=== PATIENT | female | born 1950 | race Caucasian/White ===

== ENCOUNTER 2018-07-08 17:57 | Emergency (ER) | payer BC, OTHER ==
--- NOTE | 2018-07-08 19:31 | EDM.PDOC ---
ED HPI GENERAL MEDICAL PROBLEM - General Chief Complaint: Eye Problems Stated Complaint: EYE BLEEDING Time Seen by Provider: 07/08/18 19:26 Source of Information: Reports: Patient History Limitations: Reports: No Limitations - History of Present Illness INITIAL COMMENTS - FREE TEXT/NARRATIVE: 68 yo female had surgery on her R eye on Thursday of this week on an eye muscle. She has had some bleeding on and off since then, but this afternoon the bleeding was heavier so she came here. She did not attempt to reach her eye doctor. She has no current pain or visual impairment. Bleeding was stopped on arrival. At one point when the bleeding was heaviest blood came out her R nostril and this worried her. She denies any injury to that eye since her surgery. 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) - Related Data Allergies Allergy/AdvReac Type Severity Reaction Status Date / Time triamcinolone [From Kenalog] Allergy Rash Verified 06/24/17 20:52 Home Meds: Home Meds Acetaminophen/Caffeine [Excedrin Tension Headache] 2 tab PO BID PRN 11/26/14 [ History] Armodafinil [Nuvigil] 125 mg PO BID 11/26/14 [History] Calcium Carbonate [Calcium] 500 mg PO DAILY 11/26/14 [History] Cyanocobalamin (Vitamin B-12) [Vitamin B-12] 1 tab PO DAILY 11/26/14 [History] Furosemide [Lasix] 20 mg PO DAILY 11/26/14 [History] Lutein/Minerals/Vit A,C & E [Ocuvite] 1 tab PO DAILY 11/26/14 [History] Sertraline [Zoloft] 50 mg PO BEDTIME 11/26/14 [History] atoMOXetine HCl [Strattera] 60 mg PO DAILY 11/26/14 [History] Past Medical History HEENT History: Reports: Impaired Vision, Sinusitis Cardiovascular History: Reports: Hypertension Other Cardiovascular History: Lymph edema Respiratory History: Reports: Sleep Apnea Other Respiratory History: Recent pneumonia @ nodules l lung 3 and 4 ml Genitourinary History: Reports: Urinary Incontinence, Other (See Below) Other Genitourinary History: occ uti 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: Reports: , Other (See Below) Other TIRE 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: Partial hysterectomy Neurological History: Reports: TIA Psychiatric History: Reports: Depression Oncologic (Cancer) History: Reports: Basal Cell Carcinoma Dermatologic History: Reports: Other (See Below) Other Dermatologic History: dry skin - Infectious Disease History Infectious Disease History: Reports: Chicken Pox, Measles, Mumps, Rubella, Shingles - Past Surgical History Cardiovascular Surgical History: Reports: Varicose GI Surgical History: Reports: Bariatric Procedure, Cholecystectomy, Hernia Repair/Other Musculoskeletal Surgical History: Reports: Knee Replacement Social & Family History - Caffeine Use Caffeine Use: Reports: Coffee, Soda ED ROS GENERAL - Review of Systems Review Of Systems: See Below Constitutional: Reports: No Symptoms HEENT: Reports: Eye Discharge (blood), Nosebleed (R nostril only, likely blood from the R eye via the nasolacrimal duct. ). Denies: Eye Pain Respiratory: Reports: No Symptoms Cardiovascular: Reports: No Symptoms Endocrine: Reports: No Symptoms GI/Abdominal: Reports: No Symptoms : Reports: No Symptoms Musculoskeletal: Reports: No Symptoms Skin: Reports: No Symptoms Neurological: Reports: No Symptoms ED EXAM GENERAL W FULL EYE - Physical Exam Exam: See Below Exam Limited By: No Limitations General Appearance: Alert, WD/WN, No Apparent Distress Eye Exam: Bilateral Eye: EOMI, Normal Inspection, PERRL, Other (no bleeding at this time) Eyelids: Right: Ecchymosis (minor bruising upper lid only) Conjunctiva & Sclera: Bilateral: Normal Appearance Cornea Exam: Bilateral: Normal Appearance Extraocular Movements: Bilateral: Intact Pupils: Normal Accommodation Pupillary Size: Bilateral: 3 mm Pupillary Reaction: Bilateral: Brisk Ears: Normal External Exam, Normal Canal, Hearing Grossly Normal Nose: Normal Inspection, Normal Mucosa, No Blood Throat/Mouth: Normal Inspection, Normal Lips, Normal Oropharynx, Normal Voice, No Airway Compromise Head: Atraumatic, Normocephalic Neck: Normal Inspection, Supple Respiratory/Chest: No Respiratory Distress, No Accessory Muscle Use Cardiovascular: Regular Rate, Rhythm Extremities: Normal Inspection Neurological: Alert, Oriented, CN II-XII Intact, Normal Cognition, No Motor/ Sensory Deficits Psychiatric: Normal Affect, Normal Mood Skin Exam: Warm, Dry, Intact, Normal Color, No Rash Departure - Departure Time of Disposition: 19:33 Disposition: Home, Self-Care 01 Condition: Good Clinical Impression: Post-op bleeding Qualifiers: Surgical complication system/body Area: eye Procedure type: ophthalmic Laterality: right Qualified Code(s): H59.311 - Postprocedural hemorrhage of right eye and adnexa following an ophthalmic procedure - Discharge Information *PRESCRIPTION DRUG MONITORING PROGRAM REVIEWED*: Not Applicable *COPY OF PRESCRIPTION DRUG MONITORING REPORT IN PATIENT SUSANNAH: Not Applicable Referrals: Torsten Washington PA [Primary Care Provider] - Additional Instructions: Continue plan as outlined by your eye doctor. Rest tonight. Call your eye doctor tomorrow morning to report your status. Return here as needed.
[2018-07-08 21:14] VITALS: BP 138/88
== END 2018-07-08 19:40 | disposition home or self-care (01) ==
LOC: FB.ED 17:57
DX: H59.311 Postprocedural hemorrhage of right eye and adnexa following an ophthalmic procedure (principal); I10 Essential (primary) hypertension; Z79.899 Other long term (current) drug therapy; Z88.8 Allergy status to other drugs, medicaments and biological substances
CPT/HCPCS: 99283

== ENCOUNTER 2018-12-05 13:58 | Emergency (ER) | payer MEDICARE, OTHER ==
--- NOTE | 2018-12-05 14:45 | EDM.PDOC ---
ED HPI GENERAL MEDICAL PROBLEM - General Chief Complaint: Cardiovascular Problem Stated Complaint: POSSIBLE CELLULITES Time Seen by Provider: 12/05/18 13:58 Source of Information: Reports: Patient, Family History Limitations: Reports: No Limitations - History of Present Illness INITIAL COMMENTS - FREE TEXT/NARRATIVE: 68 y.o.w.f with a h/o lymphedema lower extremities was seen at the clinic and sent to the ED due increasing swelling of the right lower extremity since last Thursday or before that time. Pt says she has sob off and on for a few week; minor, however. No trauma, no F/C, no N/V/D or dizziness, no Chest pain, no other acute medical issue. BP 150/76 RR 18 Pulse ox 100% on RA Temp 36.8 pulse 76 Onset Date: 12/01/18 Onset Time: 07:00 Duration: Day(s):, Getting Worse, Intermittent Location: Reports: Lower Extremity, Right Quality: Reports: Dull, Pressure Severity: Moderate Improves with: Reports: None Worsens with: Reports: None Context: Reports: Other Associated Symptoms: Reports: Other (pain right lower leg) Right lower leg Pain Score (Numeric/FACES): 8 - Related Data Allergies Allergy/AdvReac Type Severity Reaction Status Date / Time triamcinolone [From Kenalog] Allergy Rash Verified 12/06/18 12:59 Home Meds: Home Meds Acetaminophen/Caffeine [Excedrin Tension Headache] 2 tab PO BID PRN 11/26/14 [ History] Armodafinil [Nuvigil] 125 mg PO BID 11/26/14 [History] Calcium Carbonate [Calcium] 500 mg PO DAILY 11/26/14 [History] Cyanocobalamin (Vitamin B-12) [Vitamin B-12] 1 tab PO DAILY 11/26/14 [History] Furosemide [Lasix] 20 mg PO DAILY 11/26/14 [History] Lutein/Minerals/Vit A,C & E [Ocuvite] 1 tab PO DAILY 11/26/14 [History] Sertraline [Zoloft] 50 mg PO BEDTIME 11/26/14 [History] atoMOXetine HCl [Strattera] 60 mg PO DAILY 11/26/14 [History] Losartan [Cozaar] 25 mg PO DAILY 12/05/18 [History] Past Medical History HEENT History: Reports: Cataract, Impaired Vision, Sinusitis Cardiovascular History: Reports: Hypertension Other Cardiovascular History: Lymph edema Respiratory History: Reports: Sleep Apnea Other Respiratory History: Recent pneumonia @ nodules l lung 3 and 4 ml Gastrointestinal History: Reports: GERD Genitourinary History: Reports: Urinary Incontinence, Other (See Below) Other Genitourinary History: occ uti 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: , Other (See Below) 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 COURT 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: Partial hysterectomy Neurological History: Reports: TIA Psychiatric History: Reports: Depression Oncologic (Cancer) History: Reports: Basal Cell Carcinoma Dermatologic History: Reports: Other (See Below) Other Dermatologic History: dry skin - Infectious Disease History Infectious Disease History: Reports: Chicken Pox, Measles, Mumps, Rubella, Shingles - Past Surgical History HEENT Surgical History: Reports: Tonsillectomy Cardiovascular Surgical History: Reports: Varicose GI Surgical History: Reports: Bariatric Procedure, Cholecystectomy, Colonoscopy , Hernia Repair/Other Female Surgical History: Reports: Other (See Below) Other Female Surgeries/Procedures: Partial hysterectomy. 5 breast lumpectomies Musculoskeletal Surgical History: Reports: Knee Replacement Oncologic Surgical History: Reports: Lumpectomy Social & Family History - Family History Family Medical History: Noncontributory - Tobacco Use Smoking Status *Q: Never Smoker Second Hand Smoke Exposure: Yes - Caffeine Use Caffeine Use: Reports: Coffee - Recreational Drug Use Recreational Drug Use: No ED ROS GENERAL - Review of Systems Review Of Systems: See Below Constitutional: Reports: No Symptoms HEENT: Reports: No Symptoms Respiratory: Reports: No Symptoms Cardiovascular: Reports: No Symptoms Endocrine: Reports: No Symptoms GI/Abdominal: Reports: No Symptoms : Reports: No Symptoms Musculoskeletal: Reports: No Symptoms Skin: Reports: Rash (right lower leg) Neurological: Reports: No Symptoms Psychiatric: Reports: No Symptoms Hematologic/Lymphatic: Reports: No Symptoms Immunologic: Reports: No Symptoms ED EXAM, GENERAL - Physical Exam Exam: See Below Exam Limited By: No Limitations General Appearance: Alert, WD/WN, Mild Distress Eye Exam: Bilateral Eye: Normal Inspection Ears: Normal External Exam Ear Exam: Bilateral Ear: Auricle Normal Nose: Normal Inspection, Normal Mucosa Throat/Mouth: Normal Inspection, Normal Lips, Normal Voice, No Airway Compromise Head: Atraumatic, Normocephalic Neck: Normal Inspection, Supple, Non-Tender, Full Range of Motion Respiratory/Chest: No Respiratory Distress, Lungs Clear, Normal Breath Sounds, No Accessory Muscle Use, Chest Non-Tender Cardiovascular: Normal Peripheral Pulses, Regular Rate, Rhythm, No Edema, No Gallop, No JVD, No Murmur, No Rub GI/Abdominal: Normal Bowel Sounds, Soft, Non-Tender, No Organomegaly, No Abnormal Bruit, No Mass, Pelvis Stable (Female) Exam: Deferred Rectal (Female) Exam: Deferred Back Exam: Normal Inspection, Full Range of Motion Extremities: Normal Range of Motion, Pedal Edema (R>L), Leonora's Sign Neurological: Alert, Oriented, CN II-XII Intact, Normal Cognition, Abnormal Gait (right lower leg pain) Psychiatric: Normal Affect, Normal Mood Skin Exam: Warm, Dry, Erythema (right lower leg), Increased Warmth, Rash (right lower leg) Lymphatic: No Adenopathy EKG INTERPRETATION EKG Date: 12/05/18 Time: 16:05 Rhythm: NSR Rate (Beats/Min): 73 [place]: Normal P-Wave: Present QRS: Normal ST-T: Normal QT: Normal Comparison: NA - No Prior EKG Course - Vital Signs Text/Narrative:: 68 y.o.w.f with a h/o lymphedema lower extremities was seen at the clinic and sent to the ED due increasing swelling of the right lower extremity since last Thursday or before that time. Pt says she has sob off and on for a few week; minor, however. No trauma, no F/C, no N/V/D or dizziness, no Chest pain, no other acute medical issue. BP 150/76 RR 18 Pulse ox 100% on RA Temp 36.8 pulse 76 PE: WNWD WF with lower extr lymphedema R worse then left, Erythema right lower leg Imaging: Angio Chest: NEG for PE, multiple, small nonspecific lung nodules, mild atelectasis. U/S doppler not available tonight Labs: CBC nl BMP Nl except Ca 8.5 D Dimer 1.95 BCx results are pending K 3.0. INR 1.09 Impression: Cellulitis RL extremity, Swelling RL leg (DDx DVT, cellulitis). HTN. Multiple, small nonspecific lung nodules, mild atelectasis, Hypokalemia Tx: Hydralazine, Rocephine, Potassium. Lovenox 4.04 pm Consultation: Dr. Sannes, Hospitalist: No need for admission Reexam: Improved Plan: D/C with instructions Last Recorded V/S: Last Vital Signs Temp 36.8 C 12/05/18 18:34 Pulse 89 12/05/18 18:34 Resp 20 12/05/18 18:34 BP 164/92 H 12/05/18 18:34 Pulse Ox 100 12/05/18 18:34 - Orders/Labs/Meds Labs: Laboratory Tests 12/05/18 12/05/18 12/05/18 Range/Units 14:45 14:45 14:45 WBC 6.4 (4.5-12.0) X10-3/uL RBC 4.23 (3.23-5.20) x10(6)uL Hgb 12.1 (11.5-15.5) g/dL Hct 36.2 (30.0-51.3) % MCV 85.6 (80-96) fL MCH 28.6 (27.7-33.6) pg MCHC 33.4 (32.2-35.4) g/dL RDW 13.0 (11.5-15.5) % Plt Count 357 (125-369) X10(3)uL MPV 8.8 (7.4-10.4) fL Neut % (Auto) 69.2 (46-82) % Lymph % (Auto) 16.3 (13-37) % Hardin % (Auto) 8.2 (4-12) % Eos % (Auto) 5 (1.0-5.0) % Baso % (Auto) 2 (0-2) % Neut # (Auto) 4.4 (1.6-8.3) # Lymph # (Auto) 1.0 (0.6-5.0) # Hardin # (Auto) 0.5 (0.0-1.3) # Eos # (Auto) 0.3 (0.0-0.8) # Baso # (Auto) 0.1 (0.0-0.2) # PT 9.3 (8.7-11.1) INR 0.96 (0.89-1.13) D-Dimer, Quantitative (0.0-0.59) mg/LFEU Sodium 143 (135-145) mmol/L Potassium 3.0 L (3.5-5.3) mmol/L Chloride 106 (100-110) mmol/L Carbon Dioxide 32 (21-32) mmol/L BUN 16 (7-18) mg/dL Creatinine 0.9 (0.55-1.02) mg/dL Est Cr Clr Drug Dosing 47.97 mL/min Estimated GFR (MDRD) > 60 (>60) BUN/Creatinine Ratio 17.8 (9-20) Glucose 92 (80-116) mg/dL Lactic Acid (0.4-2.2) mmol/L Calcium 8.5 L (8.6-10.2) mg/dL Magnesium (1.8-2.5) mg/dL NT-Pro-B Natriuret Pep (<=125) pg/mL 12/05/18 12/05/18 12/05/18 Range/Units 14:45 14:45 14:45 WBC (4.5-12.0) X10-3/uL RBC (3.23-5.20) x10(6)uL Hgb (11.5-15.5) g/dL Hct (30.0-51.3) % MCV (80-96) fL MCH (27.7-33.6) pg MCHC (32.2-35.4) g/dL RDW (11.5-15.5) % Plt Count (125-369) X10(3)uL MPV (7.4-10.4) fL Neut % (Auto) (46-82) % Lymph % (Auto) (13-37) % Hardin % (Auto) (4-12) % Eos % (Auto) (1.0-5.0) % Baso % (Auto) (0-2) % Neut # (Auto) (1.6-8.3) # Lymph # (Auto) (0.6-5.0) # Hardin # (Auto) (0.0-1.3) # Eos # (Auto) (0.0-0.8) # Baso # (Auto) (0.0-0.2) # PT (8.7-11.1) INR (0.89-1.13) D-Dimer, Quantitative 1.95 H (0.0-0.59) mg/LFEU Sodium (135-145) mmol/L Potassium (3.5-5.3) mmol/L Chloride (100-110) mmol/L Carbon Dioxide (21-32) mmol/L BUN (7-18) mg/dL Creatinine (0.55-1.02) mg/dL Est Cr Clr Drug Dosing mL/min Estimated GFR (MDRD) (>60) BUN/Creatinine Ratio (9-20) Glucose (80-116) mg/dL Lactic Acid 0.9 (0.4-2.2) mmol/L Calcium (8.6-10.2) mg/dL Magnesium (1.8-2.5) mg/dL NT-Pro-B Natriuret Pep 775 H (<=125) pg/mL 12/05/18 Range/Units 15:45 WBC (4.5-12.0) X10-3/uL RBC (3.23-5.20) x10(6)uL Hgb (11.5-15.5) g/dL Hct (30.0-51.3) % MCV (80-96) fL MCH (27.7-33.6) pg MCHC (32.2-35.4) g/dL RDW (11.5-15.5) % Plt Count (125-369) X10(3)uL MPV (7.4-10.4) fL Neut % (Auto) (46-82) % Lymph % (Auto) (13-37) % Hardin % (Auto) (4-12) % Eos % (Auto) (1.0-5.0) % Baso % (Auto) (0-2) % Neut # (Auto) (1.6-8.3) # Lymph # (Auto) (0.6-5.0) # Hardin # (Auto) (0.0-1.3) # Eos # (Auto) (0.0-0.8) # Baso # (Auto) (0.0-0.2) # PT (8.7-11.1) INR (0.89-1.13) D-Dimer, Quantitative (0.0-0.59) mg/LFEU Sodium (135-145) mmol/L Potassium (3.5-5.3) mmol/L Chloride (100-110) mmol/L Carbon Dioxide (21-32) mmol/L BUN (7-18) mg/dL Creatinine (0.55-1.02) mg/dL Est Cr Clr Drug Dosing mL/min Estimated GFR (MDRD) (>60) BUN/Creatinine Ratio (9-20) Glucose (80-116) mg/dL Lactic Acid (0.4-2.2) mmol/L Calcium (8.6-10.2) mg/dL Magnesium 2.1 (1.8-2.5) mg/dL NT-Pro-B Natriuret Pep (<=125) pg/mL Meds: Medications Discontinued Medications Generic Name Dose Route Start Last Admin Trade Name Freq PRN Reason Stop Dose Admin Enoxaparin Sodium 120 mg 12/05/18 15:51 12/05/18 16:08 Lovenox SUBCUT 12/05/18 15:52 120 mg ONETIME ONE Administration Hydralazine HCl 10 mg 12/05/18 17:21 12/05/18 17:30 Apresoline IVPUSH 12/05/18 17:22 10 mg ONETIME ONE Administration Ceftriaxone Sodium 1 gm/ 50 mls @ 200 mls/hr 12/05/18 17:54 12/05/18 18:00 Sodium Chloride IV 12/05/18 18:08 200 mls/hr ONETIME ONE Administration Iopamidol 75 ml 12/05/18 16:00 12/05/18 16:44 Isovue-370 (76%) IV 12/05/18 16:01 75 ml ONETIME ONE Administration Potassium Chloride 40 meq 12/05/18 17:45 12/05/18 17:56 Klor-Con M20 PO 12/05/18 17:46 40 meq ONETIME STA Administration Sodium Chloride 10 ml 12/05/18 17:33 12/05/18 17:34 Saline Flush FLUSH 10 ml ASDIRECTED PRN Administration IV Use Departure - Departure Time of Disposition: 20:00 Disposition: Home, Self-Care 01 Condition: Good Clinical Impression: Cellulitis of right leg without foot, Swelling of right lower extremity Instructions: Edema, [id number] Referrals: Torsten Washington PA [Primary Care Provider] - Forms: ED Department Discharge, ED Return to Work/School Form Additional Instructions: Please elevate right lower leg above your heart. tylenol for pain. Please come for an US study in the morning at 10 am 12/06/2018 here at [facility]. to rule out a DVT at your right lower leg
[2018-12-05] MEDS ORDERED: Enoxaparin 120 MG/0.8 ML Syringe SUBCUT ONE (15:51)
[2018-12-05] MEDS ORDERED: Iopamidol 755 Mg/ML 75 ML Bottle IV ONE (16:00)
[2018-12-05] MEDS ORDERED: hydrALAZINE 20 MG/ML SDV IVPUSH ONE (17:21)
[2018-12-05] MEDS ORDERED: Sodium Chloride 0.9% 10 ML Syringe FLUSH PRN (17:33)
[2018-12-05] MEDS ORDERED: Potassium Chloride 20 MEQ Tab.ER PO STA (17:45)
[2018-12-05] MEDS ORDERED: cefTRIAXone 1 GM in Sodium Chloride 0.9% 50 ML IV ONE (17:54)
[2018-12-05 18:52] VITALS: BP 164/92
== END 2018-12-05 18:49 | disposition home or self-care (01) ==
LOC: FB.ED 13:58
DX: L03.115 Cellulitis of right lower limb (principal); R91.8 Other nonspecific abnormal finding of lung field; J98.11 Atelectasis; E87.6 Hypokalemia; F32.9 Major depressive disorder, single episode, unspecified; I10 Essential (primary) hypertension; Z88.8 Allergy status to other drugs, medicaments and biological substances; Z79.899 Other long term (current) drug therapy
CPT/HCPCS: 36415; 71275; 80048; 83605; 83735; 83880; 85025; 85379; 85610; 87040; 93005; 96372; 96374; 96375; 99284; A9270; J0360; J0696; J1650; J7050; Q9967

== ENCOUNTER 2018-12-06 11:39 | Emergency (ER) | payer OTHER ==
[2018-12-06] MEDS ORDERED: Labetalol 20 MG/4 ML Syringe IVPUSH ONE (12:16)
--- NOTE | 2018-12-06 12:22 | EDM.PDOC ---
ED HPI GENERAL MEDICAL PROBLEM - General Stated Complaint: BLOOD CLOT Time Seen by Provider: 12/06/18 11:39 Source of Information: Reports: Patient, Family History Limitations: Reports: No Limitations - History of Present Illness INITIAL COMMENTS - FREE TEXT/NARRATIVE: 68 y.o.w.f with lower extremity lymphedema r>l was seen by me yesterday and was scheduled for a lower leg US Doppler study today to R/O DVT at her loer leg. The sudy was neg for DVT, however, there was a 2 cm LK at her right groin seen at the Doppler study today, for which the patient came back to the ED. Pt was given yesterday prophylactically 120 mg of Lovenox, pending Doppler study for presumed DVT right lower leg, which was neg. Pt denied SOB, N/V/D, she has pain at her right lower extremity when ambulating. No other acute medical issues. BP 177/98 RR 18 Pulse ox 97% on RA Temp 37.1 Pulse 81 Onset Date: 11/24/18 Onset Time: 08:00 Duration: Day(s):, Getting Worse, Intermittent Location: Reports: Lower Extremity, Right Quality: Reports: Dull Severity: Moderate Improves with: Reports: Rest Worsens with: Reports: Movement Context: Reports: Other Associated Symptoms: Reports: No Other Symptoms Bilateral Lower Leg Pain Score (Numeric/FACES): 5 - Related Data Allergies Allergy/AdvReac Type Severity Reaction Status Date / Time triamcinolone [From Kenalog] Allergy Rash Verified 12/06/18 12:59 Home Meds: Home Meds Acetaminophen/Caffeine [Excedrin Tension Headache] 2 tab PO BID PRN 11/26/14 [ History] Armodafinil [Nuvigil] 125 mg PO BID 11/26/14 [History] Calcium Carbonate [Calcium] 500 mg PO DAILY 11/26/14 [History] Cyanocobalamin (Vitamin B-12) [Vitamin B-12] 1 tab PO DAILY 11/26/14 [History] Furosemide [Lasix] 20 mg PO DAILY 11/26/14 [History] Lutein/Minerals/Vit A,C & E [Ocuvite] 1 tab PO DAILY 11/26/14 [History] Sertraline [Zoloft] 50 mg PO BEDTIME 11/26/14 [History] atoMOXetine HCl [Strattera] 60 mg PO DAILY 11/26/14 [History] Losartan [Cozaar] 25 mg PO DAILY 12/05/18 [History] Past Medical History HEENT History: Reports: Cataract, Impaired Vision, Sinusitis Cardiovascular History: Reports: Hypertension Other Cardiovascular History: Lymph edema Respiratory History: Reports: Sleep Apnea Other Respiratory History: Recent pneumonia @ nodules l lung 3 and 4 ml Gastrointestinal History: Reports: GERD Genitourinary History: Reports: Urinary Incontinence, Other (See Below) Other Genitourinary History: occ uti DIAGNOSTIC RADIOLOGIST History: Reports: , Other (See Below) Other DIAGNOSTIC RADIOLOGIST History: Partial hysterectomy Neurological History: Reports: TIA Psychiatric History: Reports: Depression Oncologic (Cancer) History: Reports: Basal Cell Carcinoma Dermatologic History: Reports: Other (See Below) Other Dermatologic History: dry skin - Infectious Disease History Infectious Disease History: Reports: Chicken Pox, Measles, Mumps, Rubella, Shingles - Past Surgical History HEENT Surgical History: Reports: Tonsillectomy Cardiovascular Surgical History: Reports: Varicose GI Surgical History: Reports: Bariatric Procedure, Cholecystectomy, Colonoscopy , Hernia Repair/Other Female Surgical History: Reports: Other (See Below) Other Female Surgeries/Procedures: Partial hysterectomy. 5 breast lumpectomies Musculoskeletal Surgical History: Reports: Knee Replacement Oncologic Surgical History: Reports: Lumpectomy Social & Family History - Family History Family Medical History: Noncontributory - Caffeine Use Caffeine Use: Reports: Coffee ED ROS GENERAL - Review of Systems Review Of Systems: See Below Constitutional: Reports: No Symptoms HEENT: Reports: No Symptoms Respiratory: Reports: No Symptoms Cardiovascular: Reports: No Symptoms Endocrine: Reports: No Symptoms GI/Abdominal: Reports: No Symptoms : Reports: No Symptoms Musculoskeletal: Reports: No Symptoms Skin: Reports: Erythema (right lower leg) Neurological: Reports: No Symptoms Psychiatric: Reports: No Symptoms Hematologic/Lymphatic: Reports: No Symptoms Immunologic: Reports: No Symptoms ED EXAM,LOWER BACK PAIN/INJURY - Physical Exam Exam: See Below Exam Limited By: No Limitations General Appearance: Alert, WD/WN, Mild Distress Eye Exam: Bilateral Eye: Normal Inspection Ears: Normal External Exam Nose: Normal Inspection Throat/Mouth: Normal Inspection, Normal Lips, Normal Voice, No Airway Compromise Head: Atraumatic, Normocephalic Neck: Normal Inspection, Supple, Non-Tender, Full Range of Motion Respiratory/Chest: No Respiratory Distress, Lungs Clear, Normal Breath Sounds, Chest Non-Tender Cardiovascular: Normal Peripheral Pulses, Regular Rate, Rhythm, No Edema, No Gallop GI/Abdominal: Normal Bowel Sounds, Soft, Non-Tender, No Organomegaly, No Abnormal Bruit, No Mass, Pelvis Stable (Female) Exam: Deferred Rectal (Female) Exam: Deferred Back Exam: Normal Inspection, Full Range of Motion Extremities: Normal Range of Motion, Pedal Edema (lymphedema R>L loower extremity) Neurological: Alert, Normal Mood/Affect, Normal Dorsiflexion, Oriented x 3, Abnormal Gait (due to pain right lower leg) Psychiatric: Normal Affect, Normal Mood Skin Exam: Erythema Lymphatic: No Adenopathy Course - Vital Signs Text/Narrative:: 68 y.o.w.f with lower extremity lymphedema r>l was seen by me yesterday and was scheduled for a lower leg US Doppler study today to R/O DVT at her loer leg. The sudy was neg for DVT, however, there was a 2 cm LK at her right groin seen at the Doppler study today, for which the patient came back to the ED. Pt was given yesterday prophylactically 120 mg of Lovenox, pending Doppler study for presumed DVT right lower leg, which was neg. Pt denied SOB, N/V/D, she has pain at her right lower extremity when ambulating. No other acute medical issues. BP 177/98 RR 18 Pulse ox 97% on RA Temp 37.1 Pulse 81 PE: WNWD W F with lymphedema lower extemities R.L and bilat inguinal Lymphonodes enlargements, HTN Imaging: U/S doppler: Neg for DVT pos for LK enlargement the right groin 2 cm and at the left groin 1 cm(?) Labs: Please see notes from yesterday. Impression: Lymphedema lower extremities R>L with inguinal LK swelling, HTN Tx: Labetolol 10 mg Consultation: Dr. Case, Hospitalist: Will arrange and schedule of LK biopsy at the [facility] in [place] Reexam: Pt was doing fine, BP was 141/78 on D/C Plan: D/C with instructions Last Recorded V/S: Last Vital Signs Temp 37.1 C 12/06/18 12:00 Pulse 70 01/14/19 14:30 Resp 18 12/06/18 14:30 BP 158/87 H 12/06/18 14:30 Pulse Ox 99 12/06/18 14:30 - Orders/Labs/Meds Orders: Active Orders 24 hr Category Date Time Status Saline Lock Insert [OM.PC] Routine Oth 12/06/18 13:23 Ordered Labs: Laboratory Tests 12/06/18 Range/Units 12:25 Urine Color Yellow (YELLOW) Urine Appearance Clear (CLEAR) Urine pH 7.0 H (5.0-6.5) Ur Specific [place] 1.015 (1.010-1.025) Urine Protein Negative (NEGATIVE) mg/dL Urine Glucose (UA) Normal (NEGATIVE) mg/dL Urine Ketones Negative (NEGATIVE) mg/dL Urine Occult Blood Negative (NEGATIVE) Urine Nitrite Negative (NEGATIVE) Urine Bilirubin Negative (NEGATIVE) Urine Urobilinogen Normal (NEGATIVE) mg/dL Ur Leukocyte Esterase Negative (NEGATIVE) Urine RBC 0-5 (0) Urine WBC 0-5 (0) Ur Squamous Epith Cells Moderate H (NS,R,O) Urine Bacteria Few H (NS) Meds: Medications Discontinued Medications Generic Name Dose Route Start Last Admin Trade Name Freq PRN Reason Stop Dose Admin Labetalol HCl 20 mg 12/06/18 12:16 12/06/18 13:06 Normodyne IVPUSH 12/06/18 12:17 10 mg ONETIME ONE Administration Protocol Sodium Chloride 10 ml 12/06/18 13:23 12/06/18 13:23 Saline Flush FLUSH 10 ml ASDIRECTED PRN Administration Keep Vein Open Departure - Departure Time of Disposition: 14:51 Disposition: Home, Self-Care 01 Condition: Good Clinical Impression: Lymph edema - Discharge Information Instructions: Lymphedema Referrals: PCP,None [Primary Care Provider] - Samir Bell MD [Ordering Only Provider] - Forms: ED Return to Work/School Form Additional Instructions: Please f/u with Dr. Bell on Wednesday December 08, 799 at the [facility] in [place], [place]. Call [phone] if you need to reschedule. No working until after seen by Dr. Bell. Follow up with your publicity consultant re: new CT so it can be compared to the old CT. - My Orders Last 24 Hours: My Active Orders 12/06/18 13:23 Saline Lock Insert [OM.PC] Routine - Assessment/Plan Last 24 Hours: My Active Orders 12/06/18 13:23 Saline Lock Insert [OM.PC] Routine
[2018-12-06] MEDS ORDERED: Sodium Chloride 0.9% 10 ML Syringe FLUSH PRN (13:23)
--- NOTE | 2018-12-06 15:16 | PCM.CONS ---
H&P History of Present Illness - General Date of Service: 12/06/18 Source of Information: Patient, Family, Old Records, Provider History Limitations: Reports: No Limitations - History of Present Illness Initial Comments - Free Text/Narative: Patient is a 68-year-old female with a chronic history of lymphedema for the last 15 years who over the last week has had increased swelling in her lower extremities, right greater than left. Typically her right is more swollen than the left but currently legs are about twice the size they normally are. She's not been ill otherwise. No fevers, no chills, no sweats, no cold or cough symptoms, no chest pain or shortness of breath. She's had cellulitis before in her lower extremities and this doesn't feel like that. She came into the emergency room yesterday for evaluation and was seen, ultrasound was not available so she was given a shot of Lovenox and asked to come back this morning for ultrasound to rule out DVT. She had a CT done because while she was in the emergency room she developed a little shortness of breath which resolved. CT was negative for PE but did show some nodules which on chart review appear to have been present previously. When she came back this morning for ultrasound the ultrasound was negative for DVT but did show enlarged lymph nodes in the bilateral groin but the largest lymph node was in the right groin at about 2 cm. The patient then presented back to the emergency department and I was asked to consider the patient for admission. The patient has been ambulating well at home. She's not been having a difficult time getting around. Her legs do hurt but they hurt like her typical lymphedema pain. She's also noted over the last 2 weeks increased pain in the right groin which comes and goes with activity and movement. However this has resolved over the last 5 days. Past medical history: -Lymphedema 15 years. Started after she had varicose vein stripping. She uses Roque socks occasionally, Lasix daily, and has some type of lymphedema machine that she is unable to use because her legs are too swollen. She also has lymphedema braces. She is not working with physical or occupational therapy, has never seen a lymphedema specialist. -Hypertension -Depression and anxiety -Gastric bypass surgery in 1984 which sounds like it was revised in 1999. -Basal cell carcinoma of the right Jaw in 2014 -Urinary incontinence -Osteoporosis -History of gout -Question of history of congestive heart failure which was apparently diagnosed at a clinic visit but echocardiogram has never shown any evidence of heart failure and most recent echo 04/02/18 showed an ejection fraction of 60-65% and no diastolic dysfunction. -History of pulmonary nodules since 2004. Most recent CT scan was in [address] [facility]. -Question of narcolepsy. Social history: The patient lives in [place] and moved here in May from [place]. She in 2011 and has 3 grown daughters. 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 She is a nonsmoker, nondrinker. Of note the patient's [id number] recently and they had a just a few days ago which has been difficult for the patient. Family history: Mother at 95 of old age complications. She had hypertension, had a fall, and ultimately from injuries related to this. The patient's father at 63 of massive myocardial infarction and stroke. He had his first heart attack at 42 and had a history of coronary artery bypass grafting. She has one brother who is overweight and 5 sisters who are healthy although a couple of them have high blood pressure and one recently had a pacemaker placed. Please see below for details as to history and physical exam, laboratory testing results. Impression: #1 Lymphedema, right greater than left, with enlarged lymph nodes. I feel the patient would benefit from outpatient treatment of her lymphedema and further evaluation with a surgeon to discuss the best means of further evaluating the lymph node. The patient requested Dr. Samir Bell and fortunately he was monitor worker so I was able to contact him directly and he recommended that the patient be seen in his clinic. He will then determine whether or not an open biopsy or needle aspiration would be in the patient's best interest and also give recommendations regarding her lymphedema management. An appointment was made for the patient for December 08, at 8 AM at the [employer] [facility] [employer] with Dr. Bell. Recommended no work until she sees the surgeon in follow-up. Zach wraps were applied to her lower extremities and she was advised to walk or lie with her feet elevated but avoid standing or sitting with her legs dangling. This will help in relieving some of the swelling. No new medications and given the absence of DVT the patient was advised she does not need to start any blood thinners. #[address] chest left upper lobe. Patient has had these before and I asked for our images to be pushed through to radiology at [facility] so that they can be compared to previous CT scans. Patient instructed to contact her pot press operator and they can compare the images and decide if the patient needs any further evaluation. I suspect that these are unchanged. Thank you for this consultation. A copy of my note will be on the chart and will also be faxed to Gen. surgery [facility] at [phone]. Reviewed my recommendations with the patient and her family members, and with Dr. Hair prior to discharge from ER. - Related Data Allergies/Adverse Reactions: Allergies Allergy/AdvReac Type Severity Reaction Status Date / Time triamcinolone [From Kenalog] Allergy Rash Verified 12/06/18 12:59 Home Medications: Home Meds Acetaminophen/Caffeine [Excedrin Tension Headache] 2 tab PO BID PRN 11/26/14 [ History] Armodafinil [Nuvigil] 125 mg PO BID 11/26/14 [History] Calcium Carbonate [Calcium] 500 mg PO DAILY 11/26/14 [History] Cyanocobalamin (Vitamin B-12) [Vitamin B-12] 1 tab PO DAILY 11/26/14 [History] Furosemide [Lasix] 20 mg PO DAILY 11/26/14 [History] Lutein/Minerals/Vit A,C & E [Ocuvite] 1 tab PO DAILY 11/26/14 [History] Sertraline [Zoloft] 50 mg PO BEDTIME 11/26/14 [History] atoMOXetine HCl [Strattera] 60 mg PO DAILY 11/26/14 [History] Losartan [Cozaar] 25 mg PO DAILY 12/05/18 [History] Past Medical History HEENT History: Reports: Cataract, Impaired Vision, Sinusitis Cardiovascular History: Reports: Hypertension Other Cardiovascular History: Lymph edema Respiratory History: Reports: Sleep Apnea Other Respiratory History: Recent pneumonia @ nodules l lung 3 and 4 ml Gastrointestinal History: Reports: GERD Genitourinary History: Reports: Urinary Incontinence, Other (See Below) Other Genitourinary History: occ uti FIREWORKS INSPECTOR History: Reports: , Other (See Below) Other OB/BYN History: Partial hysterectomy Neurological History: Reports: TIA Psychiatric History: Reports: Depression Oncologic (Cancer) History: Reports: Basal Cell Carcinoma Dermatologic History: Reports: Other (See Below) Other Dermatologic History: dry skin - Infectious Disease History Infectious Disease History: Reports: Chicken Pox, Measles, Mumps, Rubella, Shingles - Past Surgical History HEENT Surgical History: Reports: Tonsillectomy Cardiovascular Surgical History: Reports: Varicose GI Surgical History: Reports: Bariatric Procedure, Cholecystectomy, Colonoscopy , Hernia Repair/Other Female Surgical History: Reports: Other (See Below) Other Female Surgeries/Procedures: Partial hysterectomy. 5 breast lumpectomies Musculoskeletal Surgical History: Reports: Knee Replacement Oncologic Surgical History: Reports: Lumpectomy Social & Family History - Family History Family Medical History: Noncontributory - Caffeine Use Caffeine Use: Reports: Coffee H&P Review of Systems - Review of Systems: Review Of Systems: ROS reveals no pertinent complaints other than HPI. Exam - Exam Exam: See Below - Exam General: Alert, Oriented, Cooperative HEENT: PERRLA, Conjunctiva Clear, EOMI, Mucosa Moist & [place], Posterior Pharynx Clear Neck: Supple. No: Lymphadenopathy (no supra, infraclavicular or cervical LA noted on exam. ) Lungs: Clear to Auscultation, Normal Respiratory Effort Cardiovascular: Regular Rate, Regular Rhythm, Normal S1, Normal S2 GI/Abdominal Exam: Normal Bowel Sounds, Soft, Non-Tender, No Distention Extremities: Pedal Edema (Significant bilateral lymphedema with legs about 3x normal size. Mild diffuse erythema over the lower right leg, but no tenderness and no focal area of erythema. ) Neuro Extensive - Mental Status: Alert, Oriented x3, Normal Mood/Affect - Patient Data Lab Results Last 24 hrs: Laboratory Results - last 24 hr 12/06/18 Range/Units 12:25 Urine Color Yellow (YELLOW) Urine Appearance Clear (CLEAR) Urine pH 7.0 H (5.0-6.5) Ur Specific [place] 1.015 (1.010-1.025) Urine Protein Negative (NEGATIVE) mg/dL Urine Glucose (UA) Normal (NEGATIVE) mg/dL Urine Ketones Negative (NEGATIVE) mg/dL Urine Occult Blood Negative (NEGATIVE) Urine Nitrite Negative (NEGATIVE) Urine Bilirubin Negative (NEGATIVE) Urine Urobilinogen Normal (NEGATIVE) mg/dL Ur Leukocyte Esterase Negative (NEGATIVE) Urine RBC 0-5 (0) Urine WBC 0-5 (0) Ur Squamous Epith Cells Moderate H (NS,R,O) Urine Bacteria Few H (NS) Labs were unremarkable on previous visit with CBC showing a white count of 6.4, hemoglobin 12.1, platelets 357,000, ESR 32, PT and INR within normal limits, d- dimer 1.95, sodium 143, potassium 3 which was replaced IV and orally in the emergency department, chloride 106, carbon dioxide 32, BUN 16, creatinine 0.9, glucose 92, lactic acid 0.9, calcium 8.5, magnesium 2.1, total bilirubin 0.3, AST 16, ALT 15, alkaline phosphatase 100, troponin 0, C-reactive protein 1.63, albumin 2.8. Labs were not repeated at today's visit. Consult PN Assessment/Plan Procedures: Procedures ASSAY OF TROPONIN QUANT (11/26/14) C-REACTIVE PROTEIN (06/24/17) CHEST X-RAY 2VW FRONTAL&LATL (11/26/14) COMPLETE CBC W/AUTO DIFF WBC (06/24/17) COMPREHEN METABOLIC PANEL (06/24/17) ELECTROCARDIOGRAM TRACING (11/26/14) EMERGENCY DEPT VISIT (07/08/18) EMERGENCY DEPT VISIT (07/08/18) EMERGENCY DEPT VISIT (06/24/17) EMERGENCY DEPT VISIT (11/18/15) EMERGENCY DEPT VISIT (11/26/14) FIBRIN DEGRADATION QUANT (11/26/14) RBC SED RATE NONAUTOMATED (06/24/17) ROUTINE VENIPUNCTURE (06/24/17) Problem List Initiated/Reviewed/Updated: Yes Requesting Provider: Reginaldo Date Consult Requested: 12/06/18 Reason for Consult: lymph node enlargement, lymphedema Patient History Reviewed: Yes Admission H&P Reviewed: No (patient not admitted) Time Spent (in minutes): 75
[2018-12-06 22:05] VITALS: BP 158/87
== END 2018-12-06 15:08 | disposition home or self-care (01) ==
LOC: FB.ED 11:39
DX: I89.0 Lymphedema, not elsewhere classified (principal); I10 Essential (primary) hypertension; F32.9 Major depressive disorder, single episode, unspecified; Z79.899 Other long term (current) drug therapy; R22.43 Localized swelling, mass and lump, lower limb, bilateral
CPT/HCPCS: 81001; 93970; 96374; 99284; J3490

== ENCOUNTER 2021-05-28 21:16 | Emergency (ER) | payer OTHER ==
[2021-05-28] MEDS ORDERED: Potassium Chloride 20 MEQ in Premix Bag 1 BAG IV ONE (22:05)
[2021-05-28] MEDS ORDERED: Sodium Chloride 0.9% 250 ML IV SCH (22:30)
[2021-05-28] MEDS ORDERED: NS + KCl 20mEq/L 1,000 ML IV SCH (23:45)
--- NOTE | 2021-05-28 23:55 | EDM.PDOC ---
ED HPI GENERAL MEDICAL PROBLEM - General Chief Complaint: General Stated Complaint: LOW POTASSIUM VIA RACHEL QUIROZ Time Seen by Provider: 05/28/21 21:40 Source of Information: Reports: Patient History Limitations: Reports: No Limitations - History of Present Illness INITIAL COMMENTS - FREE TEXT/NARRATIVE: Was seen in the clinic earlier and had labs done . Was called at home and told to come in as her potassium level was low Denies any symptoms K level reordered On further interview pt has been having diarrhea for the past 2 weeks has had unintentional weight loss Her PCP is arranging for EGD and colonoscopy Onset: Today Onset Date: 05/28/21 Improves with: Reports: None Worsens with: Reports: None Associated Symptoms: Reports: No Other Symptoms - Related Data Allergies Allergy/AdvReac Type Severity Reaction Status Date / Time triamcinolone [From Kenalog] Allergy Rash Verified 12/06/18 12:59 Home Meds: Home Meds Acetaminophen/Caffeine [Excedrin Tension Headache] 2 tab PO BID PRN 11/26/14 [History] Armodafinil [Nuvigil] 125 mg PO BID 11/26/14 [History] Calcium Carbonate [Calcium] 500 mg PO DAILY 11/26/14 [History] Cyanocobalamin (Vitamin B-12) [Vitamin B-12] 1 tab PO DAILY 11/26/14 [History] Lutein/Minerals/Vit A,C & E [Ocuvite] 1 tab PO DAILY 11/26/14 [History] Sertraline [Zoloft] 50 mg PO BEDTIME 11/26/14 [History] atoMOXetine HCl [Strattera] 60 mg PO DAILY 11/26/14 [History] Losartan [Cozaar] 25 mg PO DAILY 12/05/18 [History] Potassium Chloride 20 meq PO DAILY #10 tablet.er 05/29/21 [Rx] Spironolactone [Aldactone] 25 mg PO DAILY 05/29/21 [History] Torsemide 20 mg PO DAILY 05/29/21 [History] Past Medical History HEENT History: Reports: Cataract, Impaired Vision, Sinusitis Cardiovascular History: Reports: Hypertension Other Cardiovascular History: Lymph edema Respiratory History: Reports: Sleep Apnea Other Respiratory History: Recent pneumonia @ nodules l lung 3 and 4 ml Gastrointestinal History: Reports: GERD Genitourinary History: Reports: Urinary Incontinence, Other (See Below) Other Genitourinary History: occ uti [employer]NTHE[employer] PULPER History: Reports: , Other (See Below) Other [employer]NTHE[employer] SOIL [employer]ULPER History: Partial hysterectomy Neurological History: Reports: TIA Psychiatric History: Reports: ADHD, Anxiety, Depression Oncologic (Cancer) History: Reports: Basal Cell Carcinoma Dermatologic History: Reports: Other (See Below) Other Dermatologic History: dry skin - Infectious Disease History Infectious Disease History: Reports: Chicken Pox, Measles, Mumps, Rubella, Shingles - Past Surgical History HEENT Surgical History: Reports: Tonsillectomy Other HEENT Surgeries/Procedures: reconstructive surgery of the right eyelid. Cardiovascular Surgical History: Reports: Varicose Other Cardiovascular Surgeries/Procedures: vein stripping bilateral legs GI Surgical History: Reports: Bariatric Procedure, Cholecystectomy, Colonoscopy, Hernia Repair/Other Female Surgical History: Reports: Other (See Below) Other Female Surgeries/Procedures: Partial hysterectomy. 5 breast lumpectomies Musculoskeletal Surgical History: Reports: Knee Replacement Oncologic Surgical History: Reports: Lumpectomy Social & Family History - Family History Family Medical History: No Pertinent Family History - Tobacco Use Tobacco Use Status *Q: Never Tobacco User Second Hand Smoke Exposure: No - Caffeine Use Caffeine Use: Reports: Coffee - Recreational Drug Use Recreational Drug Use: No ED ROS GENERAL - Review of Systems Review Of Systems: Comprehensive ROS is negative, except as noted in HPI. ED EXAM, GENERAL - Physical Exam Exam: See Below Exam Limited By: No Limitations General Appearance: Alert, WD/WN, No Apparent Distress Eye Exam: Bilateral Eye: EOMI Ears: Normal External Exam Throat/Mouth: Normal Oropharynx Head: Atraumatic, Normocephalic Neck: Supple, Non-Tender Respiratory/Chest: No Respiratory Distress, Lungs Clear Cardiovascular: Normal Peripheral Pulses, Regular Rate, Rhythm Back Exam: Normal Inspection, Full Range of Motion Extremities: Normal Range of Motion, Non-Tender Neurological: Alert, Oriented, CN II-XII Intact Psychiatric: Normal Affect, Normal Mood Skin Exam: Warm, Dry, Intact Lymphatic: No Adenopathy Course - Vital Signs Last Recorded V/S: Last Vital Signs Temp 36.8 C 05/29/21 00:30 Pulse 88 05/29/21 00:30 Resp 18 05/29/21 00:30 BP 136/72 05/29/21 00:30 Pulse Ox 95 05/29/21 00:30 - Orders/Labs/Meds Labs: Laboratory Tests 05/28/21 05/29/21 Range/Units 21:40 00:35 Sodium 143 143 (135-145) mmol/L Potassium 2.7 L* 3.1 L (3.5-5.3) mmol/L Chloride 99 L D 101 (100-110) mmol/L Carbon Dioxide 31 31 (21-32) mmol/L BUN 19 H 17 (7-18) mg/dL Creatinine 1.3 H 1.2 H (0.55-1.02) mg/dL Est Cr Clr Drug Dosing 30.38 32.92 mL/min Estimated GFR (MDRD) 40 L 44 L (>60) BUN/Creatinine Ratio 14.6 14.2 (9-20) Glucose 85 91 (80-116) mg/dL Calcium 8.9 8.6 (8.6-10.2) mg/dL Total Bilirubin 0.3 (0.1-1.3) mg/dL AST 23 (5-25) IU/L ALT 26 (12-36) U/L Alkaline Phosphatase 93 (56-112) IU/L Total Protein 7.6 (6.0-8.0) g/dL Albumin 3.7 (3.2-4.6) g/dL Globulin 3.9 g/dL Albumin/Globulin Ratio 1.0 Meds: Medications Discontinued Medications Generic Name Dose Route Start Last Admin Trade Name Freq PRN Reason Stop Dose Admin Potassium Chloride 20 meq/ 100 mls @ 50 mls/hr 05/28/21 22:05 05/28/21 22:21 Premix IV 05/29/21 00:04 50 mls/hr ONETIME ONE Administration Sodium Chloride 250 mls @ 125 mls/hr 05/28/21 22:30 Normal Saline IV ASDIRECTED LUIS Potassium Chloride/Sodium Chloride 1,000 mls @ 150 mls/hr 05/28/21 23:45 Normal Saline With 20 Meq Kcl IV ASDIRECTED LUIS Potassium Chloride 40 meq 05/29/21 01:19 05/29/21 01:31 Potassium Chloride 20 Meq Tab.Er PO 05/29/21 01:20 40 meq ONETIME ONE Administration Departure - Departure Time of Disposition: 01:55 Disposition: Home, Self-Care 01 Condition: Fair Clinical Impression: Hypokalemia, Diarrhea, Unintentional weight loss - Discharge Information *PRESCRIPTION DRUG MONITORING PROGRAM REVIEWED*: Not Applicable *COPY OF PRESCRIPTION DRUG MONITORING REPORT IN PATIENT SUSANNAH: Not Applicable Prescriptions: Potassium Chloride 20 meq PO DAILY #10 tablet.er Instructions: Food Choices to Help Relieve Diarrhea, Adult Referrals: Torsten Washington PA [Primary Care Provider] - Forms: ED Department Discharge, ED Return to Work/School Form Additional Instructions: 1) Continue with work up as recommended by your PCP 2) Stop any laxatives , you may need to take Imodium if diarrhea persists 3) Take Probiotic it will help with diarrhea 4) Call with any concerns Sepsis Event Note (ED) - Evaluation Sepsis Screening Result: No Definite Risk - Focused Exam Vital Signs: Vital Signs Temp Pulse Resp BP Pulse Ox 05/29/21 00:30 36.8 C 88 18 136/72 95 05/28/21 21:37 36.8 C 85 18 157/95 H 95
[2021-05-29] MEDS ORDERED: Potassium Chloride 20 MEQ Tab.ER PO ONE (01:19)
[2021-05-29 02:00] VITALS: BP 136/72; PULSE 88
== END 2021-05-29 01:55 | disposition home or self-care (01) ==
LOC: FB.ED 21:16
DX: E87.6 Hypokalemia (principal); R19.7 Diarrhea, unspecified; R63.4 Abnormal weight loss; I10 Essential (primary) hypertension; Z88.8 Allergy status to other drugs, medicaments and biological substances; Z79.899 Other long term (current) drug therapy
CPT/HCPCS: 36415; 80048; 80053; 96365; 96366; 99284; A9270; J3480

== ENCOUNTER 2023-03-29 14:28 | Emergency (ER) | payer OTHER ==
[2023-03-29] MEDS ORDERED: Cephalexin 500 MG Cap PO ONE (16:45)
[2023-03-29] MEDS ORDERED: predniSONE 5 MG Tab PO STA (16:46)
[2023-03-29 17:29] VITALS: BP 129/81; PULSE 96
== END 2023-03-29 17:25 | disposition home or self-care (01) ==
LOC: FB.ED 14:28
DX: L03.116 Cellulitis of left lower limb (principal); L29.9 Pruritus, unspecified; R60.0 Localized edema; I10 Essential (primary) hypertension; Z88.8 Allergy status to other drugs, medicaments and biological substances; Z79.899 Other long term (current) drug therapy
CPT/HCPCS: 99282; A9270; J7512

== ENCOUNTER 2023-06-30 16:35 | Inpatient (IN) | payer OTHER, MEDICARE ==
[2023-06-30] MEDS ORDERED: Sodium Chloride 0.9% 10 ML Syringe FLUSH PRN (17:12)
[2023-06-30] MEDS ORDERED: Enoxaparin 30 MG/0.3 ML Syringe SUBCUT SCH (17:15)
[2023-06-30] MEDS ORDERED: diphenhydrAMINE 25 MG Cap PO PRN (17:21)
[2023-06-30] MEDS ORDERED: TAZOBACTAM IV SCH (17:30)
[2023-06-30] MEDS ORDERED: PIPERACILLIN IV SCH (17:30)
[2023-06-30] MEDS ORDERED: Piperacillin/Tazobactam 3.375 GM in Sodium Chloride 0.9% 50 ML IV SCH (18:00)
[2023-06-30] MEDS ORDERED: VANCOmycin 1 GM/200 ML 1 GM in Premix Bag 1 BAG IV SCH (18:00)
[2023-06-30 18:05] LABS: BASOPHILS ABSOLUTE AUTO 0.1 x10-3/uL (0.0-0.1); BASOPHILS PERCENT AUTO 0.8 % (0.2-1.5); EOSINOPHILS ABSOLUTE AUTO 0.2 x10-3/uL (0.0-0.8); EOSINOPHILS PERCENT AUTO 2.5 % (0.6-8.1); HEMATOCRIT 37.8 % (34.2-48.2); HEMOGLOBIN 11.7 g/dL (11.4-15.5); LYMPHOCYTES ABSOLUTE AUTO 0.8 x10-3/uL (1.0-4.4); LYMPHOCYTES PERCENT AUTO 8.5 % (18.4-52.1); MEAN CORPUSCULAR VOLUME 67.8 fL (76.7-100.5); MEAN PLATELET VOLUME 6.8 fL (7.1-12.4); MONOCYTES ABSOLUTE AUTO 0.4 x10-3/uL (0.3-1.0); MONOCYTES PERCENT AUTO 4.5 % (4.4-15.7); NEUTROPHILS ABSOLUTE AUTO 7.4 x10-3/uL (1.5-6.3); NEUTROPHILS PERCENT AUTO 83.7 % (30.8-76.2); PLATELET COUNT,PLT 688 x10(3)uL (151-488); RED BLOOD CELL COUNT 5.58 x10(6)uL (3.60-5.20); RED CELL DISTRIBUTION WIDTH 22.2 % (12.3-16.5); WHITE BLOOD CELL COUNT,WBC 8.8 x10-3/uL (3.0-10.3)
[2023-06-30 18:12] LABS: A/G RATIO 0.6; ALANINE AMINOTRANSFERASE,ALT 16 U/L (12-36); ALBUMIN 2.5 g/dL (3.2-4.6); ALKALINE PHOSPHATASE 129 IU/L (56-112); ASPARTATE AMNIOTRANSFERASE,AST 17 IU/L (5-25); BILIRUBIN TOTAL 0.2 mg/dL (0.1-1.3); BLOOD UREA NITROGEN,BUN 57 mg/dL (7-18); BUN/CREATININE RATIO 17.8 (9-20); CALCIUM 8.6 mg/dL (8.6-10.2); CARBON DIOXIDE,CO2 18 mmol/L (21-32); CHLORIDE,CL 98 mmol/L (100-110); ESTIMATED GFR 15 mL/min (>60); GLUCOSE RANDOM 83 mg/dL (80-116); POTASSIUM,K 3.9 mmol/L (3.5-5.3); PROTEIN TOTAL,TP 6.9 g/dL (6.0-8.0); SODIUM,NA 131 mmol/L (135-145)
[2023-06-30 18:26] LABS: CREATININE 3.2 mg/dL (0.55-1.02)
[2023-06-30] MEDS ORDERED: VANCOmycin 1 GM/200 ML 1 GM in Premix Bag 1 BAG IV ONE ×2 (19:30→21:00)
[2023-06-30] MEDS: Sodium Chloride 0.9% 1,000 ML IV SCH (19:50)
[2023-06-30] MEDS: Apixaban 5 MG Tab PO SCH (20:44)
[2023-06-30] MEDS: Metoprolol Tartrate 25 MG Tab PO SCH (20:44)
[2023-06-30] MEDS: Carboxymethylcellulose Sodium 0.5% Ophth Soln 15 ML Bottle EYEBOTH SCH (20:51)
[2023-06-30] MEDS ORDERED: Gabapentin 300 MG Cap PO SCH (21:00)
[2023-06-30] MEDS: Carboxymethylcellulose Sodium 1% Ophth Gel 15 ML Bottle EYELF SCH (21:02)
[2023-07-01] MEDS: Acetaminophen 325 MG Tab PO PRN ×4 (02:09→22:05)
[2023-07-01] MEDS: Piperacillin/Tazobactam 2.25 GM in Sodium Chloride 0.9% 50 ML IV SCH ×3 (04:00→20:08)
[2023-07-01] MEDS ORDERED: Piperacillin/Tazobactam 3.375 GM in Sodium Chloride 0.9% 50 ML IV SCH (04:00)
[2023-07-01] MEDS ORDERED: Pantoprazole 40 MG Tab.CR PO SCH (07:30)
[2023-07-01] MEDS ORDERED: Rosuvastatin 10 MG Tab PO SCH (09:00)
[2023-07-01] MEDS ORDERED: Cholestyramine/Sucrose Powder 4 GM Packet PO SCH (09:00)
[2023-07-01] MEDS ORDERED: ATOMOXETINE 40 MG PO SCH (09:00)
[2023-07-01] MEDS ORDERED: Ketotifen 0.025% Ophth Soln 5 ML Bottle EYEBOTH SCH (09:00)
[2023-07-01] MEDS ORDERED: Non-Formulary Medication 1 Each (Olopatadine [Pataday 0.2% Ophth Soln] 2.5 ML Bottle) EYEBOTH SCH (09:00)
[2023-07-01] MEDS ORDERED: Potassium Chloride 20 MEQ Tab.ER PO SCH (09:00)
[2023-07-01] MEDS ORDERED: Non-Formulary Medication 1 Each (Omeprazole [Omeprazole] 20 MG Cap.Cr) PO SCH (09:00)
[2023-07-01] MEDS ORDERED: Cholestyramine/Sucrose Powder 4 GM Packet PO PRN (09:47)
[2023-07-01] MEDS: Fluticasone NASAL Spray 16 GM Bottle NASBOTH SCH (10:01)
[2023-07-01] MEDS: Non-Formulary Medication 1 Each (Ammonium Lactate [Lac-Hydrin 12% Crm] 140 GM Tube) TOP SCH (10:02)
[2023-07-01] MEDS: buPROPion 150 MG Tab.ER PO SCH (10:02)
[2023-07-01] MEDS: Sertraline 50 MG Tab PO SCH (10:02)
[2023-07-01] MEDS: Cyanocobalamin (Vitamin B12) 1,000 MCG Tab PO SCH (10:03)
[2023-07-01] MEDS: Rosuvastatin 5 MG Tab PO SCH (10:03)
[2023-07-01] MEDS: Multivitamins with Iron/Calcium/Folic Acid/Minerals Tab PO SCH (10:04)
[2023-07-01] MEDS: Oxybutynin 5 MG Tab.ER PO SCH (10:05)
[2023-07-01] MEDS: Calcium Carbonate 500 MG Tablet PO SCH (10:05)
[2023-07-01] MEDS: Apixaban 5 MG Tab PO SCH ×2 (10:05→21:04)
[2023-07-01] MEDS: Ferrous Sulfate 325 MG Tab PO SCH (10:05)
[2023-07-01] MEDS: Cholecalciferol (Vitamin D3) 25 MCG Tab PO SCH (10:05)
[2023-07-01] MEDS: Spironolactone 25 MG Tab PO SCH (10:07)
[2023-07-01] MEDS: Clobetasol 0.05% Crm 15 GM Tube TOP SCH ×3 (10:13→21:16)
[2023-07-01] MEDS ORDERED: Metoprolol Tartrate 25 MG Tab PO ONE (10:14)
[2023-07-01] MEDS: Losartan 100 MG Tab PO SCH (10:14)
[2023-07-01] MEDS: Carboxymethylcellulose Sodium 0.5% Ophth Soln 15 ML Bottle EYEBOTH SCH ×3 (10:15→21:05)
[2023-07-01] MEDS: Metoprolol Tartrate 25 MG Tab PO SCH ×2 (10:15→21:04)
[2023-07-01] MEDS: Cetirizine 10 MG Tab PO SCH (10:19)
[2023-07-01] MEDS: Gabapentin 300 MG Cap PO SCH (10:26)
[2023-07-01] MEDS: Sodium Chloride 0.9% 1,000 ML IV SCH (12:13)
[2023-07-01] MEDS: Ondansetron 4 MG Tab.DIS PO PRN (12:39)
[2023-07-01] MEDS ORDERED: ARMODAFINIL 250 MG PO SCH (16:00)
[2023-07-01] MEDS: Acetaminophen/Codeine 300-30 MG Tab PO PRN (17:55)
[2023-07-01] MEDS: Carboxymethylcellulose Sodium 1% Ophth Gel 15 ML Bottle EYELF SCH (21:04)
[2023-07-02] MEDS: Acetaminophen/Codeine 300-30 MG Tab PO PRN ×3 (00:18→16:17)
[2023-07-02] MEDS: Piperacillin/Tazobactam 2.25 GM in Sodium Chloride 0.9% 50 ML IV SCH ×5 (03:37→23:17)
[2023-07-02] MEDS: Sodium Chloride 0.9% 1,000 ML IV SCH ×3 (03:42→21:19)
[2023-07-02] MEDS: Pantoprazole 40 MG Tab.CR PO SCH (05:06)
[2023-07-02 06:45] LABS: BASOPHILS ABSOLUTE AUTO 0.1 x10-3/uL (0.0-0.1); BASOPHILS PERCENT AUTO 1.2 % (0.2-1.5); EOSINOPHILS ABSOLUTE AUTO 1.3 x10-3/uL (0.0-0.8); EOSINOPHILS PERCENT AUTO 12.3 % (0.6-8.1); HEMATOCRIT 34.6 % (34.2-48.2); HEMOGLOBIN 10.7 g/dL (11.4-15.5); LYMPHOCYTES ABSOLUTE AUTO 0.7 x10-3/uL (1.0-4.4); MEAN CORPUSCULAR HEMOGLOBIN 21.1 pg (23.9-33.9); MEAN CORPUSCULAR HGB CONC 30.8 g/dL (31.9-34.8); MEAN CORPUSCULAR VOLUME 68.4 fL (76.7-100.5); MEAN PLATELET VOLUME 6.5 fL (7.1-12.4); MONOCYTES ABSOLUTE AUTO 0.7 x10-3/uL (0.3-1.0); NEUTROPHILS ABSOLUTE AUTO 7.7 x10-3/uL (1.5-6.3); NEUTROPHILS PERCENT AUTO 72.5 % (30.8-76.2); PLATELET COUNT,PLT 629 x10(3)uL (151-488); RED CELL DISTRIBUTION WIDTH 21.9 % (12.3-16.5); WHITE BLOOD CELL COUNT,WBC 10.6 x10-3/uL (3.0-10.3)
[2023-07-02 06:52] LABS: BLOOD UREA NITROGEN,BUN 53 mg/dL (7-18); BUN/CREATININE RATIO 16.6 (9-20); CARBON DIOXIDE,CO2 20 mmol/L (21-32); CHLORIDE,CL 101 mmol/L (100-110); EST CRCL DRUG DOSING (CG) 11.41 mL/min; ESTIMATED GFR 15 mL/min (>60); GLUCOSE RANDOM 88 mg/dL (80-116); POTASSIUM,K 3.7 mmol/L (3.5-5.3); SODIUM,NA 134 mmol/L (135-145)
[2023-07-02 06:56] LABS: CREATININE 3.2 mg/dL (0.55-1.02)
[2023-07-02 07:10] LABS: RED BLOOD CELL COUNT 5.06 x10(6)uL (3.60-5.20)
[2023-07-02] MEDS: Fluticasone NASAL Spray 16 GM Bottle NASBOTH SCH (09:29)
[2023-07-02] MEDS: Multivitamins with Iron/Calcium/Folic Acid/Minerals Tab PO SCH (09:29)
[2023-07-02] MEDS: Cyanocobalamin (Vitamin B12) 1,000 MCG Tab PO SCH (09:30)
[2023-07-02] MEDS: Cholecalciferol (Vitamin D3) 25 MCG Tab PO SCH (09:30)
[2023-07-02] MEDS: Sertraline 50 MG Tab PO SCH (09:30)
[2023-07-02] MEDS: Calcium Carbonate 500 MG Tablet PO SCH (09:30)
[2023-07-02] MEDS: buPROPion 150 MG Tab.ER PO SCH (09:30)
[2023-07-02] MEDS: Carboxymethylcellulose Sodium 0.5% Ophth Soln 15 ML Bottle EYEBOTH SCH ×3 (09:30→20:24)
[2023-07-02] MEDS: Metoprolol Tartrate 25 MG Tab PO SCH ×3 (09:31→20:27)
[2023-07-02] MEDS: Rosuvastatin 5 MG Tab PO SCH (09:31)
[2023-07-02] MEDS: Apixaban 5 MG Tab PO SCH ×2 (09:31→20:26)
[2023-07-02] MEDS: Ferrous Sulfate 325 MG Tab PO SCH (09:31)
[2023-07-02] MEDS: Spironolactone 25 MG Tab PO SCH (09:31)
[2023-07-02] MEDS: Oxybutynin 5 MG Tab.ER PO SCH (09:31)
[2023-07-02] MEDS: Clobetasol 0.05% Crm 15 GM Tube TOP SCH ×2 (09:32→20:23)
[2023-07-02] MEDS: Cetirizine 10 MG Tab PO SCH (09:36)
[2023-07-02] MEDS: Gabapentin 300 MG Cap PO SCH (09:48)
[2023-07-02] MEDS: Losartan 100 MG Tab PO SCH (09:53)
[2023-07-02] MEDS: ARMODAFINIL 250 MG PO SCH (10:32)
[2023-07-02] MEDS: Acetaminophen 325 MG Tab PO PRN ×2 (14:59→20:25)
[2023-07-02] MEDS: Carboxymethylcellulose Sodium 1% Ophth Gel 15 ML Bottle EYELF SCH (20:24)
[2023-07-03] MEDS: Pantoprazole 40 MG Tab.CR PO SCH (06:09)
[2023-07-03 06:32] LABS: HEMOGLOBIN 10.3 g/dL (11.4-15.5); MEAN CORPUSCULAR HEMOGLOBIN 21.2 pg (23.9-33.9); MEAN CORPUSCULAR HGB CONC 31.1 g/dL (31.9-34.8); MEAN CORPUSCULAR VOLUME 68.1 fL (76.7-100.5); MEAN PLATELET VOLUME 6.2 fL (7.1-12.4); PLATELET COUNT,PLT 650 x10(3)uL (151-488); RED BLOOD CELL COUNT 4.84 x10(6)uL (3.60-5.20); RED CELL DISTRIBUTION WIDTH 22.1 % (12.3-16.5); WHITE BLOOD CELL COUNT,WBC 9.6 x10-3/uL (3.0-10.3)
[2023-07-03 06:40] LABS: BLOOD UREA NITROGEN,BUN 47 mg/dL (7-18); BUN/CREATININE RATIO 17.4 (9-20); CALCIUM 7.7 mg/dL (8.6-10.2); CARBON DIOXIDE,CO2 18 mmol/L (21-32); CHLORIDE,CL 105 mmol/L (100-110); EST CRCL DRUG DOSING (CG) 13.53 mL/min; ESTIMATED GFR 18 mL/min (>60); GLUCOSE RANDOM 78 mg/dL (80-116); POTASSIUM,K 3.2 mmol/L (3.5-5.3); SODIUM,NA 136 mmol/L (135-145)
[2023-07-03 06:43] LABS: CREATININE 2.7 mg/dL (0.55-1.02)
[2023-07-03 06:52] LABS: BAND PERCENT MAN 5 % (0-6); EOSINOPHILS PERCENT MAN 8 % (0-5); LYMPHOCYTES PERCENT MAN 12 % (13-37); MONOCYTES PERCENT MAN 9 % (4-12); SEG NEUTROPHILS PERCENT MAN 66 % (46-82)
[2023-07-03] MEDS: Piperacillin/Tazobactam 2.25 GM in Sodium Chloride 0.9% 50 ML IV SCH (06:59)
[2023-07-03] MEDS: Acetaminophen/Codeine 300-30 MG Tab PO PRN ×2 (07:40→16:07)
[2023-07-03] MEDS ORDERED: Potassium Chloride 20 MEQ Tab.ER PO ONE (08:51)
[2023-07-03] MEDS: Metoprolol Tartrate 25 MG Tab PO SCH (09:25)
[2023-07-03] MEDS: Gabapentin 300 MG Cap PO SCH (10:21)
[2023-07-03] MEDS: Clobetasol 0.05% Crm 15 GM Tube TOP SCH ×2 (10:22→21:53)
[2023-07-03] MEDS: Multivitamins with Iron/Calcium/Folic Acid/Minerals Tab PO SCH (10:23)
[2023-07-03] MEDS: Rosuvastatin 5 MG Tab PO SCH (10:24)
[2023-07-03] MEDS: Oxybutynin 5 MG Tab.ER PO SCH (10:24)
[2023-07-03] MEDS: Ferrous Sulfate 325 MG Tab PO SCH (10:24)
[2023-07-03] MEDS: Fluticasone NASAL Spray 16 GM Bottle NASBOTH SCH (10:24)
[2023-07-03] MEDS: Carboxymethylcellulose Sodium 0.5% Ophth Soln 15 ML Bottle EYEBOTH SCH ×3 (10:25→21:56)
[2023-07-03] MEDS: Cholecalciferol (Vitamin D3) 25 MCG Tab PO SCH (10:25)
[2023-07-03] MEDS: Calcium Carbonate 500 MG Tablet PO SCH (10:25)
[2023-07-03] MEDS: Cyanocobalamin (Vitamin B12) 1,000 MCG Tab PO SCH (10:25)
[2023-07-03] MEDS: buPROPion 150 MG Tab.ER PO SCH (10:25)
[2023-07-03] MEDS: Cetirizine 10 MG Tab PO SCH (10:26)
[2023-07-03] MEDS: Sertraline 50 MG Tab PO SCH (10:26)
[2023-07-03] MEDS: Apixaban 5 MG Tab PO SCH (10:51)
[2023-07-03] MEDS: Apixaban 2.5 MG Tab PO SCH ×2 (10:52→22:36)
[2023-07-03] MEDS: Ondansetron 4 MG Tab.DIS PO PRN (11:32)
[2023-07-03] MEDS: Sodium Chloride 0.9% 1,000 ML IV SCH (14:25)
[2023-07-03] MEDS ORDERED: hydrOXYzine HCl 25 MG Tab PO PRN (17:50)
[2023-07-03] MEDS: Acetaminophen 325 MG Tab PO PRN (20:06)
[2023-07-03] MEDS: Amoxicillin/Clavulanate K 250-125 MG Tab PO SCH (21:53)
[2023-07-03] MEDS: Carboxymethylcellulose Sodium 1% Ophth Gel 15 ML Bottle EYELF SCH (21:56)
[2023-07-03] MEDS: Acyclovir 400 MG Tab PO SCH (23:50)
[2023-07-04] MEDS: Sodium Chloride 0.9% 1,000 ML IV SCH (04:54)
[2023-07-04] MEDS: Acetaminophen 325 MG Tab PO PRN ×2 (05:38→20:57)
[2023-07-04] MEDS: Pantoprazole 40 MG Tab.CR PO SCH (06:07)
[2023-07-04 06:45] LABS: BASOPHILS ABSOLUTE AUTO 0.1 x10-3/uL (0.0-0.1); BASOPHILS PERCENT AUTO 1.1 % (0.2-1.5); EOSINOPHILS ABSOLUTE AUTO 0.4 x10-3/uL (0.0-0.8); EOSINOPHILS PERCENT AUTO 4.7 % (0.6-8.1); HEMATOCRIT 29.6 % (34.2-48.2); HEMOGLOBIN 9.2 g/dL (11.4-15.5); LYMPHOCYTES ABSOLUTE AUTO 0.6 x10-3/uL (1.0-4.4); LYMPHOCYTES PERCENT AUTO 8.1 % (18.4-52.1); MEAN CORPUSCULAR HEMOGLOBIN 21.2 pg (23.9-33.9); MEAN CORPUSCULAR HGB CONC 31.2 g/dL (31.9-34.8); MEAN CORPUSCULAR VOLUME 67.9 fL (76.7-100.5); MEAN PLATELET VOLUME 6.1 fL (7.1-12.4); MONOCYTES ABSOLUTE AUTO 0.6 x10-3/uL (0.3-1.0); MONOCYTES PERCENT AUTO 8.2 % (4.4-15.7); NEUTROPHILS ABSOLUTE AUTO 5.9 x10-3/uL (1.5-6.3); NEUTROPHILS PERCENT AUTO 77.9 % (30.8-76.2); PLATELET COUNT,PLT 545 x10(3)uL (151-488); RED BLOOD CELL COUNT 4.37 x10(6)uL (3.60-5.20); RED CELL DISTRIBUTION WIDTH 22.2 % (12.3-16.5); WHITE BLOOD CELL COUNT,WBC 7.6 x10-3/uL (3.0-10.3)
[2023-07-04 06:54] LABS: BLOOD UREA NITROGEN,BUN 36 mg/dL (7-18); CALCIUM 7.4 mg/dL (8.6-10.2); CARBON DIOXIDE,CO2 18 mmol/L (21-32); CHLORIDE,CL 104 mmol/L (100-110); EST CRCL DRUG DOSING (CG) 18.26 mL/min; ESTIMATED GFR 26 mL/min (>60); GLUCOSE RANDOM 82 mg/dL (80-116); POTASSIUM,K 3.2 mmol/L (3.5-5.3); SODIUM,NA 133 mmol/L (135-145)
[2023-07-04 08:46] LABS: BILIRUBIN,URINE NEGATIVE (NEGATIVE); GLUCOSE,URINE NORMAL (NORMAL); KETONES,URINE 15 mg/dL (NEGATIVE); LEUKOCYTE ESTERASE,URINE MODERATE (NEGATIVE); NITRITE,URINE NEGATIVE (NEGATIVE); OCCULT BLOOD,URINE NEGATIVE (NEGATIVE); PROTEIN,URINE NEGATIVE (NEGATIVE); UROBILINOGEN,URINE NORMAL (NEGATIVE)
[2023-07-04 08:56] LABS: APPEARANCE,URINE SLIGHTLY CLOUDY (CLEAR); COLOR,URINE YELLOW (YELLOW)
[2023-07-04 08:57] LABS: BACTERIA,URINE MODERATE (NS); SQUAMOUS EPITHELIAL CELLS,UR FEW (NS,R,O); YEAST,URINE FEW (NS)
[2023-07-04] MEDS ORDERED: Potassium Chloride 20 MEQ Tab.ER PO ONE (09:33)
[2023-07-04] MEDS: Oxybutynin 5 MG Tab.ER PO SCH (09:38)
[2023-07-04] MEDS: Sertraline 50 MG Tab PO SCH (09:38)
[2023-07-04] MEDS: Cholecalciferol (Vitamin D3) 25 MCG Tab PO SCH (09:39)
[2023-07-04] MEDS: Calcium Carbonate 500 MG Tablet PO SCH (09:39)
[2023-07-04] MEDS: Carboxymethylcellulose Sodium 0.5% Ophth Soln 15 ML Bottle EYEBOTH SCH ×3 (09:39→21:05)
[2023-07-04] MEDS: Cyanocobalamin (Vitamin B12) 1,000 MCG Tab PO SCH (09:39)
[2023-07-04] MEDS: Cetirizine 10 MG Tab PO SCH (09:39)
[2023-07-04] MEDS: Ferrous Sulfate 325 MG Tab PO SCH (09:39)
[2023-07-04] MEDS: Amoxicillin/Clavulanate K 250-125 MG Tab PO SCH ×2 (09:39→21:04)
[2023-07-04] MEDS: Rosuvastatin 10 MG Tab PO SCH (09:40)
[2023-07-04] MEDS: Clobetasol 0.05% Crm 15 GM Tube TOP SCH ×2 (09:41→21:04)
[2023-07-04] MEDS: Fluticasone NASAL Spray 16 GM Bottle NASBOTH SCH (09:41)
[2023-07-04] MEDS: Acyclovir 400 MG Tab PO SCH ×3 (09:42→21:05)
[2023-07-04] MEDS: Multivitamins with Iron/Calcium/Folic Acid/Minerals Tab PO SCH (09:42)
[2023-07-04] MEDS: buPROPion 150 MG Tab.ER PO SCH (09:42)
[2023-07-04] MEDS: Gabapentin 300 MG Cap PO SCH (09:48)
[2023-07-04] MEDS: Apixaban 2.5 MG Tab PO SCH ×2 (09:48→21:04)
[2023-07-04] MEDS: Metoprolol Tartrate 25 MG Tab PO SCH (09:48)
[2023-07-04] MEDS: predniSONE 20 MG Tab PO SCH (09:48)
[2023-07-04] MEDS: Acetaminophen/HYDROcodone 325-5 MG Tab PO PRN (10:50)
[2023-07-04] MEDS: Carboxymethylcellulose Sodium 1% Ophth Gel 15 ML Bottle EYELF SCH (21:05)
[2023-07-05] MEDS: Acetaminophen 325 MG Tab PO PRN ×3 (01:20→20:46)
[2023-07-05] MEDS: Pantoprazole 40 MG Tab.CR PO SCH (05:54)
[2023-07-05 06:50] LABS: BASOPHILS PERCENT AUTO 0.2 % (0.2-1.5); EOSINOPHILS PERCENT AUTO 0.4 % (0.6-8.1); HEMATOCRIT 31.2 % (34.2-48.2); HEMOGLOBIN 9.9 g/dL (11.4-15.5); LYMPHOCYTES ABSOLUTE AUTO 0.6 x10-3/uL (1.0-4.4); LYMPHOCYTES PERCENT AUTO 7.8 % (18.4-52.1); MEAN CORPUSCULAR HEMOGLOBIN 21.4 pg (23.9-33.9); MEAN CORPUSCULAR HGB CONC 31.6 g/dL (31.9-34.8); MEAN CORPUSCULAR VOLUME 67.6 fL (76.7-100.5); MEAN PLATELET VOLUME 6.5 fL (7.1-12.4); MONOCYTES ABSOLUTE AUTO 0.6 x10-3/uL (0.3-1.0); MONOCYTES PERCENT AUTO 8.1 % (4.4-15.7); NEUTROPHILS ABSOLUTE AUTO 6.3 x10-3/uL (1.5-6.3); NEUTROPHILS PERCENT AUTO 83.5 % (30.8-76.2); PLATELET COUNT,PLT 542 x10(3)uL (151-488); RED BLOOD CELL COUNT 4.62 x10(6)uL (3.60-5.20); RED CELL DISTRIBUTION WIDTH 22.3 % (12.3-16.5); WHITE BLOOD CELL COUNT,WBC 7.5 x10-3/uL (3.0-10.3)
[2023-07-05 06:52] LABS: BLOOD UREA NITROGEN,BUN 32 mg/dL (7-18); BUN/CREATININE RATIO 17.8 (9-20); CARBON DIOXIDE,CO2 19 mmol/L (21-32); CHLORIDE,CL 104 mmol/L (100-110); CREATININE 1.8 mg/dL (0.55-1.02); EST CRCL DRUG DOSING (CG) 20.29 mL/min; ESTIMATED GFR 30 mL/min (>60); GLUCOSE RANDOM 101 mg/dL (80-116); POTASSIUM,K 3.7 mmol/L (3.5-5.3); SODIUM,NA 132 mmol/L (135-145)
[2023-07-05] MEDS ORDERED: Sertraline 50 MG Tab PO SCH (09:00)
[2023-07-05] MEDS: Oxybutynin 5 MG Tab.ER PO SCH (09:10)
[2023-07-05] MEDS: Gabapentin 100 MG Cap PO SCH (09:10)
[2023-07-05] MEDS: predniSONE 20 MG Tab PO SCH (09:10)
[2023-07-05] MEDS: Cyanocobalamin (Vitamin B12) 1,000 MCG Tab PO SCH (09:11)
[2023-07-05] MEDS: Apixaban 2.5 MG Tab PO SCH ×2 (09:11→20:32)
[2023-07-05] MEDS: Cholecalciferol (Vitamin D3) 25 MCG Tab PO SCH (09:12)
[2023-07-05] MEDS: Ferrous Sulfate 325 MG Tab PO SCH (09:12)
[2023-07-05] MEDS: Fluticasone NASAL Spray 16 GM Bottle NASBOTH SCH (09:13)
[2023-07-05] MEDS: Clobetasol 0.05% Crm 15 GM Tube TOP SCH ×2 (09:13→20:31)
[2023-07-05] MEDS: Multivitamins with Iron/Calcium/Folic Acid/Minerals Tab PO SCH (09:13)
[2023-07-05] MEDS: Cetirizine 10 MG Tab PO SCH (09:13)
[2023-07-05] MEDS: Calcium Carbonate 500 MG Tablet PO SCH (09:13)
[2023-07-05] MEDS: Rosuvastatin 10 MG Tab PO SCH (09:13)
[2023-07-05] MEDS: Amoxicillin/Clavulanate K 250-125 MG Tab PO SCH ×2 (09:13→20:31)
[2023-07-05] MEDS: buPROPion 150 MG Tab.ER PO SCH (09:14)
[2023-07-05] MEDS: Carboxymethylcellulose Sodium 0.5% Ophth Soln 15 ML Bottle EYEBOTH SCH ×3 (09:14→20:32)
[2023-07-05] MEDS: Acyclovir 400 MG Tab PO SCH ×3 (09:14→20:46)
[2023-07-05] MEDS: Acetaminophen/Codeine 300-30 MG Tab PO PRN (13:01)
[2023-07-05] MEDS: Carboxymethylcellulose Sodium 1% Ophth Gel 15 ML Bottle EYELF SCH (20:32)
[2023-07-06] MEDS: Acetaminophen/Codeine 300-30 MG Tab PO PRN ×2 (00:22→10:34)
[2023-07-06] MEDS: Pantoprazole 40 MG Tab.CR PO SCH (06:09)
[2023-07-06 08:50] LABS: HEMATOCRIT 28.6 % (34.2-48.2); HEMOGLOBIN 9.2 g/dL (11.4-15.5); MEAN CORPUSCULAR HEMOGLOBIN 21.6 pg (23.9-33.9); MEAN CORPUSCULAR HGB CONC 32.2 g/dL (31.9-34.8); MEAN CORPUSCULAR VOLUME 67.2 fL (76.7-100.5); MEAN PLATELET VOLUME 6.2 fL (7.1-12.4); PLATELET COUNT,PLT 516 x10(3)uL (151-488); RED BLOOD CELL COUNT 4.26 x10(6)uL (3.60-5.20); RED CELL DISTRIBUTION WIDTH 22.1 % (12.3-16.5); WHITE BLOOD CELL COUNT,WBC 7.7 x10-3/uL (3.0-10.3)
[2023-07-06 08:53] LABS: BLOOD UREA NITROGEN,BUN 29 mg/dL (7-18); BUN/CREATININE RATIO 18.1 (9-20); CALCIUM 7.9 mg/dL (8.6-10.2); CARBON DIOXIDE,CO2 20 mmol/L (21-32); CHLORIDE,CL 102 mmol/L (100-110); CREATININE 1.6 mg/dL (0.55-1.02); EST CRCL DRUG DOSING (CG) 22.83 mL/min; ESTIMATED GFR 34 mL/min (>60); GLUCOSE RANDOM 106 mg/dL (80-116); POTASSIUM,K 3.5 mmol/L (3.5-5.3); SODIUM,NA 129 mmol/L (135-145)
[2023-07-06 09:09] LABS: LYMPHOCYTES PERCENT MAN 14 % (13-37); MONOCYTES PERCENT MAN 4 % (4-12); SEG NEUTROPHILS PERCENT MAN 84 % (46-82)
[2023-07-06] MEDS: Amoxicillin/Clavulanate K 250-125 MG Tab PO SCH ×2 (10:08→20:28)
[2023-07-06] MEDS: Multivitamins with Iron/Calcium/Folic Acid/Minerals Tab PO SCH (10:12)
[2023-07-06] MEDS: Cholecalciferol (Vitamin D3) 25 MCG Tab PO SCH (10:12)
[2023-07-06] MEDS: Rosuvastatin 10 MG Tab PO SCH (10:13)
[2023-07-06] MEDS: Apixaban 2.5 MG Tab PO SCH ×2 (10:13→20:29)
[2023-07-06] MEDS: Calcium Carbonate 500 MG Tablet PO SCH (10:14)
[2023-07-06] MEDS: buPROPion 150 MG Tab.ER PO SCH (10:15)
[2023-07-06] MEDS: Cetirizine 10 MG Tab PO SCH (10:15)
[2023-07-06] MEDS: Oxybutynin 5 MG Tab.ER PO SCH (10:15)
[2023-07-06] MEDS: Clobetasol 0.05% Crm 15 GM Tube TOP SCH ×2 (10:16→20:29)
[2023-07-06] MEDS: Acyclovir 400 MG Tab PO SCH ×3 (10:17→20:30)
[2023-07-06] MEDS: Carboxymethylcellulose Sodium 0.5% Ophth Soln 15 ML Bottle EYEBOTH SCH ×3 (10:19→20:30)
[2023-07-06] MEDS: Fluticasone NASAL Spray 16 GM Bottle NASBOTH SCH (10:20)
[2023-07-06] MEDS: predniSONE 20 MG Tab PO SCH (10:32)
[2023-07-06] MEDS: Gabapentin 100 MG Cap PO SCH (10:33)
[2023-07-06] MEDS: Ferrous Sulfate 325 MG Tab PO SCH (10:33)
[2023-07-06] MEDS: Cyanocobalamin (Vitamin B12) 1,000 MCG Tab PO SCH (10:34)
[2023-07-06] MEDS: Sertraline 100 MG, Sertraline 25 MG PO SCH ×2 (10:34)
[2023-07-06] MEDS: Acetaminophen/HYDROcodone 325-5 MG Tab PO PRN (15:48)
[2023-07-06] MEDS: Carboxymethylcellulose Sodium 1% Ophth Gel 15 ML Bottle EYELF SCH (20:30)
[2023-07-06] MEDS: Acetaminophen 325 MG Tab PO PRN (20:34)
[2023-07-07] MEDS: Acetaminophen 325 MG Tab PO PRN (01:35)
[2023-07-07] MEDS: Pantoprazole 40 MG Tab.CR PO SCH (06:14)
[2023-07-07 06:26] LABS: HEMATOCRIT 31.6 % (34.2-48.2); HEMOGLOBIN 9.8 g/dL (11.4-15.5); MEAN CORPUSCULAR HEMOGLOBIN 21.4 pg (23.9-33.9); MEAN CORPUSCULAR HGB CONC 31.2 g/dL (31.9-34.8); MEAN CORPUSCULAR VOLUME 68.6 fL (76.7-100.5); MEAN PLATELET VOLUME 6.3 fL (7.1-12.4); PLATELET COUNT,PLT 572 x10(3)uL (151-488); RED BLOOD CELL COUNT 4.61 x10(6)uL (3.60-5.20); RED CELL DISTRIBUTION WIDTH 22.5 % (12.3-16.5); WHITE BLOOD CELL COUNT,WBC 9.4 x10-3/uL (3.0-10.3)
[2023-07-07 06:31] LABS: BLOOD UREA NITROGEN,BUN 28 mg/dL (7-18); BUN/CREATININE RATIO 17.5 (9-20); CALCIUM 8.1 mg/dL (8.6-10.2); CARBON DIOXIDE,CO2 21 mmol/L (21-32); CHLORIDE,CL 104 mmol/L (100-110); CREATININE 1.6 mg/dL (0.55-1.02); EST CRCL DRUG DOSING (CG) 22.83 mL/min; ESTIMATED GFR 34 mL/min (>60); GLUCOSE RANDOM 99 mg/dL (80-116); SODIUM,NA 133 mmol/L (135-145)
[2023-07-07 06:53] LABS: LYMPHOCYTES PERCENT MAN 6 % (13-37); MONOCYTES PERCENT MAN 5 % (4-12); SEG NEUTROPHILS PERCENT MAN 89 % (46-82)
[2023-07-07 06:58] LABS: ANISOCYTOSIS FEW; POIKILOCYTOSIS FEW
[2023-07-07] MEDS: predniSONE 20 MG Tab PO SCH (08:12)
[2023-07-07] MEDS: Amoxicillin/Clavulanate K 250-125 MG Tab PO SCH (08:13)
[2023-07-07] MEDS: Clobetasol 0.05% Crm 15 GM Tube TOP SCH (08:14)
[2023-07-07] MEDS: Apixaban 2.5 MG Tab PO SCH (08:15)
[2023-07-07] MEDS: Rosuvastatin 10 MG Tab PO SCH (08:15)
[2023-07-07] MEDS: Fluticasone NASAL Spray 16 GM Bottle NASBOTH SCH (08:16)
[2023-07-07] MEDS: Ferrous Sulfate 325 MG Tab PO SCH (08:16)
[2023-07-07] MEDS: Carboxymethylcellulose Sodium 0.5% Ophth Soln 15 ML Bottle EYEBOTH SCH (08:17)
[2023-07-07] MEDS: Cyanocobalamin (Vitamin B12) 1,000 MCG Tab PO SCH (08:17)
[2023-07-07] MEDS: Calcium Carbonate 500 MG Tablet PO SCH (08:17)
[2023-07-07] MEDS: Multivitamins with Iron/Calcium/Folic Acid/Minerals Tab PO SCH (08:18)
[2023-07-07] MEDS: Cholecalciferol (Vitamin D3) 25 MCG Tab PO SCH (08:18)
[2023-07-07] MEDS: Oxybutynin 5 MG Tab.ER PO SCH (08:18)
[2023-07-07] MEDS: Sertraline 100 MG, Sertraline 25 MG PO SCH ×2 (08:19)
[2023-07-07] MEDS: Acyclovir 400 MG Tab PO SCH (08:20)
[2023-07-07] MEDS: buPROPion 150 MG Tab.ER PO SCH (08:20)
[2023-07-07] MEDS: Cetirizine 10 MG Tab PO SCH (08:21)
[2023-07-07] MEDS: Gabapentin 100 MG Cap PO SCH (08:26)
[2023-07-07 10:40] VITALS: BP 144/97; PULSE 94
[2023-07-07] MEDS ORDERED: ARMODAFINIL 250 MG PO SCH (16:00)
[2023-07-07] MEDS ORDERED: Diclofenac Sodium 1% Gel 100 GM Tube TOP SCH (17:00)
== END 2023-07-07 10:45 | disposition swing bed (61) | DRG 603 ==
LOC: FB.MS 17:11
PROVIDERS: ADMIT Family Medicine; ATTEND Family Medicine
DX: L03.115 Cellulitis of right lower limb (principal); I13.0 Hypertensive heart and chronic kidney disease with heart failure and stage 1 through stage 4 chronic kidney disease, or unspecified chronic kidney disease; I50.32 Chronic diastolic (congestive) heart failure; N17.9 Acute kidney failure, unspecified; N18.4 Chronic kidney disease, stage 4 (severe); E87.1 Hypo-osmolality and hyponatremia; G93.40 Encephalopathy, unspecified; R53.1 Weakness; Z51.5 Encounter for palliative care; Z66 Do not resuscitate; I95.2 Hypotension due to drugs; I27.20 Pulmonary hypertension, unspecified; G51.0 Bell's palsy; L03.116 Cellulitis of left lower limb; K21.9 Gastro-esophageal reflux disease without esophagitis; M81.0 Age-related osteoporosis without current pathological fracture; E78.5 Hyperlipidemia, unspecified; I25.10 Atherosclerotic heart disease of native coronary artery without angina pectoris; I48.0 Paroxysmal atrial fibrillation; F32.A Depression, unspecified; F41.9 Anxiety disorder, unspecified; R19.7 Diarrhea, unspecified; I89.0 Lymphedema, not elsewhere classified; D63.1 Anemia in chronic kidney disease; D50.9 Iron deficiency anemia, unspecified; L29.9 Pruritus, unspecified; E87.6 Hypokalemia; T44.7X5A Adverse effect of beta-adrenoreceptor antagonists, initial encounter; H02.402 Unspecified ptosis of left eyelid; I87.2 Venous insufficiency (chronic) (peripheral); Z90.710 Acquired absence of both cervix and uterus; Z86.73 Personal history of transient ischemic attack (TIA), and cerebral infarction without residual deficits; Z85.828 Personal history of other malignant neoplasm of skin; Z90.49 Acquired absence of other specified parts of digestive tract; Z98.890 Other specified postprocedural states; Z88.8 Allergy status to other drugs, medicaments and biological substances; Z79.01 Long term (current) use of anticoagulants; Z79.899 Other long term (current) drug therapy; Z96.659 Presence of unspecified artificial knee joint; Z90.89 Acquired absence of other organs
CPT/HCPCS: 36415; 70450; 80048; 80053; 80202; 81001; 82570; 82947; 83880; 84300; 84443; 85025; 86140; 87040; 87086; 97110-GO; 97116-GP; 97162-GP; 97165-GO; 97530-GO; 97530-GP; 97535-GO; 99223; 99232; 99233; 99238; A9270-GY; J2543; J3370; J3490; J7030; J7512; Q0162

== ENCOUNTER 2023-07-07 10:45 | Inpatient (IN) | payer OTHER, MEDICARE ==
[2023-07-07] MEDS ORDERED: Ondansetron 4 MG Tab.DIS PO PRN (11:09)
[2023-07-07] MEDS ORDERED: Polyethylene Glycol 3350 Powder 17 GM Packet PO PRN (11:09)
[2023-07-07] MEDS ORDERED: Cholestyramine/Sucrose Powder 4 GM Packet PO PRN (14:53)
[2023-07-07] MEDS: Diclofenac Sodium 1% Gel 100 GM Tube TOP SCH ×2 (18:56→21:42)
[2023-07-07] MEDS: Amoxicillin/Clavulanate K 250-125 MG Tab PO SCH (21:41)
[2023-07-07] MEDS: Clobetasol 0.05% Crm 15 GM Tube TOP SCH (21:42)
[2023-07-07] MEDS: Apixaban 5 MG Tab PO SCH (21:42)
[2023-07-07] MEDS: Carboxymethylcellulose Sodium 1% Ophth Gel 15 ML Bottle EYELF SCH (21:43)
[2023-07-07] MEDS: Carboxymethylcellulose Sodium 0.5% Ophth Soln 15 ML Bottle EYEBOTH SCH (21:43)
[2023-07-07] MEDS: Acetaminophen 325 MG Tab PO PRN (21:54)
[2023-07-08] MEDS: Pantoprazole 40 MG Tab.CR PO SCH (05:43)
[2023-07-08] MEDS: Acetaminophen 325 MG Tab PO PRN ×3 (05:44→20:47)
[2023-07-08] MEDS: Amoxicillin/Clavulanate K 250-125 MG Tab PO SCH (08:10)
[2023-07-08] MEDS: Clobetasol 0.05% Crm 15 GM Tube TOP SCH ×2 (08:11→20:38)
[2023-07-08] MEDS: Fluticasone NASAL Spray 16 GM Bottle NASBOTH SCH (08:12)
[2023-07-08] MEDS: Apixaban 5 MG Tab PO SCH ×2 (08:12→20:37)
[2023-07-08] MEDS: Oxybutynin 5 MG Tab.ER PO SCH (08:13)
[2023-07-08] MEDS: Cholecalciferol (Vitamin D3) 25 MCG Tab PO SCH (08:14)
[2023-07-08] MEDS: Cyanocobalamin (Vitamin B12) 1,000 MCG Tab PO SCH (08:14)
[2023-07-08] MEDS: Carboxymethylcellulose Sodium 0.5% Ophth Soln 15 ML Bottle EYEBOTH SCH ×3 (08:14→20:36)
[2023-07-08] MEDS: Diclofenac Sodium 1% Gel 100 GM Tube TOP SCH (08:15)
[2023-07-08] MEDS: Sertraline 100 MG, Sertraline 25 MG PO SCH ×2 (08:16)
[2023-07-08] MEDS: buPROPion 150 MG Tab.ER PO SCH (08:16)
[2023-07-08] MEDS: Cetirizine 10 MG Tab PO SCH (08:16)
[2023-07-08] MEDS: Rosuvastatin 5 MG Tab PO SCH (08:24)
[2023-07-08] MEDS: Gabapentin 100 MG Cap PO SCH (08:24)
[2023-07-08] MEDS ORDERED: Sertraline 100 MG Tab PO SCH (09:00)
[2023-07-08] MEDS ORDERED: Sertraline 25 MG Tab PO SCH (09:00)
[2023-07-08] MEDS ORDERED: Ferrous Sulfate 325 MG Tab PO SCH (09:00)
[2023-07-08] MEDS ORDERED: Calcium Carbonate 500 MG Tablet PO SCH (09:00)
[2023-07-08] MEDS ORDERED: Multivitamins with Iron/Calcium/Folic Acid/Minerals Tab PO SCH (09:00)
[2023-07-08] MEDS ORDERED: Diclofenac Sodium 1% Gel 100 GM Tube TOP PRN (10:00)
[2023-07-08] MEDS: Acetaminophen/Codeine 300-30 MG Tab PO PRN ×2 (17:36→23:47)
[2023-07-08] MEDS: Carboxymethylcellulose Sodium 1% Ophth Gel 15 ML Bottle EYELF SCH (20:36)
[2023-07-08] MEDS: Doxycycline 100 MG Tab PO SCH (20:37)
[2023-07-08] MEDS: Amoxicillin/Clavulanate K 500-125 MG Tab PO SCH (20:37)
[2023-07-09] MEDS: Acetaminophen 325 MG Tab PO PRN ×2 (02:44→08:07)
[2023-07-09] MEDS: Pantoprazole 40 MG Tab.CR PO SCH (05:29)
[2023-07-09] MEDS: Acetaminophen/Codeine 300-30 MG Tab PO PRN ×2 (08:07→20:29)
[2023-07-09] MEDS: Fluticasone NASAL Spray 16 GM Bottle NASBOTH SCH (08:14)
[2023-07-09] MEDS: Cetirizine 10 MG Tab PO SCH (08:23)
[2023-07-09] MEDS: Oxybutynin 5 MG Tab.ER PO SCH (08:23)
[2023-07-09] MEDS: Doxycycline 100 MG Tab PO SCH ×2 (08:23→21:30)
[2023-07-09] MEDS: buPROPion 150 MG Tab.ER PO SCH (08:23)
[2023-07-09] MEDS: Gabapentin 100 MG Cap PO SCH (08:23)
[2023-07-09] MEDS: Apixaban 5 MG Tab PO SCH ×2 (08:24→21:30)
[2023-07-09] MEDS: Amoxicillin/Clavulanate K 500-125 MG Tab PO SCH ×2 (08:24→21:30)
[2023-07-09] MEDS: Sertraline 100 MG, Sertraline 25 MG PO SCH ×2 (08:24)
[2023-07-09] MEDS: Cyanocobalamin (Vitamin B12) 1,000 MCG Tab PO SCH (08:25)
[2023-07-09] MEDS: Rosuvastatin 5 MG Tab PO SCH (08:28)
[2023-07-09] MEDS: Cholecalciferol (Vitamin D3) 25 MCG Tab PO SCH (08:29)
[2023-07-09] MEDS: Carboxymethylcellulose Sodium 0.5% Ophth Soln 15 ML Bottle EYEBOTH SCH ×3 (08:31→21:30)
[2023-07-09] MEDS: Clobetasol 0.05% Crm 15 GM Tube TOP SCH ×2 (10:43→21:30)
[2023-07-09] MEDS: Ferrous Sulfate 325 MG Tab PO SCH (13:18)
[2023-07-09] MEDS: Calcium Carbonate 500 MG Tablet PO SCH (13:18)
[2023-07-09] MEDS: Multivitamins with Iron/Calcium/Folic Acid/Minerals Tab PO SCH (13:19)
[2023-07-09] MEDS: Carboxymethylcellulose Sodium 1% Ophth Gel 15 ML Bottle EYELF SCH (21:30)
[2023-07-10] MEDS: Pantoprazole 40 MG Tab.CR PO SCH (05:25)
[2023-07-10] MEDS: Acetaminophen 325 MG Tab PO PRN ×3 (05:36→21:13)
[2023-07-10] MEDS: Acetaminophen/Codeine 300-30 MG Tab PO PRN (08:05)
[2023-07-10] MEDS: Cyanocobalamin (Vitamin B12) 1,000 MCG Tab PO SCH (08:05)
[2023-07-10] MEDS: Amoxicillin/Clavulanate K 500-125 MG Tab PO SCH ×2 (08:05→20:55)
[2023-07-10] MEDS: Fluticasone NASAL Spray 16 GM Bottle NASBOTH SCH (08:06)
[2023-07-10] MEDS: Gabapentin 100 MG Cap PO SCH (08:06)
[2023-07-10] MEDS: Cholecalciferol (Vitamin D3) 25 MCG Tab PO SCH (08:06)
[2023-07-10] MEDS: Apixaban 5 MG Tab PO SCH ×2 (08:06→20:56)
[2023-07-10] MEDS: Clobetasol 0.05% Crm 15 GM Tube TOP SCH ×2 (08:07→20:55)
[2023-07-10] MEDS: Doxycycline 100 MG Tab PO SCH ×2 (08:08→20:58)
[2023-07-10] MEDS: Oxybutynin 5 MG Tab.ER PO SCH (08:09)
[2023-07-10] MEDS: Carboxymethylcellulose Sodium 0.5% Ophth Soln 15 ML Bottle EYEBOTH SCH ×3 (08:10→20:57)
[2023-07-10] MEDS: Cetirizine 10 MG Tab PO SCH (08:10)
[2023-07-10] MEDS: buPROPion 150 MG Tab.ER PO SCH (08:11)
[2023-07-10] MEDS: Sertraline 100 MG, Sertraline 25 MG PO SCH ×2 (08:11)
[2023-07-10] MEDS: Rosuvastatin 5 MG Tab PO SCH (08:15)
[2023-07-10] MEDS: Ferrous Sulfate 325 MG Tab PO SCH (12:50)
[2023-07-10] MEDS: Multivitamins with Iron/Calcium/Folic Acid/Minerals Tab PO SCH (12:50)
[2023-07-10] MEDS: Calcium Carbonate 500 MG Tablet PO SCH (12:50)
[2023-07-10] MEDS: Carboxymethylcellulose Sodium 1% Ophth Gel 15 ML Bottle EYELF SCH (20:56)
[2023-07-11] MEDS: Acetaminophen/Codeine 300-30 MG Tab PO PRN ×3 (02:19→20:50)
[2023-07-11] MEDS: Pantoprazole 40 MG Tab.CR PO SCH (06:03)
[2023-07-11] MEDS: Acetaminophen 325 MG Tab PO PRN ×3 (06:03→17:30)
[2023-07-11] MEDS: Fluticasone NASAL Spray 16 GM Bottle NASBOTH SCH (08:24)
[2023-07-11] MEDS: Amoxicillin/Clavulanate K 500-125 MG Tab PO SCH ×2 (08:26→20:55)
[2023-07-11] MEDS: Rosuvastatin 5 MG Tab PO SCH (08:26)
[2023-07-11] MEDS: Cetirizine 10 MG Tab PO SCH (08:26)
[2023-07-11] MEDS: Doxycycline 100 MG Tab PO SCH ×2 (08:27→20:58)
[2023-07-11] MEDS: Oxybutynin 5 MG Tab.ER PO SCH (08:27)
[2023-07-11] MEDS: Sertraline 100 MG, Sertraline 25 MG PO SCH ×2 (08:27)
[2023-07-11] MEDS: Carboxymethylcellulose Sodium 0.5% Ophth Soln 15 ML Bottle EYEBOTH SCH ×3 (08:28→20:57)
[2023-07-11] MEDS: Cholecalciferol (Vitamin D3) 25 MCG Tab PO SCH (08:30)
[2023-07-11] MEDS: Apixaban 5 MG Tab PO SCH ×2 (08:31→20:56)
[2023-07-11] MEDS: Cyanocobalamin (Vitamin B12) 1,000 MCG Tab PO SCH (08:33)
[2023-07-11] MEDS: buPROPion 150 MG Tab.ER PO SCH (08:33)
[2023-07-11] MEDS: Gabapentin 100 MG Cap PO SCH (08:41)
[2023-07-11] MEDS: Clobetasol 0.05% Crm 15 GM Tube TOP SCH ×2 (08:42→20:56)
[2023-07-11] MEDS: Calcium Carbonate 500 MG Tablet PO SCH (11:33)
[2023-07-11] MEDS: Multivitamins with Iron/Calcium/Folic Acid/Minerals Tab PO SCH (11:33)
[2023-07-11] MEDS: Ferrous Sulfate 325 MG Tab PO SCH (11:33)
[2023-07-11] MEDS: Carboxymethylcellulose Sodium 1% Ophth Gel 15 ML Bottle EYELF SCH (20:56)
[2023-07-12] MEDS: Acetaminophen/Codeine 300-30 MG Tab PO PRN ×2 (03:37→08:58)
[2023-07-12] MEDS: Pantoprazole 40 MG Tab.CR PO SCH (06:00)
[2023-07-12] MEDS: Clobetasol 0.05% Crm 15 GM Tube TOP SCH ×2 (08:17→21:22)
[2023-07-12] MEDS: buPROPion 150 MG Tab.ER PO SCH (08:17)
[2023-07-12] MEDS: Cyanocobalamin (Vitamin B12) 1,000 MCG Tab PO SCH (08:17)
[2023-07-12] MEDS: Doxycycline 100 MG Tab PO SCH ×2 (08:17→21:25)
[2023-07-12] MEDS: Sertraline 100 MG, Sertraline 25 MG PO SCH ×2 (08:18)
[2023-07-12] MEDS: Apixaban 5 MG Tab PO SCH ×2 (08:18→21:23)
[2023-07-12] MEDS: Fluticasone NASAL Spray 16 GM Bottle NASBOTH SCH (08:18)
[2023-07-12] MEDS: Rosuvastatin 5 MG Tab PO SCH (08:18)
[2023-07-12] MEDS: Carboxymethylcellulose Sodium 0.5% Ophth Soln 15 ML Bottle EYEBOTH SCH ×3 (08:18→21:23)
[2023-07-12] MEDS: Cholecalciferol (Vitamin D3) 25 MCG Tab PO SCH (08:18)
[2023-07-12] MEDS: Oxybutynin 5 MG Tab.ER PO SCH (08:19)
[2023-07-12] MEDS: Cetirizine 10 MG Tab PO SCH (08:22)
[2023-07-12] MEDS: Gabapentin 100 MG Cap PO SCH (08:22)
[2023-07-12] MEDS: Multivitamins with Iron/Calcium/Folic Acid/Minerals Tab PO SCH (13:02)
[2023-07-12] MEDS: Calcium Carbonate 500 MG Tablet PO SCH (13:02)
[2023-07-12] MEDS: Ferrous Sulfate 325 MG Tab PO SCH (13:02)
[2023-07-12] MEDS: Acetaminophen 325 MG Tab PO PRN (17:44)
[2023-07-12] MEDS: Carboxymethylcellulose Sodium 1% Ophth Gel 15 ML Bottle EYELF SCH (21:23)
[2023-07-13] MEDS: Acetaminophen/Codeine 300-30 MG Tab PO PRN ×2 (01:14→08:20)
[2023-07-13] MEDS: Acetaminophen 325 MG Tab PO PRN ×4 (06:07→20:49)
[2023-07-13] MEDS: Pantoprazole 40 MG Tab.CR PO SCH (06:08)
[2023-07-13] MEDS: Clobetasol 0.05% Crm 15 GM Tube TOP SCH ×2 (08:21→20:37)
[2023-07-13] MEDS: Gabapentin 100 MG Cap PO SCH (08:21)
[2023-07-13] MEDS: Rosuvastatin 5 MG Tab PO SCH (08:21)
[2023-07-13] MEDS: Doxycycline 100 MG Tab PO SCH ×2 (08:21→20:44)
[2023-07-13] MEDS: Oxybutynin 5 MG Tab.ER PO SCH (08:22)
[2023-07-13] MEDS: Fluticasone NASAL Spray 16 GM Bottle NASBOTH SCH (08:22)
[2023-07-13] MEDS: Cyanocobalamin (Vitamin B12) 1,000 MCG Tab PO SCH (08:22)
[2023-07-13] MEDS: Carboxymethylcellulose Sodium 0.5% Ophth Soln 15 ML Bottle EYEBOTH SCH ×3 (08:22→20:43)
[2023-07-13] MEDS: buPROPion 150 MG Tab.ER PO SCH (08:22)
[2023-07-13] MEDS: Sertraline 100 MG, Sertraline 25 MG PO SCH ×2 (08:23)
[2023-07-13] MEDS: Cholecalciferol (Vitamin D3) 25 MCG Tab PO SCH (08:23)
[2023-07-13] MEDS: Apixaban 5 MG Tab PO SCH ×2 (08:23→20:41)
[2023-07-13] MEDS: Cetirizine 10 MG Tab PO SCH (08:23)
[2023-07-13] MEDS: Calcium Carbonate 500 MG Tablet PO SCH (11:46)
[2023-07-13] MEDS: Multivitamins with Iron/Calcium/Folic Acid/Minerals Tab PO SCH (11:46)
[2023-07-13] MEDS: Ferrous Sulfate 325 MG Tab PO SCH (11:46)
[2023-07-13] MEDS: Carboxymethylcellulose Sodium 1% Ophth Gel 15 ML Bottle EYELF SCH (20:42)
[2023-07-14] MEDS: Acetaminophen 325 MG Tab PO PRN ×3 (06:08→21:33)
[2023-07-14] MEDS: Pantoprazole 40 MG Tab.CR PO SCH (06:08)
[2023-07-14] MEDS: Fluticasone NASAL Spray 16 GM Bottle NASBOTH SCH (08:46)
[2023-07-14] MEDS: Carboxymethylcellulose Sodium 0.5% Ophth Soln 15 ML Bottle EYEBOTH SCH ×3 (08:46→21:24)
[2023-07-14] MEDS: Clobetasol 0.05% Crm 15 GM Tube TOP SCH ×2 (08:46→21:22)
[2023-07-14] MEDS: buPROPion 150 MG Tab.ER PO SCH (08:47)
[2023-07-14] MEDS: Apixaban 5 MG Tab PO SCH ×2 (08:47→21:24)
[2023-07-14] MEDS: Cyanocobalamin (Vitamin B12) 1,000 MCG Tab PO SCH (08:47)
[2023-07-14] MEDS: Cetirizine 10 MG Tab PO SCH (08:47)
[2023-07-14] MEDS: Rosuvastatin 5 MG Tab PO SCH (08:48)
[2023-07-14] MEDS: Cholecalciferol (Vitamin D3) 25 MCG Tab PO SCH (08:48)
[2023-07-14] MEDS: Sertraline 100 MG Tab PO SCH (08:48)
[2023-07-14] MEDS: Oxybutynin 5 MG Tab.ER PO SCH (08:48)
[2023-07-14] MEDS: Gabapentin 100 MG Cap PO SCH (08:54)
[2023-07-14] MEDS: Ferrous Sulfate 325 MG Tab PO SCH (12:26)
[2023-07-14] MEDS: Calcium Carbonate 500 MG Tablet PO SCH (12:26)
[2023-07-14] MEDS: Multivitamins with Iron/Calcium/Folic Acid/Minerals Tab PO SCH (12:26)
[2023-07-14] MEDS: Carboxymethylcellulose Sodium 1% Ophth Gel 15 ML Bottle EYELF SCH (21:24)
[2023-07-15] MEDS: Acetaminophen/Codeine 300-30 MG Tab PO PRN ×2 (02:28→09:01)
[2023-07-15 06:24] VITALS: BP 105/57; PULSE 101
[2023-07-15] MEDS: Pantoprazole 40 MG Tab.CR PO SCH (06:25)
[2023-07-15] MEDS: Acetaminophen 325 MG Tab PO PRN (06:40)
[2023-07-15] MEDS: Rosuvastatin 5 MG Tab PO SCH (08:51)
[2023-07-15] MEDS: Carboxymethylcellulose Sodium 0.5% Ophth Soln 15 ML Bottle EYEBOTH SCH (08:51)
[2023-07-15] MEDS: Fluticasone NASAL Spray 16 GM Bottle NASBOTH SCH (08:51)
[2023-07-15] MEDS: Apixaban 5 MG Tab PO SCH (08:51)
[2023-07-15] MEDS: Oxybutynin 5 MG Tab.ER PO SCH (08:51)
[2023-07-15] MEDS: Sertraline 100 MG Tab PO SCH (08:52)
[2023-07-15] MEDS: Cholecalciferol (Vitamin D3) 25 MCG Tab PO SCH (08:52)
[2023-07-15] MEDS: buPROPion 150 MG Tab.ER PO SCH (08:52)
[2023-07-15] MEDS: Cyanocobalamin (Vitamin B12) 1,000 MCG Tab PO SCH (08:52)
[2023-07-15] MEDS: Cetirizine 10 MG Tab PO SCH (08:52)
[2023-07-15] MEDS: Gabapentin 100 MG Cap PO SCH (09:03)
[2023-07-15] MEDS: Multivitamins with Iron/Calcium/Folic Acid/Minerals Tab PO SCH (12:28)
[2023-07-15] MEDS: Ferrous Sulfate 325 MG Tab PO SCH (12:28)
[2023-07-15] MEDS: Calcium Carbonate 500 MG Tablet PO SCH (12:28)
== END 2023-07-15 12:40 | disposition home health service (06) | DRG 948 ==
LOC: FB.MS 10:45
PROVIDERS: ADMIT Family Medicine; ATTEND Family Medicine
DX: R53.81 Other malaise (principal); N17.9 Acute kidney failure, unspecified; E87.1 Hypo-osmolality and hyponatremia; I13.0 Hypertensive heart and chronic kidney disease with heart failure and stage 1 through stage 4 chronic kidney disease, or unspecified chronic kidney disease; I50.32 Chronic diastolic (congestive) heart failure; L03.116 Cellulitis of left lower limb; I95.9 Hypotension, unspecified; I25.10 Atherosclerotic heart disease of native coronary artery without angina pectoris; E78.00 Pure hypercholesterolemia, unspecified; G47.30 Sleep apnea, unspecified; K21.9 Gastro-esophageal reflux disease without esophagitis; E78.5 Hyperlipidemia, unspecified; N18.31 Chronic kidney disease, stage 3a; M81.0 Age-related osteoporosis without current pathological fracture; D50.9 Iron deficiency anemia, unspecified; F41.9 Anxiety disorder, unspecified; F32.A Depression, unspecified; F90.9 Attention-deficit hyperactivity disorder, unspecified type; F98.8 Other specified behavioral and emotional disorders with onset usually occurring in childhood and adolescence; T43.225A Adverse effect of selective serotonin reuptake inhibitors, initial encounter; I48.91 Unspecified atrial fibrillation; H02.402 Unspecified ptosis of left eyelid; I87.2 Venous insufficiency (chronic) (peripheral); Z90.710 Acquired absence of both cervix and uterus; Z90.49 Acquired absence of other specified parts of digestive tract; Z86.73 Personal history of transient ischemic attack (TIA), and cerebral infarction without residual deficits; Z88.8 Allergy status to other drugs, medicaments and biological substances; Z79.899 Other long term (current) drug therapy; Z98.84 Bariatric surgery status; Z98.890 Other specified postprocedural states; Z90.89 Acquired absence of other organs
CPT/HCPCS: 97110-GO; 97110-GP; 97530-GO; 97530-GP; 97535-GO; A9270-GY; Q0162; U0002

== ENCOUNTER 2023-07-28 14:30 | Emergency (ER) | payer OTHER, MEDICARE ==
[2023-07-28] MEDS ORDERED: Sodium Chloride 0.9% 10 ML Syringe FLUSH PRN (14:37)
[2023-07-28 15:25] LABS: A/G RATIO 0.5; ALANINE AMINOTRANSFERASE,ALT 22 U/L (12-36); ALKALINE PHOSPHATASE 142 IU/L (56-112); ASPARTATE AMNIOTRANSFERASE,AST 18 IU/L (5-25); BILIRUBIN TOTAL 0.2 mg/dL (0.1-1.3); BLOOD UREA NITROGEN,BUN 37 mg/dL (7-18); BUN/CREATININE RATIO 13.2 (9-20); CALCIUM 8.1 mg/dL (8.6-10.2); CARBON DIOXIDE,CO2 19 mmol/L (21-32); CHLORIDE,CL 95 mmol/L (100-110); ESTIMATED GFR 17 mL/min (>60); GLUCOSE RANDOM 185 mg/dL (80-116); POTASSIUM,K 4.5 mmol/L (3.5-5.3); PROTEIN TOTAL,TP 6.2 g/dL (6.0-8.0); SODIUM,NA 126 mmol/L (135-145)
[2023-07-28 15:32] LABS: CREATININE 2.8 mg/dL (0.55-1.02); TROPONIN I 12.2 pg/mL (4.0-60.3)
[2023-07-28 15:34] LABS: HEMATOCRIT 36.8 % (34.2-48.2); HEMOGLOBIN 11.3 g/dL (11.4-15.5); MEAN CORPUSCULAR HEMOGLOBIN 22.9 pg (23.9-33.9); MEAN CORPUSCULAR HGB CONC 30.7 g/dL (31.9-34.8); MEAN CORPUSCULAR VOLUME 74.5 fL (76.7-100.5); MEAN PLATELET VOLUME 7.5 fL (7.1-12.4); PLATELET COUNT,PLT 522 x10(3)uL (151-488); RED BLOOD CELL COUNT 4.93 x10(6)uL (3.60-5.20); RED CELL DISTRIBUTION WIDTH 27.2 % (12.3-16.5); WHITE BLOOD CELL COUNT,WBC 24.8 x10-3/uL (3.0-10.3)
[2023-07-28 15:50] LABS: INR 1.23 (1.00-1.24); PROTHROMBIN TIME 12.6 sec (9.0-11.1)
[2023-07-28 15:52] LABS: BAND PERCENT MAN 5 % (0-6); LYMPHOCYTES PERCENT MAN 7 % (13-37); MONOCYTES PERCENT MAN 3 % (4-12); SEG NEUTROPHILS PERCENT MAN 85 % (46-82)
[2023-07-28 15:54] LABS: PTT,PARTIAL THROMBOPLSTIN TIME 63.9 SECONDS (24.4-33.2)
[2023-07-28 16:16] LABS: APPEARANCE,URINE SLIGHTLY CLOUDY (CLEAR); BACTERIA,URINE FEW (NS); BILIRUBIN,URINE MODERATE (NEGATIVE); COLOR,URINE YELLOW (YELLOW); GLUCOSE,URINE NORMAL (NORMAL); KETONES,URINE NEGATIVE (NEGATIVE); LEUKOCYTE ESTERASE,URINE SMALL (NEGATIVE); NITRITE,URINE NEGATIVE (NEGATIVE); OCCULT BLOOD,URINE NEGATIVE (NEGATIVE); PROTEIN,URINE NEGATIVE (NEGATIVE); RBC,URINE 0-5 (0-5); SQUAMOUS EPITHELIAL CELLS,UR FEW (NS,R,O); UROBILINOGEN,URINE NORMAL (NEGATIVE); WBC,URINE 0-5 (0-5)
[2023-07-28 16:17] LABS: YEAST,URINE OCCASIONAL (NS)
[2023-07-28 16:32] LABS: LACTIC ACID 3.3 mmol/L (0.4-2.0)
[2023-07-28] MEDS ORDERED: Piperacillin/Tazobactam 3.375 GM in Sodium Chloride 0.9% 50 ML IV STA (16:48)
[2023-07-28] MEDS ORDERED: VANCOmycin 1 GM/200 ML 1 GM in Premix Bag 1 BAG IV ONE (16:48)
[2023-07-28] MEDS ORDERED: Sodium Chloride 0.9% 1,000 ML IV SCH ×3 (17:00→17:15)
[2023-07-28] MEDS ORDERED: Sodium Chloride 0.9% 500 ML IV ONE (17:15)
[2023-07-28] MEDS ORDERED: Piperacillin/Tazobactam 2.25 GM in Sodium Chloride 0.9% 50 ML IV ONE (17:15)
[2023-07-28] MEDS ORDERED: traMADol 50 MG Tab PO ONE (17:37)
[2023-07-28] MEDS ORDERED: Acetaminophen 500 MG Tab PO ONE (17:38)
[2023-07-28 17:46] VITALS: BP 121/69; PULSE 102
== END 2023-07-28 18:06 | disposition home or self-care (01) ==
LOC: FB.ED 14:30
DX: A41.9 Sepsis, unspecified organism (principal); N39.0 Urinary tract infection, site not specified; N17.9 Acute kidney failure, unspecified; L03.115 Cellulitis of right lower limb; L03.116 Cellulitis of left lower limb; I48.91 Unspecified atrial fibrillation; I25.10 Atherosclerotic heart disease of native coronary artery without angina pectoris; E78.00 Pure hypercholesterolemia, unspecified; I13.0 Hypertensive heart and chronic kidney disease with heart failure and stage 1 through stage 4 chronic kidney disease, or unspecified chronic kidney disease; N18.31 Chronic kidney disease, stage 3a; I50.9 Heart failure, unspecified; K21.9 Gastro-esophageal reflux disease without esophagitis; Z88.8 Allergy status to other drugs, medicaments and biological substances; Z79.01 Long term (current) use of anticoagulants; Z79.899 Other long term (current) drug therapy; Z86.73 Personal history of transient ischemic attack (TIA), and cerebral infarction without residual deficits
CPT/HCPCS: 36415; 71045; 80053; 81001; 83605; 83880; 84484; 85025; 85610; 85730; 87040; 87086; 87088; 87186; 93005; 96365; 96367; 99285; A9270; J2543; J3370; J3490; J7040; 93010

== ENCOUNTER 2023-08-24 15:28 | Observation (INO) | payer MEDICARE ==
[2023-08-24] MEDS: Sodium Chloride 0.9% 10 ML Syringe FLUSH PRN (15:55)
[2023-08-24 16:22] LABS: BASOPHILS ABSOLUTE AUTO 0.1 x10-3/uL (0.0-0.1); BASOPHILS PERCENT AUTO 1.4 % (0.2-1.5); EOSINOPHILS ABSOLUTE AUTO 0.2 x10-3/uL (0.0-0.8); EOSINOPHILS PERCENT AUTO 3.1 % (0.6-8.1); HEMATOCRIT 32.6 % (34.2-48.2); HEMOGLOBIN 10.4 g/dL (11.4-15.5); LYMPHOCYTES PERCENT AUTO 13.5 % (18.4-52.1); MEAN CORPUSCULAR HEMOGLOBIN 25.5 pg (23.9-33.9); MEAN CORPUSCULAR HGB CONC 31.9 g/dL (31.9-34.8); MEAN CORPUSCULAR VOLUME 80.1 fL (76.7-100.5); MEAN PLATELET VOLUME 7.4 fL (7.1-12.4); MONOCYTES ABSOLUTE AUTO 0.6 x10-3/uL (0.3-1.0); MONOCYTES PERCENT AUTO 8.1 % (4.4-15.7); NEUTROPHILS ABSOLUTE AUTO 5.7 x10-3/uL (1.5-6.3); NEUTROPHILS PERCENT AUTO 73.9 % (30.8-76.2); PLATELET COUNT,PLT 479 x10(3)uL (151-488); RED BLOOD CELL COUNT 4.07 x10(6)uL (3.60-5.20); RED CELL DISTRIBUTION WIDTH 26.2 % (12.3-16.5); WHITE BLOOD CELL COUNT,WBC 7.8 x10-3/uL (3.0-10.3)
[2023-08-24 16:28] LABS: BLOOD UREA NITROGEN,BUN 11 mg/dL (7-18); BUN/CREATININE RATIO 7.3 (9-20); CALCIUM 8.5 mg/dL (8.6-10.2); CARBON DIOXIDE,CO2 25 mmol/L (21-32); CHLORIDE,CL 102 mmol/L (100-110); CREATININE 1.5 mg/dL (0.55-1.02); EST CRCL DRUG DOSING (CG) 24.35 mL/min; ESTIMATED GFR 37 mL/min (>60); GLUCOSE RANDOM 82 mg/dL (80-116); POTASSIUM,K 4.7 mmol/L (3.5-5.3); SODIUM,NA 135 mmol/L (135-145)
[2023-08-24 16:33] LABS: INR 1.18 (1.00-1.24)
[2023-08-24 16:34] LABS: A/G RATIO 0.5; ALANINE AMINOTRANSFERASE,ALT 21 U/L (12-36); ALBUMIN 2.1 g/dL (3.2-4.6); ALKALINE PHOSPHATASE 86 IU/L (56-112); ASPARTATE AMNIOTRANSFERASE,AST 16 IU/L (5-25); BILIRUBIN TOTAL 0.3 mg/dL (0.1-1.3)
[2023-08-24 16:35] LABS: PROTHROMBIN TIME 12.1 sec (9.0-11.1); PTT,PARTIAL THROMBOPLSTIN TIME 39.8 SECONDS (24.4-33.2)
[2023-08-24 16:41] LABS: TROPONIN I 6.8 pg/mL (4.0-60.3)
[2023-08-24] MEDS ORDERED: Sennosides/Docusate Sodium 50-8.6 MG Tab PO PRN (18:45)
[2023-08-24] MEDS ORDERED: Ondansetron 4 MG/2 ML SDV IV PRN (18:45)
[2023-08-24] MEDS: Acetaminophen/Codeine 300-30 MG Tab PO PRN (20:26)
[2023-08-24] MEDS ORDERED: Cholestyramine/Sucrose Powder 4 GM Packet PO PRN (20:39)
[2023-08-24] MEDS ORDERED: Acetaminophen 325 MG Tab PO PRN (20:39)
[2023-08-24] MEDS: Apixaban 5 MG Tab PO SCH (21:56)
[2023-08-24] MEDS: Carboxymethylcellulose Sodium 0.5% Ophth Soln 15 ML Bottle EYELF SCH (21:56)
[2023-08-24] MEDS: Gabapentin 100 MG Cap PO SCH (21:56)
[2023-08-25] MEDS: Acetaminophen/Codeine 300-30 MG Tab PO PRN ×3 (01:23→20:48)
[2023-08-25 06:42] LABS: BASOPHILS ABSOLUTE AUTO 0.1 x10-3/uL (0.0-0.1); BASOPHILS PERCENT AUTO 0.5 % (0.2-1.5); EOSINOPHILS ABSOLUTE AUTO 0.2 x10-3/uL (0.0-0.8); EOSINOPHILS PERCENT AUTO 2.4 % (0.6-8.1); HEMATOCRIT 32.2 % (34.2-48.2); HEMOGLOBIN 10.3 g/dL (11.4-15.5); LYMPHOCYTES ABSOLUTE AUTO 0.8 x10-3/uL (1.0-4.4); LYMPHOCYTES PERCENT AUTO 8.3 % (18.4-52.1); MEAN CORPUSCULAR HGB CONC 32.1 g/dL (31.9-34.8); MEAN CORPUSCULAR VOLUME 80.8 fL (76.7-100.5); MONOCYTES ABSOLUTE AUTO 0.7 x10-3/uL (0.3-1.0); MONOCYTES PERCENT AUTO 6.8 % (4.4-15.7); NEUTROPHILS ABSOLUTE AUTO 8.3 x10-3/uL (1.5-6.3); PLATELET COUNT,PLT 475 x10(3)uL (151-488); RED BLOOD CELL COUNT 3.98 x10(6)uL (3.60-5.20); RED CELL DISTRIBUTION WIDTH 26.1 % (12.3-16.5); WHITE BLOOD CELL COUNT,WBC 10.1 x10-3/uL (3.0-10.3)
[2023-08-25 06:51] LABS: A/G RATIO 0.5; ALANINE AMINOTRANSFERASE,ALT 22 U/L (12-36); ALBUMIN 1.9 g/dL (3.2-4.6); ALKALINE PHOSPHATASE 85 IU/L (56-112); ASPARTATE AMNIOTRANSFERASE,AST 19 IU/L (5-25); BILIRUBIN TOTAL 0.3 mg/dL (0.1-1.3); BLOOD UREA NITROGEN,BUN 12 mg/dL (7-18); BUN/CREATININE RATIO 8.6 (9-20); CALCIUM 8.4 mg/dL (8.6-10.2); CARBON DIOXIDE,CO2 25 mmol/L (21-32); CHLORIDE,CL 104 mmol/L (100-110); CREATININE 1.4 mg/dL (0.55-1.02); EST CRCL DRUG DOSING (CG) 26.09 mL/min; ESTIMATED GFR 40 mL/min (>60); GLUCOSE RANDOM 84 mg/dL (80-116); POTASSIUM,K 4.7 mmol/L (3.5-5.3); PROTEIN TOTAL,TP 5.7 g/dL (6.0-8.0); SODIUM,NA 137 mmol/L (135-145)
[2023-08-25] MEDS ORDERED: Pantoprazole 40 MG Tab.CR PO SCH (07:30)
[2023-08-25] MEDS ORDERED: Midodrine 5 MG Tab PO SCH (07:30)
[2023-08-25] MEDS ORDERED: Non-Formulary Medication 1 Each (Omeprazole [Omeprazole] 20 MG Cap.Cr) PO SCH (09:00)
[2023-08-25] MEDS ORDERED: Sertraline 100 MG Tab PO SCH (09:00)
[2023-08-25] MEDS ORDERED: Ferrous Sulfate 325 MG Tab PO SCH (09:00)
[2023-08-25] MEDS ORDERED: Cholecalciferol (Vitamin D3) 25 MCG Tab PO SCH (09:00)
[2023-08-25] MEDS ORDERED: Oxybutynin 5 MG Tab.ER PO SCH (09:00)
[2023-08-25] MEDS ORDERED: Rosuvastatin 5 MG Tab PO SCH (09:00)
[2023-08-25] MEDS ORDERED: Multivitamins with Iron/Calcium/Folic Acid/Minerals Tab PO SCH (09:00)
[2023-08-25] MEDS ORDERED: buPROPion 150 MG Tab.ER PO SCH (09:00)
[2023-08-25] MEDS ORDERED: Fluticasone NASAL Spray 16 GM Bottle NASBOTH SCH (09:00)
[2023-08-25] MEDS ORDERED: Acetaminophen/Codeine 300-30 MG Tab PO PRN ×2 (09:04→16:00)
[2023-08-25] MEDS ORDERED: Furosemide 40 MG/4 ML VIAL IVPUSH SCH (09:15)
[2023-08-25] MEDS: Apixaban 5 MG Tab PO SCH ×2 (09:21→20:49)
[2023-08-25] MEDS: Carboxymethylcellulose Sodium 0.5% Ophth Soln 15 ML Bottle EYELF SCH ×3 (09:22→20:49)
[2023-08-25] MEDS: Carvedilol 12.5 MG Tab PO SCH ×2 (10:00→23:03)
[2023-08-25] MEDS: Sodium Chloride 0.9% 10 ML Syringe FLUSH PRN ×2 (10:07→20:53)
[2023-08-25] MEDS ORDERED: Furosemide 20 MG/2 ML VIAL IVPUSH SCH (10:15)
[2023-08-25] MEDS ORDERED: Acetaminophen/Codeine 300-30 MG Tab PO STA (11:48)
[2023-08-25] MEDS: Gabapentin 100 MG Cap PO SCH (20:48)
[2023-08-26 04:01] VITALS: BP 105/57; PULSE 93
[2023-08-26] MEDS: Acetaminophen/Codeine 300-30 MG Tab PO PRN (05:14)
[2023-08-26] MEDS ORDERED: Furosemide 20 MG Tab PO SCH (09:00)
[2023-08-26] MEDS ORDERED: Pantoprazole 40 MG Tab.CR PO SCH (09:00)
== END 2023-08-26 07:35 ==
LOC: FB.ED 15:28 → FB.MS 19:21
PROVIDERS: ADMIT Emergency Medicine; ATTEND Family Medicine
DX: I89.0 Lymphedema, not elsewhere classified (principal); I87.2 Venous insufficiency (chronic) (peripheral); L97.211 Non-pressure chronic ulcer of right calf limited to breakdown of skin; L97.221 Non-pressure chronic ulcer of left calf limited to breakdown of skin; R53.81 Other malaise; R09.02 Hypoxemia; I25.10 Atherosclerotic heart disease of native coronary artery without angina pectoris; I13.0 Hypertensive heart and chronic kidney disease with heart failure and stage 1 through stage 4 chronic kidney disease, or unspecified chronic kidney disease; N18.32 Chronic kidney disease, stage 3b; D63.1 Anemia in chronic kidney disease; I50.32 Chronic diastolic (congestive) heart failure; E78.00 Pure hypercholesterolemia, unspecified; K21.9 Gastro-esophageal reflux disease without esophagitis; I27.20 Pulmonary hypertension, unspecified; M81.0 Age-related osteoporosis without current pathological fracture; F90.9 Attention-deficit hyperactivity disorder, unspecified type; F41.9 Anxiety disorder, unspecified; F32.A Depression, unspecified; I48.20 Chronic atrial fibrillation, unspecified; Z51.5 Encounter for palliative care; Z88.8 Allergy status to other drugs, medicaments and biological substances; Z79.01 Long term (current) use of anticoagulants; Z79.899 Other long term (current) drug therapy
CPT/HCPCS: 36415; 71045; 80053; 83880; 84484; 85025; 85610; 85730; 93005; 93010; 96374; 99222; 99238; 99284; 99285; A9270-GY; G0378; J1940; J3490

== ENCOUNTER 2023-12-02 14:35 | Inpatient (IN) | payer MEDICARE ==
[2023-12-02] MEDS ORDERED: VANCOmycin 1 GM/200 ML 1 GM in Premix Bag 1 BAG IV SCH (15:45)
[2023-12-02 16:05] LABS: HEMOGLOBIN 13.6 g/dL (11.4-15.5); MEAN CORPUSCULAR HEMOGLOBIN 29.4 pg (23.9-33.9); MEAN CORPUSCULAR HGB CONC 32.3 g/dL (31.9-34.8); MEAN CORPUSCULAR VOLUME 91.3 fL (76.7-100.5); MEAN PLATELET VOLUME 7.1 fL (7.1-12.4); PLATELET COUNT,PLT 583 x10(3)uL (151-488); RED BLOOD CELL COUNT 4.61 x10(6)uL (3.60-5.20); RED CELL DISTRIBUTION WIDTH 15.3 % (12.3-16.5)
[2023-12-02] MEDS: Piperacillin/Tazobactam 3.375 GM in Sodium Chloride 0.9% 50 ML IV SCH ×2 (16:05→21:41)
[2023-12-02 16:12] LABS: INR 1.1 (1.00-1.24); PROTHROMBIN TIME 11.3 sec (9.0-11.1)
[2023-12-02 16:14] LABS: PTT,PARTIAL THROMBOPLSTIN TIME 50.7 SECONDS (24.4-33.2)
[2023-12-02 16:17] LABS: LACTIC ACID 1.2 mmol/L (0.4-2.0)
[2023-12-02 16:18] LABS: A/G RATIO 0.4; ALANINE AMINOTRANSFERASE,ALT 44 U/L (12-36); ALKALINE PHOSPHATASE 164 IU/L (56-112); ASPARTATE AMNIOTRANSFERASE,AST 31 IU/L (5-25); BILIRUBIN TOTAL 0.3 mg/dL (0.1-1.3); BLOOD UREA NITROGEN,BUN 57 mg/dL (7-18); BUN/CREATININE RATIO 20.4 (9-20); CALCIUM 8.6 mg/dL (8.6-10.2); CARBON DIOXIDE,CO2 19 mmol/L (21-32); CHLORIDE,CL 103 mmol/L (100-110); ESTIMATED GFR 17 mL/min (>60); GLUCOSE RANDOM 118 mg/dL (80-116); POTASSIUM,K 5.2 mmol/L (3.5-5.3); PROTEIN TOTAL,TP 6.2 g/dL (6.0-8.0); SODIUM,NA 133 mmol/L (135-145)
[2023-12-02 16:20] LABS: TROPONIN I 8.9 pg/mL (4.0-60.3)
[2023-12-02 16:21] LABS: ALBUMIN 1.7 g/dL (3.2-4.6); CREATININE 2.8 mg/dL (0.55-1.02)
[2023-12-02 16:22] LABS: BAND PERCENT MAN 5 % (0-6); LYMPHOCYTES PERCENT MAN 1 % (13-37); MONOCYTES PERCENT MAN 1 % (4-12); SEG NEUTROPHILS PERCENT MAN 93 % (46-82)
[2023-12-02] MEDS ORDERED: Ondansetron 4 MG/2 ML SDV IV PRN (19:50)
[2023-12-02] MEDS ORDERED: Sennosides/Docusate Sodium 50-8.6 MG Tab PO PRN (19:50)
[2023-12-02] MEDS ORDERED: Acetaminophen/oxyCODONE 325-5 MG Tab PO PRN (21:15)
[2023-12-02] MEDS ORDERED: Morphine 2 MG/ML SYRINGE IVPUSH PRN (21:17)
[2023-12-02] MEDS: Sodium Chloride 0.9% 1,000 ML IV SCH (21:38)
[2023-12-02 22:31] LABS: CORONAVIRUS COVID-19 NAA NEGATIVE (NEGATIVE); INFLUENZA A NAA NEGATIVE (NEGATIVE); INFLUENZA B NAA NEGATIVE (NEGATIVE)
[2023-12-03] MEDS ORDERED: VANCOmycin 1 GM/200 ML 1 GM in Premix Bag 1 BAG IV SCH ×2 (03:00→16:00)
[2023-12-03] MEDS: Piperacillin/Tazobactam 3.375 GM in Sodium Chloride 0.9% 50 ML IV SCH (03:37)
[2023-12-03 05:18] LABS: HEMATOCRIT 38.2 % (34.2-48.2); HEMOGLOBIN 12.2 g/dL (11.4-15.5); MEAN CORPUSCULAR HEMOGLOBIN 29.2 pg (23.9-33.9); MEAN CORPUSCULAR HGB CONC 31.9 g/dL (31.9-34.8); MEAN CORPUSCULAR VOLUME 91.5 fL (76.7-100.5); MEAN PLATELET VOLUME 7.1 fL (7.1-12.4); PLATELET COUNT,PLT 529 x10(3)uL (151-488); RED BLOOD CELL COUNT 4.17 x10(6)uL (3.60-5.20); RED CELL DISTRIBUTION WIDTH 15.4 % (12.3-16.5)
[2023-12-03 05:25] LABS: A/G RATIO 0.3; ALANINE AMINOTRANSFERASE,ALT 34 U/L (12-36); ALKALINE PHOSPHATASE 152 IU/L (56-112); ASPARTATE AMNIOTRANSFERASE,AST 19 IU/L (5-25); BILIRUBIN TOTAL 0.4 mg/dL (0.1-1.3); BLOOD UREA NITROGEN,BUN 54 mg/dL (7-18); CALCIUM 8.4 mg/dL (8.6-10.2); CARBON DIOXIDE,CO2 17 mmol/L (21-32); CHLORIDE,CL 105 mmol/L (100-110); EST CRCL DRUG DOSING (CG) 13.53 mL/min; ESTIMATED GFR 18 mL/min (>60); GLUCOSE RANDOM 76 mg/dL (80-116); PROTEIN TOTAL,TP 5.6 g/dL (6.0-8.0); SODIUM,NA 136 mmol/L (135-145)
[2023-12-03 05:27] LABS: ALBUMIN 1.4 g/dL (3.2-4.6); CREATININE 2.7 mg/dL (0.55-1.02); WHITE BLOOD CELL COUNT,WBC 35.4 x10-3/uL (3.0-10.3)
[2023-12-03 06:08] LABS: BAND PERCENT MAN 1 % (0-6); LYMPHOCYTES PERCENT MAN 3 % (13-37); MONOCYTES PERCENT MAN 1 % (4-12); SEG NEUTROPHILS PERCENT MAN 95 % (46-82)
[2023-12-03] MEDS ORDERED: Apixaban 5 MG Tab PO SCH (09:00)
[2023-12-03] MEDS ORDERED: Morphine 2 MG/ML SYRINGE IVPUSH PRN (09:20)
[2023-12-03] MEDS: Acetaminophen/oxyCODONE 325-5 MG Tab PO PRN (09:37)
[2023-12-03] MEDS: Rosuvastatin 5 MG Tab PO SCH (09:43)
[2023-12-03] MEDS: Fluticasone NASAL Spray 16 GM Bottle NASBOTH SCH (09:44)
[2023-12-03] MEDS: Ferrous Sulfate 325 MG Tab PO SCH (09:44)
[2023-12-03] MEDS: Oxybutynin 5 MG Tab.ER PO SCH (09:45)
[2023-12-03] MEDS: Carboxymethylcellulose Sodium 0.5% Ophth Soln 15 ML Bottle EYEBOTH SCH ×3 (09:45→20:51)
[2023-12-03] MEDS: Pantoprazole 20 MG Tab, Delayed Release PO SCH ×2 (09:45→16:46)
[2023-12-03] MEDS: buPROPion 150 MG Tab.ER PO SCH (09:46)
[2023-12-03] MEDS: Multivitamin Tab PO SCH (09:46)
[2023-12-03] MEDS: Cholecalciferol (Vitamin D3) 25 MCG Tab PO SCH (09:46)
[2023-12-03] MEDS: Sertraline 100 MG Tab PO SCH (09:47)
[2023-12-03] MEDS ORDERED: Sodium Chloride 0.9% 250 ML IV ONE (11:15)
[2023-12-03] MEDS: Cefepime 1 GM Vial IVPUSH SCH (12:27)
[2023-12-03] MEDS: Carvedilol 12.5 MG Tab PO SCH ×2 (12:30→20:50)
[2023-12-03] MEDS: Sodium Chloride 0.9% 1,000 ML IV SCH (12:34)
[2023-12-03] MEDS ORDERED: Albumin 5% 250 ML IV ONE (13:00)
[2023-12-03 14:57] LABS: BILIRUBIN,URINE NEGATIVE (NEGATIVE); GLUCOSE,URINE NORMAL (NORMAL); KETONES,URINE NEGATIVE (NEGATIVE); LEUKOCYTE ESTERASE,URINE LARGE (NEGATIVE); NITRITE,URINE NEGATIVE (NEGATIVE); OCCULT BLOOD,URINE NEGATIVE (NEGATIVE); PROTEIN,URINE NEGATIVE (NEGATIVE); UROBILINOGEN,URINE NORMAL (NEGATIVE)
[2023-12-03 15:00] LABS: APPEARANCE,URINE SLIGHTLY CLOUDY (CLEAR); COLOR,URINE YELLOW (YELLOW); WBC,URINE 75-100 (0-5)
[2023-12-03 15:01] LABS: BACTERIA,URINE MODERATE (NS); SQUAMOUS EPITHELIAL CELLS,UR OCCASIONAL (NS,R,O)
[2023-12-03] MEDS: Apixaban 2.5 MG Tab PO SCH (20:50)
[2023-12-03] MEDS: Gabapentin 100 MG Cap PO SCH (20:50)
[2023-12-04] MEDS: Sodium Chloride 0.9% 1,000 ML IV SCH ×3 (00:13→21:26)
[2023-12-04] MEDS: Acetaminophen/oxyCODONE 325-5 MG Tab PO PRN ×2 (04:23→20:39)
[2023-12-04] MEDS: Pantoprazole 20 MG Tab, Delayed Release PO SCH ×2 (06:29→18:44)
[2023-12-04 07:11] LABS: HEMATOCRIT 32.6 % (34.2-48.2); HEMOGLOBIN 10.6 g/dL (11.4-15.5); MEAN CORPUSCULAR HEMOGLOBIN 29.9 pg (23.9-33.9); MEAN CORPUSCULAR HGB CONC 32.6 g/dL (31.9-34.8); MEAN CORPUSCULAR VOLUME 91.6 fL (76.7-100.5); MEAN PLATELET VOLUME 7.5 fL (7.1-12.4); PLATELET COUNT,PLT 496 x10(3)uL (151-488); RED BLOOD CELL COUNT 3.56 x10(6)uL (3.60-5.20)
[2023-12-04 07:18] LABS: A/G RATIO 0.4; ALANINE AMINOTRANSFERASE,ALT 24 U/L (12-36); ALKALINE PHOSPHATASE 126 IU/L (56-112); ASPARTATE AMNIOTRANSFERASE,AST 12 IU/L (5-25); BILIRUBIN TOTAL 0.2 mg/dL (0.1-1.3); BLOOD UREA NITROGEN,BUN 43 mg/dL (7-18); BUN/CREATININE RATIO 20.5 (9-20); CARBON DIOXIDE,CO2 15 mmol/L (21-32); CHLORIDE,CL 106 mmol/L (100-110); EST CRCL DRUG DOSING (CG) 17.39 mL/min; ESTIMATED GFR 25 mL/min (>60); GLUCOSE RANDOM 73 mg/dL (80-116); SODIUM,NA 134 mmol/L (135-145)
[2023-12-04 07:28] LABS: BAND PERCENT MAN 3 % (0-6); EOSINOPHILS PERCENT MAN 2 % (0-5); LYMPHOCYTES PERCENT MAN 4 % (13-37); MONOCYTES PERCENT MAN 3 % (4-12); SEG NEUTROPHILS PERCENT MAN 88 % (46-82)
[2023-12-04 07:36] LABS: ALBUMIN 1.5 g/dL (3.2-4.6); CREATININE 2.1 mg/dL (0.55-1.02)
[2023-12-04] MEDS: Cholecalciferol (Vitamin D3) 25 MCG Tab PO SCH (08:54)
[2023-12-04] MEDS: buPROPion 150 MG Tab.ER PO SCH (08:54)
[2023-12-04] MEDS: Sertraline 100 MG Tab PO SCH (08:54)
[2023-12-04] MEDS: Loperamide 2 MG Cap PO PRN ×2 (08:54→18:45)
[2023-12-04] MEDS: Rosuvastatin 5 MG Tab PO SCH (08:54)
[2023-12-04] MEDS: Ferrous Sulfate 325 MG Tab PO SCH (08:54)
[2023-12-04] MEDS: Multivitamin Tab PO SCH (08:54)
[2023-12-04] MEDS: Oxybutynin 5 MG Tab.ER PO SCH (08:54)
[2023-12-04] MEDS: Fluticasone NASAL Spray 16 GM Bottle NASBOTH SCH (08:55)
[2023-12-04] MEDS: Apixaban 2.5 MG Tab PO SCH ×2 (08:55→20:38)
[2023-12-04] MEDS: Carboxymethylcellulose Sodium 0.5% Ophth Soln 15 ML Bottle EYEBOTH SCH ×3 (08:55→20:38)
[2023-12-04] MEDS: Cefepime 1 GM Vial IVPUSH SCH (09:00)
[2023-12-04] MEDS: Carvedilol 12.5 MG Tab PO SCH (09:16)
[2023-12-04] MEDS: Gabapentin 100 MG Cap PO SCH (20:38)
[2023-12-05] MEDS: VANCOmycin 1 GM/200 ML 1 GM in Premix Bag 1 BAG IV SCH (02:09)
[2023-12-05] MEDS: Acetaminophen 325 MG Tab PO PRN (05:08)
[2023-12-05] MEDS: Pantoprazole 20 MG Tab, Delayed Release PO SCH ×2 (06:46→17:52)
[2023-12-05 07:21] LABS: HEMATOCRIT 35.3 % (34.2-48.2); HEMOGLOBIN 11.2 g/dL (11.4-15.5); MEAN CORPUSCULAR HEMOGLOBIN 29.2 pg (23.9-33.9); MEAN CORPUSCULAR HGB CONC 31.8 g/dL (31.9-34.8); MEAN CORPUSCULAR VOLUME 91.9 fL (76.7-100.5); MEAN PLATELET VOLUME 6.8 fL (7.1-12.4); PLATELET COUNT,PLT 520 x10(3)uL (151-488); RED BLOOD CELL COUNT 3.84 x10(6)uL (3.60-5.20); RED CELL DISTRIBUTION WIDTH 15.5 % (12.3-16.5); WHITE BLOOD CELL COUNT,WBC 13.9 x10-3/uL (3.0-10.3)
[2023-12-05 07:30] LABS: A/G RATIO 0.4; ALANINE AMINOTRANSFERASE,ALT 26 U/L (12-36); ALKALINE PHOSPHATASE 127 IU/L (56-112); ASPARTATE AMNIOTRANSFERASE,AST 16 IU/L (5-25); BILIRUBIN TOTAL 0.2 mg/dL (0.1-1.3); BLOOD UREA NITROGEN,BUN 35 mg/dL (7-18); BUN/CREATININE RATIO 20.6 (9-20); CALCIUM 7.5 mg/dL (8.6-10.2); CARBON DIOXIDE,CO2 16 mmol/L (21-32); CHLORIDE,CL 110 mmol/L (100-110); CREATININE 1.7 mg/dL (0.55-1.02); EST CRCL DRUG DOSING (CG) 21.49 mL/min; ESTIMATED GFR 32 mL/min (>60); GLUCOSE RANDOM 72 mg/dL (80-116); POTASSIUM,K 3.7 mmol/L (3.5-5.3); SODIUM,NA 137 mmol/L (135-145)
[2023-12-05 07:46] LABS: ALBUMIN 1.4 g/dL (3.2-4.6)
[2023-12-05 07:53] LABS: BAND PERCENT MAN 4 % (0-6); EOSINOPHILS PERCENT MAN 2 % (0-5); LYMPHOCYTES PERCENT MAN 6 % (13-37); MONOCYTES PERCENT MAN 2 % (4-12); SEG NEUTROPHILS PERCENT MAN 86 % (46-82)
[2023-12-05] MEDS: Fluticasone NASAL Spray 16 GM Bottle NASBOTH SCH (08:41)
[2023-12-05] MEDS: Ferrous Sulfate 325 MG Tab PO SCH (08:41)
[2023-12-05] MEDS: Apixaban 2.5 MG Tab PO SCH ×2 (08:41→21:14)
[2023-12-05] MEDS: Carboxymethylcellulose Sodium 0.5% Ophth Soln 15 ML Bottle EYEBOTH SCH ×3 (08:42→21:14)
[2023-12-05] MEDS: Multivitamin Tab PO SCH (08:42)
[2023-12-05] MEDS: Rosuvastatin 5 MG Tab PO SCH (08:42)
[2023-12-05] MEDS: Oxybutynin 5 MG Tab.ER PO SCH (08:42)
[2023-12-05] MEDS: Cholecalciferol (Vitamin D3) 25 MCG Tab PO SCH (08:43)
[2023-12-05] MEDS: Cefepime 1 GM Vial IVPUSH SCH (08:43)
[2023-12-05] MEDS: buPROPion 150 MG Tab.ER PO SCH (08:43)
[2023-12-05] MEDS: Sertraline 100 MG Tab PO SCH (08:43)
[2023-12-05] MEDS: Sodium Chloride 0.9% 10 ML Syringe FLUSH PRN (08:45)
[2023-12-05] MEDS: Midodrine 5 MG Tab PO SCH ×2 (11:50→17:51)
[2023-12-05] MEDS: Loperamide 2 MG Cap PO PRN (13:08)
[2023-12-05] MEDS: Acetaminophen/oxyCODONE 325-5 MG Tab PO PRN (13:08)
[2023-12-05] MEDS: Gabapentin 100 MG Cap PO SCH (21:14)
[2023-12-06 02:02] LABS: ALBUMIN - MG/DL 0.9 mg/dL; ALBUMIN/CREATININE RATIO 8 mg/g (0-30); CREATININE,URINE - PER VOLUME 109 mg/dL; HOURS COLLECTED Not Provided hr; TOTAL VOLUME Not Provided mL
[2023-12-06] MEDS: Midodrine 5 MG Tab PO SCH ×3 (06:34→17:20)
[2023-12-06] MEDS: Pantoprazole 20 MG Tab, Delayed Release PO SCH ×2 (06:34→17:20)
[2023-12-06 07:06] LABS: HEMATOCRIT 36.3 % (34.2-48.2); HEMOGLOBIN 11.9 g/dL (11.4-15.5); MEAN CORPUSCULAR HEMOGLOBIN 29.8 pg (23.9-33.9); MEAN CORPUSCULAR HGB CONC 32.8 g/dL (31.9-34.8); MEAN CORPUSCULAR VOLUME 90.9 fL (76.7-100.5); PLATELET COUNT,PLT 601 x10(3)uL (151-488); RED BLOOD CELL COUNT 3.99 x10(6)uL (3.60-5.20); RED CELL DISTRIBUTION WIDTH 15.5 % (12.3-16.5); WHITE BLOOD CELL COUNT,WBC 12.8 x10-3/uL (3.0-10.3)
[2023-12-06 07:29] LABS: BAND PERCENT MAN 4 % (0-6); EOSINOPHILS PERCENT MAN 2 % (0-5); LYMPHOCYTES PERCENT MAN 5 % (13-37); MONOCYTES PERCENT MAN 2 % (4-12); SEG NEUTROPHILS PERCENT MAN 87 % (46-82)
[2023-12-06 07:33] LABS: A/G RATIO 0.4; ALANINE AMINOTRANSFERASE,ALT 36 U/L (12-36); ALKALINE PHOSPHATASE 139 IU/L (56-112); ASPARTATE AMNIOTRANSFERASE,AST 23 IU/L (5-25); BILIRUBIN TOTAL 0.2 mg/dL (0.1-1.3); BLOOD UREA NITROGEN,BUN 32 mg/dL (7-18); CALCIUM 7.9 mg/dL (8.6-10.2); CARBON DIOXIDE,CO2 17 mmol/L (21-32); CHLORIDE,CL 109 mmol/L (100-110); CREATININE 1.6 mg/dL (0.55-1.02); EST CRCL DRUG DOSING (CG) 22.83 mL/min; ESTIMATED GFR 34 mL/min (>60); GLUCOSE RANDOM 75 mg/dL (80-116); POTASSIUM,K 4.2 mmol/L (3.5-5.3); PROTEIN TOTAL,TP 5.4 g/dL (6.0-8.0); SODIUM,NA 138 mmol/L (135-145)
[2023-12-06 07:34] LABS: ALBUMIN 1.4 g/dL (3.2-4.6)
[2023-12-06] MEDS ORDERED: Albumin 25% 200 ML IV SCH (09:00)
[2023-12-06] MEDS: Apixaban 2.5 MG Tab PO SCH ×2 (09:01→20:23)
[2023-12-06] MEDS: Rosuvastatin 5 MG Tab PO SCH (09:01)
[2023-12-06] MEDS: Ferrous Sulfate 325 MG Tab PO SCH (09:01)
[2023-12-06] MEDS: Fluticasone NASAL Spray 16 GM Bottle NASBOTH SCH (09:02)
[2023-12-06] MEDS: Oxybutynin 5 MG Tab.ER PO SCH (09:03)
[2023-12-06] MEDS: Multivitamin Tab PO SCH (09:03)
[2023-12-06] MEDS: Carboxymethylcellulose Sodium 0.5% Ophth Soln 15 ML Bottle EYEBOTH SCH ×3 (09:03→20:23)
[2023-12-06] MEDS: buPROPion 150 MG Tab.ER PO SCH (09:04)
[2023-12-06] MEDS: Sertraline 100 MG Tab PO SCH (09:04)
[2023-12-06] MEDS: Cholecalciferol (Vitamin D3) 25 MCG Tab PO SCH (09:04)
[2023-12-06] MEDS: Sodium Chloride 0.9% 10 ML Syringe FLUSH PRN ×5 (09:08→19:02)
[2023-12-06] MEDS: Cefepime 1 GM Vial IVPUSH SCH (09:14)
[2023-12-06] MEDS: Albumin 25% 200 ML IV SCH ×2 (11:26→16:09)
[2023-12-06] MEDS: Loperamide 2 MG Cap PO PRN ×2 (12:51→18:59)
[2023-12-06] MEDS: VANCOmycin 1 GM/200 ML 1 GM in Premix Bag 1 BAG IV SCH (14:28)
[2023-12-06] MEDS: Acetaminophen/oxyCODONE 325-5 MG Tab PO PRN (18:58)
[2023-12-06] MEDS: Gabapentin 100 MG Cap PO SCH (20:23)
[2023-12-07] MEDS: Albumin 25% 200 ML IV SCH ×2 (00:11→00:30)
[2023-12-07] MEDS: Sodium Chloride 0.9% 10 ML Syringe FLUSH PRN (02:00)
[2023-12-07] MEDS: Pantoprazole 20 MG Tab, Delayed Release PO SCH ×2 (06:52→17:01)
[2023-12-07] MEDS: Midodrine 5 MG Tab PO SCH ×3 (06:52→17:01)
[2023-12-07 07:00] LABS: HEMATOCRIT 26.7 % (34.2-48.2); HEMOGLOBIN 8.9 g/dL (11.4-15.5); MEAN CORPUSCULAR HEMOGLOBIN 30.4 pg (23.9-33.9); MEAN CORPUSCULAR HGB CONC 33.6 g/dL (31.9-34.8); MEAN CORPUSCULAR VOLUME 90.6 fL (76.7-100.5); PLATELET COUNT,PLT 406 x10(3)uL (151-488); RED BLOOD CELL COUNT 2.94 x10(6)uL (3.60-5.20); RED CELL DISTRIBUTION WIDTH 15.3 % (12.3-16.5); WHITE BLOOD CELL COUNT,WBC 11.6 x10-3/uL (3.0-10.3)
[2023-12-07 07:13] LABS: A/G RATIO 1.4; ALANINE AMINOTRANSFERASE,ALT 22 U/L (12-36); ALKALINE PHOSPHATASE 72 IU/L (56-112); ASPARTATE AMNIOTRANSFERASE,AST 14 IU/L (5-25); BILIRUBIN TOTAL 0.5 mg/dL (0.1-1.3); BLOOD UREA NITROGEN,BUN 28 mg/dL (7-18); BUN/CREATININE RATIO 21.5 (9-20); CALCIUM 8.1 mg/dL (8.6-10.2); CARBON DIOXIDE,CO2 16 mmol/L (21-32); CHLORIDE,CL 110 mmol/L (100-110); CREATININE 1.3 mg/dL (0.55-1.02); ESTIMATED GFR 44 mL/min (>60); GLUCOSE RANDOM 74 mg/dL (80-116); POTASSIUM,K 3.6 mmol/L (3.5-5.3); PROTEIN TOTAL,TP 5.1 g/dL (6.0-8.0); SODIUM,NA 139 mmol/L (135-145)
[2023-12-07 07:33] LABS: BAND PERCENT MAN 2 % (0-6); EOSINOPHILS PERCENT MAN 7 % (0-5); LYMPHOCYTES PERCENT MAN 7 % (13-37); MONOCYTES PERCENT MAN 3 % (4-12); SEG NEUTROPHILS PERCENT MAN 81 % (46-82)
[2023-12-07] MEDS: Apixaban 2.5 MG Tab PO SCH ×2 (08:49→20:00)
[2023-12-07] MEDS: Rosuvastatin 5 MG Tab PO SCH (08:49)
[2023-12-07] MEDS: Ferrous Sulfate 325 MG Tab PO SCH (08:50)
[2023-12-07] MEDS: Fluticasone NASAL Spray 16 GM Bottle NASBOTH SCH (08:50)
[2023-12-07] MEDS: Cefepime 1 GM Vial IVPUSH SCH (08:52)
[2023-12-07] MEDS: Sertraline 100 MG Tab PO SCH (08:53)
[2023-12-07] MEDS: Cholecalciferol (Vitamin D3) 25 MCG Tab PO SCH (08:53)
[2023-12-07] MEDS: Oxybutynin 5 MG Tab.ER PO SCH (08:53)
[2023-12-07] MEDS: Multivitamin Tab PO SCH (08:53)
[2023-12-07] MEDS: Carboxymethylcellulose Sodium 0.5% Ophth Soln 15 ML Bottle EYEBOTH SCH ×3 (08:54→20:00)
[2023-12-07] MEDS: buPROPion 150 MG Tab.ER PO SCH (08:54)
[2023-12-07] MEDS: Acetaminophen 325 MG Tab PO PRN ×2 (10:24→15:08)
[2023-12-07] MEDS: Acetaminophen/oxyCODONE 325-5 MG Tab PO PRN (17:04)
[2023-12-07] MEDS: Gabapentin 100 MG Cap PO SCH (20:00)
[2023-12-08] MEDS: VANCOmycin 1 GM/200 ML 1 GM in Premix Bag 1 BAG IV SCH (01:15)
[2023-12-08] MEDS: Pantoprazole 20 MG Tab, Delayed Release PO SCH (06:30)
[2023-12-08] MEDS: Midodrine 5 MG Tab PO SCH ×2 (06:30→11:37)
[2023-12-08 06:40] LABS: BLOOD UREA NITROGEN,BUN 27 mg/dL (7-18); BUN/CREATININE RATIO 22.5 (9-20); CALCIUM 7.9 mg/dL (8.6-10.2); CARBON DIOXIDE,CO2 15 mmol/L (21-32); CHLORIDE,CL 110 mmol/L (100-110); CREATININE 1.2 mg/dL (0.55-1.02); EST CRCL DRUG DOSING (CG) 30.44 mL/min; ESTIMATED GFR 48 mL/min (>60); GLUCOSE RANDOM 78 mg/dL (80-116); POTASSIUM,K 3.5 mmol/L (3.5-5.3); SODIUM,NA 137 mmol/L (135-145)
[2023-12-08] MEDS: Apixaban 2.5 MG Tab PO SCH (08:53)
[2023-12-08] MEDS: Ferrous Sulfate 325 MG Tab PO SCH (08:53)
[2023-12-08] MEDS: Rosuvastatin 5 MG Tab PO SCH (08:53)
[2023-12-08] MEDS: Carboxymethylcellulose Sodium 0.5% Ophth Soln 15 ML Bottle EYEBOTH SCH (08:54)
[2023-12-08] MEDS: Oxybutynin 5 MG Tab.ER PO SCH (08:54)
[2023-12-08] MEDS: Fluticasone NASAL Spray 16 GM Bottle NASBOTH SCH (08:54)
[2023-12-08] MEDS: Cholecalciferol (Vitamin D3) 25 MCG Tab PO SCH (08:54)
[2023-12-08] MEDS: Multivitamin Tab PO SCH (08:54)
[2023-12-08] MEDS: Sertraline 100 MG Tab PO SCH (08:55)
[2023-12-08] MEDS: buPROPion 150 MG Tab.ER PO SCH (08:55)
[2023-12-08] MEDS: Sodium Chloride 0.9% 10 ML Syringe FLUSH PRN (08:59)
[2023-12-08] MEDS: Cefepime 1 GM Vial IVPUSH SCH (09:11)
[2023-12-08] MEDS: Acetaminophen/oxyCODONE 325-5 MG Tab PO PRN (09:23)
[2023-12-08] MEDS: Loperamide 2 MG Cap PO PRN (09:24)
[2023-12-08 11:49] VITALS: BP 108/53; PULSE 100
== END 2023-12-08 12:35 | disposition home health service (06) | DRG 683 ==
LOC: FB.ED 14:35 → FB.MS 20:19
PROVIDERS: ADMIT Emergency Medicine; ATTEND Family Medicine
DX: N17.9 Acute kidney failure, unspecified (principal); E46 Unspecified protein-calorie malnutrition; I89.0 Lymphedema, not elsewhere classified; I87.8 Other specified disorders of veins; L03.116 Cellulitis of left lower limb; I13.0 Hypertensive heart and chronic kidney disease with heart failure and stage 1 through stage 4 chronic kidney disease, or unspecified chronic kidney disease; L97.929 Non-pressure chronic ulcer of unspecified part of left lower leg with unspecified severity; L97.919 Non-pressure chronic ulcer of unspecified part of right lower leg with unspecified severity; L03.113 Cellulitis of right upper limb; I48.20 Chronic atrial fibrillation, unspecified; I50.32 Chronic diastolic (congestive) heart failure; E88.09 Other disorders of plasma-protein metabolism, not elsewhere classified; E87.1 Hypo-osmolality and hyponatremia; I11.0 Hypertensive heart disease with heart failure; I50.9 Heart failure, unspecified; F33.1 Major depressive disorder, recurrent, moderate; L03.115 Cellulitis of right lower limb; E83.42 Hypomagnesemia; E87.0 Hyperosmolality and hypernatremia; D64.9 Anemia, unspecified; Z51.5 Encounter for palliative care; E86.0 Dehydration; I25.10 Atherosclerotic heart disease of native coronary artery without angina pectoris; E78.00 Pure hypercholesterolemia, unspecified; G47.33 Obstructive sleep apnea (adult) (pediatric); K21.9 Gastro-esophageal reflux disease without esophagitis; E78.5 Hyperlipidemia, unspecified; I27.20 Pulmonary hypertension, unspecified; F98.8 Other specified behavioral and emotional disorders with onset usually occurring in childhood and adolescence; F90.9 Attention-deficit hyperactivity disorder, unspecified type; F41.9 Anxiety disorder, unspecified; D50.9 Iron deficiency anemia, unspecified; Z96.659 Presence of unspecified artificial knee joint; N18.32 Chronic kidney disease, stage 3b; L98.491 Non-pressure chronic ulcer of skin of other sites limited to breakdown of skin; D63.1 Anemia in chronic kidney disease; I95.2 Hypotension due to drugs; T50.995A Adverse effect of other drugs, medicaments and biological substances, initial encounter; I87.2 Venous insufficiency (chronic) (peripheral); Z90.89 Acquired absence of other organs; Z90.710 Acquired absence of both cervix and uterus; Z86.73 Personal history of transient ischemic attack (TIA), and cerebral infarction without residual deficits; Z88.8 Allergy status to other drugs, medicaments and biological substances; Z79.01 Long term (current) use of anticoagulants; Z79.899 Other long term (current) drug therapy; Z90.49 Acquired absence of other specified parts of digestive tract; Z98.890 Other specified postprocedural states
CPT/HCPCS: 0240U; 36410; 36415; 71045; 80048; 80053; 80202; 81001; 82043; 82570; 83605; 83880; 84484; 85025; 85610; 85730; 86140; 87040; 87086; 93005; 93010; 97161-GP; 97165-GO; 97530-GP; 97535-GO; 99285; A9270-GY; J0692; J2543; J3370; J3490; J7030; P9045; P9047; U0002

== ENCOUNTER 2023-12-18 14:21 | Inpatient (IN) | payer MEDICARE ==
[2023-12-18] MEDS ORDERED: Sodium Chloride 0.9% 10 ML Syringe FLUSH PRN (15:17)
[2023-12-18 15:42] LABS: HEMATOCRIT 32.6 % (34.2-48.2); HEMOGLOBIN 10.4 g/dL (11.4-15.5); MEAN CORPUSCULAR HEMOGLOBIN 29.5 pg (23.9-33.9); MEAN CORPUSCULAR HGB CONC 32.1 g/dL (31.9-34.8); MEAN CORPUSCULAR VOLUME 91.8 fL (76.7-100.5); MEAN PLATELET VOLUME 7.1 fL (7.1-12.4); PLATELET COUNT,PLT 517 x10(3)uL (151-488); RED BLOOD CELL COUNT 3.55 x10(6)uL (3.60-5.20); WHITE BLOOD CELL COUNT,WBC 12.4 x10-3/uL (3.0-10.3)
[2023-12-18 15:49] LABS: A/G RATIO 0.7; ALANINE AMINOTRANSFERASE,ALT 38 U/L (12-36); ALBUMIN 2.3 g/dL (3.2-4.6); ALKALINE PHOSPHATASE 94 IU/L (56-112); ASPARTATE AMNIOTRANSFERASE,AST 21 IU/L (5-25); BILIRUBIN TOTAL 0.3 mg/dL (0.1-1.3); BLOOD UREA NITROGEN,BUN 19 mg/dL (7-18); CALCIUM 8.3 mg/dL (8.6-10.2); CARBON DIOXIDE,CO2 20 mmol/L (21-32); CHLORIDE,CL 107 mmol/L (100-110); CREATININE 1.9 mg/dL (0.55-1.02); ESTIMATED GFR 28 mL/min (>60); GLUCOSE RANDOM 84 mg/dL (80-116); POTASSIUM,K 3.6 mmol/L (3.5-5.3); PROTEIN TOTAL,TP 5.8 g/dL (6.0-8.0); SODIUM,NA 136 mmol/L (135-145)
[2023-12-18 15:51] LABS: EOSINOPHILS PERCENT MAN 3 % (0-5); LYMPHOCYTES PERCENT MAN 6 % (13-37); MONOCYTES PERCENT MAN 6 % (4-12); SEG NEUTROPHILS PERCENT MAN 85 % (46-82)
[2023-12-18] MEDS: oxyCODONE 5 MG Tab PO PRN (16:01)
[2023-12-18] MEDS ORDERED: Sennosides/Docusate Sodium 50-8.6 MG Tab PO PRN (16:44)
[2023-12-18] MEDS ORDERED: Acetaminophen/Codeine 300-30 MG Tab PO PRN (16:44)
[2023-12-18] MEDS ORDERED: Acetaminophen 325 MG Tab PO PRN (16:44)
[2023-12-18] MEDS ORDERED: Loperamide 2 MG Cap PO PRN (16:44)
[2023-12-18 18:27] LABS: BILIRUBIN,URINE NEGATIVE (NEGATIVE); GLUCOSE,URINE NORMAL (NORMAL); KETONES,URINE NEGATIVE (NEGATIVE); LEUKOCYTE ESTERASE,URINE NEGATIVE (NEGATIVE); NITRITE,URINE NEGATIVE (NEGATIVE); OCCULT BLOOD,URINE NEGATIVE (NEGATIVE); PROTEIN,URINE NEGATIVE (NEGATIVE); UROBILINOGEN,URINE NORMAL (NEGATIVE)
[2023-12-18 18:31] LABS: APPEARANCE,URINE CLEAR (CLEAR); BACTERIA,URINE FEW (NS); COLOR,URINE YELLOW (YELLOW); RBC,URINE 0-5 (0-5); SQUAMOUS EPITHELIAL CELLS,UR FEW (NS,R,O); WBC,URINE 0-5 (0-5)
[2023-12-18] MEDS: Midodrine 5 MG Tab PO SCH (20:06)
[2023-12-18] MEDS: Pantoprazole 20 MG Tab, Delayed Release PO SCH (20:06)
[2023-12-18] MEDS: Apixaban 5 MG Tab PO SCH (21:55)
[2023-12-18] MEDS: Gabapentin 100 MG Cap PO SCH (21:55)
[2023-12-18] MEDS: Acetaminophen 500 MG Tab PO SCH (21:56)
[2023-12-18] MEDS: Carboxymethylcellulose Sodium 0.5% Ophth Soln 15 ML Bottle EYEBOTH SCH (21:59)
[2023-12-19] MEDS: oxyCODONE 5 MG Tab PO PRN ×3 (03:30→21:56)
[2023-12-19] MEDS: Pantoprazole 20 MG Tab, Delayed Release PO SCH ×2 (06:58→17:20)
[2023-12-19] MEDS: Midodrine 5 MG Tab PO SCH ×3 (06:58→17:20)
[2023-12-19] MEDS: Apixaban 5 MG Tab PO SCH ×2 (09:57→21:48)
[2023-12-19] MEDS: Furosemide 20 MG Tab PO SCH (09:57)
[2023-12-19] MEDS: Oxybutynin 5 MG Tab.ER PO SCH (09:57)
[2023-12-19] MEDS: Multivitamin Tab PO SCH (09:57)
[2023-12-19] MEDS: Rosuvastatin 5 MG Tab PO SCH (09:57)
[2023-12-19] MEDS: Cholecalciferol (Vitamin D3) 25 MCG Tab PO SCH (09:57)
[2023-12-19] MEDS: Ferrous Sulfate 325 MG Tab PO SCH (09:57)
[2023-12-19] MEDS: Acetaminophen 500 MG Tab PO SCH ×3 (09:58→21:48)
[2023-12-19] MEDS: Sertraline 100 MG Tab PO SCH (09:58)
[2023-12-19] MEDS: Carboxymethylcellulose Sodium 0.5% Ophth Soln 15 ML Bottle EYEBOTH SCH ×3 (09:59→21:48)
[2023-12-19] MEDS: Fluticasone NASAL Spray 16 GM Bottle NASBOTH SCH (09:59)
[2023-12-19] MEDS: buPROPion 150 MG Tab.ER PO SCH (17:19)
[2023-12-19] MEDS: Gabapentin 100 MG Cap PO SCH (21:48)
[2023-12-20] MEDS: oxyCODONE 5 MG Tab PO PRN ×2 (06:39→17:41)
[2023-12-20] MEDS: Midodrine 5 MG Tab PO SCH ×3 (06:41→17:38)
[2023-12-20] MEDS: Pantoprazole 20 MG Tab, Delayed Release PO SCH ×2 (06:41→17:38)
[2023-12-20 07:09] LABS: BASOPHILS PERCENT AUTO 0.5 % (0.2-1.5); EOSINOPHILS ABSOLUTE AUTO 0.7 x10-3/uL (0.0-0.8); EOSINOPHILS PERCENT AUTO 9.4 % (0.6-8.1); HEMATOCRIT 28.1 % (34.2-48.2); HEMOGLOBIN 9.2 g/dL (11.4-15.5); LYMPHOCYTES ABSOLUTE AUTO 0.7 x10-3/uL (1.0-4.4); MEAN CORPUSCULAR HEMOGLOBIN 30.2 pg (23.9-33.9); MEAN CORPUSCULAR HGB CONC 32.8 g/dL (31.9-34.8); MEAN CORPUSCULAR VOLUME 92.1 fL (76.7-100.5); MEAN PLATELET VOLUME 7.4 fL (7.1-12.4); MONOCYTES ABSOLUTE AUTO 0.6 x10-3/uL (0.3-1.0); MONOCYTES PERCENT AUTO 7.2 % (4.4-15.7); NEUTROPHILS ABSOLUTE AUTO 5.8 x10-3/uL (1.5-6.3); NEUTROPHILS PERCENT AUTO 73.9 % (30.8-76.2); PLATELET COUNT,PLT 417 x10(3)uL (151-488); RED BLOOD CELL COUNT 3.05 x10(6)uL (3.60-5.20); RED CELL DISTRIBUTION WIDTH 16.2 % (12.3-16.5); WHITE BLOOD CELL COUNT,WBC 7.8 x10-3/uL (3.0-10.3)
[2023-12-20 07:24] LABS: BLOOD UREA NITROGEN,BUN 20 mg/dL (7-18); BUN/CREATININE RATIO 10.5 (9-20); CALCIUM 7.9 mg/dL (8.6-10.2); CARBON DIOXIDE,CO2 20 mmol/L (21-32); CHLORIDE,CL 107 mmol/L (100-110); CREATININE 1.9 mg/dL (0.55-1.02); EST CRCL DRUG DOSING (CG) 19.22 mL/min; ESTIMATED GFR 28 mL/min (>60); GLUCOSE RANDOM 81 mg/dL (80-116); POTASSIUM,K 3.8 mmol/L (3.5-5.3); SODIUM,NA 137 mmol/L (135-145)
[2023-12-20] MEDS: Cholecalciferol (Vitamin D3) 25 MCG Tab PO SCH (09:16)
[2023-12-20] MEDS: Sertraline 100 MG Tab PO SCH (09:16)
[2023-12-20] MEDS: Furosemide 20 MG Tab PO SCH (09:16)
[2023-12-20] MEDS: Rosuvastatin 5 MG Tab PO SCH (09:16)
[2023-12-20] MEDS: Multivitamin Tab PO SCH (09:16)
[2023-12-20] MEDS: Oxybutynin 5 MG Tab.ER PO SCH (09:16)
[2023-12-20] MEDS: Carboxymethylcellulose Sodium 0.5% Ophth Soln 15 ML Bottle EYEBOTH SCH ×3 (09:17→21:48)
[2023-12-20] MEDS: Fluticasone NASAL Spray 16 GM Bottle NASBOTH SCH (09:17)
[2023-12-20] MEDS: Apixaban 5 MG Tab PO SCH ×2 (09:17→21:47)
[2023-12-20] MEDS: Ferrous Sulfate 325 MG Tab PO SCH (09:17)
[2023-12-20] MEDS: Acetaminophen 500 MG Tab PO SCH ×3 (09:25→21:47)
[2023-12-20] MEDS: buPROPion 150 MG Tab.ER PO SCH (11:00)
[2023-12-20] MEDS: Triamcinolone Acetonide 0.1% Crm 15 GM Tube TOP SCH ×2 (14:56→21:50)
[2023-12-20] MEDS: Gabapentin 100 MG Cap PO SCH (21:55)
[2023-12-21] MEDS: Pantoprazole 20 MG Tab, Delayed Release PO SCH ×2 (06:49→17:11)
[2023-12-21] MEDS: Midodrine 5 MG Tab PO SCH ×3 (06:49→17:11)
[2023-12-21] MEDS: Ferrous Sulfate 325 MG Tab PO SCH (10:11)
[2023-12-21] MEDS: Carboxymethylcellulose Sodium 0.5% Ophth Soln 15 ML Bottle EYEBOTH SCH ×3 (10:11→22:17)
[2023-12-21] MEDS: Oxybutynin 5 MG Tab.ER PO SCH (10:11)
[2023-12-21] MEDS: Apixaban 5 MG Tab PO SCH ×2 (10:11→22:19)
[2023-12-21] MEDS: Rosuvastatin 5 MG Tab PO SCH (10:11)
[2023-12-21] MEDS: Fluticasone NASAL Spray 16 GM Bottle NASBOTH SCH (10:11)
[2023-12-21] MEDS: Furosemide 20 MG Tab PO SCH (10:11)
[2023-12-21] MEDS: Multivitamin Tab PO SCH (10:12)
[2023-12-21] MEDS: Triamcinolone Acetonide 0.1% Crm 15 GM Tube TOP SCH ×2 (10:12→20:00)
[2023-12-21] MEDS: Acetaminophen 500 MG Tab PO SCH ×3 (10:13→22:18)
[2023-12-21] MEDS: buPROPion 150 MG Tab.ER PO SCH (10:15)
[2023-12-21] MEDS: Cholecalciferol (Vitamin D3) 25 MCG Tab PO SCH (10:16)
[2023-12-21] MEDS: Sertraline 100 MG Tab PO SCH (10:16)
[2023-12-21] MEDS: oxyCODONE 5 MG Tab PO PRN (19:56)
[2023-12-21] MEDS: Gabapentin 100 MG Cap PO SCH (22:22)
[2023-12-22] MEDS: Pantoprazole 20 MG Tab, Delayed Release PO SCH (08:04)
[2023-12-22] MEDS: Midodrine 5 MG Tab PO SCH ×2 (08:04→12:34)
[2023-12-22] MEDS: oxyCODONE 5 MG Tab PO PRN (09:03)
[2023-12-22] MEDS: Rosuvastatin 5 MG Tab PO SCH (09:12)
[2023-12-22] MEDS: Ferrous Sulfate 325 MG Tab PO SCH (09:12)
[2023-12-22] MEDS: Furosemide 20 MG Tab PO SCH (09:12)
[2023-12-22] MEDS: Apixaban 5 MG Tab PO SCH (09:12)
[2023-12-22] MEDS: Fluticasone NASAL Spray 16 GM Bottle NASBOTH SCH (09:12)
[2023-12-22] MEDS: Cholecalciferol (Vitamin D3) 25 MCG Tab PO SCH (09:13)
[2023-12-22] MEDS: Sertraline 100 MG Tab PO SCH (09:13)
[2023-12-22] MEDS: Multivitamin Tab PO SCH (09:13)
[2023-12-22] MEDS: Triamcinolone Acetonide 0.1% Crm 15 GM Tube TOP SCH (09:13)
[2023-12-22] MEDS: Acetaminophen 500 MG Tab PO SCH (09:13)
[2023-12-22] MEDS: Oxybutynin 5 MG Tab.ER PO SCH (09:13)
[2023-12-22] MEDS: buPROPion 150 MG Tab.ER PO SCH (09:14)
[2023-12-22] MEDS: Carboxymethylcellulose Sodium 0.5% Ophth Soln 15 ML Bottle EYEBOTH SCH (09:14)
[2023-12-22 13:56] VITALS: BP 104/55; PULSE 80
== END 2023-12-22 14:00 | disposition swing bed (61) | DRG 551 ==
LOC: FB.MS 14:21 → UNDOADMIN 14:21 → FB.MS 15:27
PROVIDERS: ADMIT Family Medicine; ATTEND Family Medicine
DX: S32.110A Nondisplaced Zone I fracture of sacrum, initial encounter for closed fracture (principal); S32.414A Nondisplaced fracture of anterior wall of right acetabulum, initial encounter for closed fracture; S32.030A Wedge compression fracture of third lumbar vertebra, initial encounter for closed fracture; S32.511A Fracture of superior rim of right pubis, initial encounter for closed fracture; I87.339 Chronic venous hypertension (idiopathic) with ulcer and inflammation of unspecified lower extremity; N18.4 Chronic kidney disease, stage 4 (severe); I13.0 Hypertensive heart and chronic kidney disease with heart failure and stage 1 through stage 4 chronic kidney disease, or unspecified chronic kidney disease; Z51.5 Encounter for palliative care; K52.9 Noninfective gastroenteritis and colitis, unspecified; L29.9 Pruritus, unspecified; W01.0XXA Fall on same level from slipping, tripping and stumbling without subsequent striking against object, initial encounter; I48.91 Unspecified atrial fibrillation; E78.00 Pure hypercholesterolemia, unspecified; I50.9 Heart failure, unspecified; G47.33 Obstructive sleep apnea (adult) (pediatric); K21.9 Gastro-esophageal reflux disease without esophagitis; E78.5 Hyperlipidemia, unspecified; M81.0 Age-related osteoporosis without current pathological fracture; Z96.659 Presence of unspecified artificial knee joint; F90.9 Attention-deficit hyperactivity disorder, unspecified type; F41.9 Anxiety disorder, unspecified; F32.A Depression, unspecified; F98.8 Other specified behavioral and emotional disorders with onset usually occurring in childhood and adolescence; D50.9 Iron deficiency anemia, unspecified; Z90.710 Acquired absence of both cervix and uterus; Z79.899 Other long term (current) drug therapy; Z86.73 Personal history of transient ischemic attack (TIA), and cerebral infarction without residual deficits; Z88.8 Allergy status to other drugs, medicaments and biological substances; Z79.01 Long term (current) use of anticoagulants; Z98.84 Bariatric surgery status; Z90.49 Acquired absence of other specified parts of digestive tract; Z98.890 Other specified postprocedural states
CPT/HCPCS: 36415; 72192; 80048; 80053; 81001; 85025; 97110-GO; 97165-GO; 99222; 99232; A9270-GY

== ENCOUNTER 2023-12-22 12:27 | Inpatient (IN) | payer MEDICARE, MEDICAID ==
[2023-12-22] MEDS ORDERED: Sennosides/Docusate Sodium 50-8.6 MG Tab PO PRN (12:40)
[2023-12-22] MEDS: Carboxymethylcellulose Sodium 0.5% Ophth Soln 15 ML Bottle EYEBOTH SCH (14:08)
[2023-12-22] MEDS: oxyCODONE 5 MG Tab PO PRN (14:08)
[2023-12-22] MEDS: Acetaminophen 500 MG Tab PO SCH (14:09)
[2023-12-22] MEDS: Midodrine 5 MG Tab PO SCH (18:06)
[2023-12-22] MEDS: Pantoprazole 20 MG Tab, Delayed Release PO SCH (18:06)
[2023-12-22] MEDS ORDERED: Triamcinolone Acetonide 0.1% Crm 15 GM Tube TOP SCH (21:00)
[2023-12-22] MEDS: Gabapentin 100 MG Cap PO SCH (21:06)
[2023-12-22] MEDS: Apixaban 5 MG Tab PO SCH (21:06)
[2023-12-23] MEDS: Oxybutynin 5 MG Tab.ER PO SCH (09:07)
[2023-12-23] MEDS: Ferrous Sulfate 325 MG Tab PO SCH (09:08)
[2023-12-23] MEDS: Cholecalciferol (Vitamin D3) 25 MCG Tab PO SCH (09:08)
[2023-12-23] MEDS: Furosemide 20 MG Tab PO SCH (09:08)
[2023-12-23] MEDS: Rosuvastatin 5 MG Tab PO SCH (09:08)
[2023-12-23] MEDS: Fluticasone NASAL Spray 16 GM Bottle NASBOTH SCH (09:08)
[2023-12-23] MEDS: Sertraline 100 MG Tab PO SCH (09:08)
[2023-12-23] MEDS: buPROPion 150 MG Tab.ER PO SCH (09:09)
[2023-12-23] MEDS: Multivitamin Tab PO SCH (09:09)
[2023-12-23] MEDS: Triamcinolone Acetonide 0.1% Crm 15 GM Tube TOP PRN (20:43)
[2023-12-25] MEDS: Loperamide 2 MG Cap PO PRN (13:24)
[2023-12-27] MEDS: Nystatin Topical Powder 15 GM Bottle TOP SCH (23:53)
[2023-12-28] MEDS: Nystatin Topical Powder 15 GM Bottle TOP SCH (11:19)
[2023-12-31] MEDS: Loratadine 10 MG Tab PO SCH (11:43)
[2023-12-31] MEDS: oxyCODONE 5 MG Tab PO PRN (16:16)
[2024-01-01] MEDS: Metolazone 5 MG Tab PO ONE (11:06)
[2024-01-03] MEDS: Ondansetron 4 MG Tab.DIS PO PRN (20:28)
[2024-01-04 06:25] LABS: MEAN CORPUSCULAR HEMOGLOBIN 30.6 pg (23.9-33.9); MEAN CORPUSCULAR HGB CONC 33.2 g/dL (31.9-34.8); MEAN PLATELET VOLUME 6.8 fL (7.1-12.4); PLATELET COUNT,PLT 523 x10(3)uL (151-488); RED BLOOD CELL COUNT 2.94 x10(6)uL (3.60-5.20); RED CELL DISTRIBUTION WIDTH 15.2 % (12.3-16.5); WHITE BLOOD CELL COUNT,WBC 8.3 x10-3/uL (3.0-10.3)
[2024-01-04 06:29] LABS: BLOOD UREA NITROGEN,BUN 17 mg/dL (7-18); CALCIUM 7.9 mg/dL (8.6-10.2); CARBON DIOXIDE,CO2 27 mmol/L (21-32); CHLORIDE,CL 107 mmol/L (100-110); EST CRCL DRUG DOSING (CG) 36.53 mL/min; ESTIMATED GFR 60 mL/min (>60); GLUCOSE RANDOM 85 mg/dL (80-116); SODIUM,NA 141 mmol/L (135-145)
[2024-01-04 06:40] LABS: BASOPHILS PERCENT MAN 1 % (0-2); EOSINOPHILS PERCENT MAN 13 % (0-5); LYMPHOCYTES PERCENT MAN 14 % (13-37); MONOCYTES PERCENT MAN 2 % (4-12); SEG NEUTROPHILS PERCENT MAN 70 % (46-82)
[2024-01-04] MEDS: Potassium Chloride 20 MEQ Tab.ER PO SCH (08:26)
[2024-01-05 10:08] VITALS: BP 111/57; PULSE 92
== END 2024-01-05 10:43 | DRG 560 ==
LOC: FB.MS 12:27
PROVIDERS: ADMIT Family Medicine; ATTEND Family Medicine
DX: S32.414D Nondisplaced fracture of anterior wall of right acetabulum, subsequent encounter for fracture with routine healing (principal); F33.1 Major depressive disorder, recurrent, moderate; I13.0 Hypertensive heart and chronic kidney disease with heart failure and stage 1 through stage 4 chronic kidney disease, or unspecified chronic kidney disease; I87.313 Chronic venous hypertension (idiopathic) with ulcer of bilateral lower extremity; L97.829 Non-pressure chronic ulcer of other part of left lower leg with unspecified severity; L97.819 Non-pressure chronic ulcer of other part of right lower leg with unspecified severity; N17.9 Acute kidney failure, unspecified; S32.030D Wedge compression fracture of third lumbar vertebra, subsequent encounter for fracture with routine healing; S32.110D Nondisplaced Zone I fracture of sacrum, subsequent encounter for fracture with routine healing; R53.81 Other malaise; I48.0 Paroxysmal atrial fibrillation; I25.10 Atherosclerotic heart disease of native coronary artery without angina pectoris; E78.00 Pure hypercholesterolemia, unspecified; I50.9 Heart failure, unspecified; G47.30 Sleep apnea, unspecified; K21.9 Gastro-esophageal reflux disease without esophagitis; F41.9 Anxiety disorder, unspecified; M81.0 Age-related osteoporosis without current pathological fracture; N18.32 Chronic kidney disease, stage 3b; D63.1 Anemia in chronic kidney disease; E87.6 Hypokalemia; I95.9 Hypotension, unspecified; Z88.8 Allergy status to other drugs, medicaments and biological substances; Z79.899 Other long term (current) drug therapy; Z79.01 Long term (current) use of anticoagulants; Z90.710 Acquired absence of both cervix and uterus; Z86.73 Personal history of transient ischemic attack (TIA), and cerebral infarction without residual deficits; Z90.89 Acquired absence of other organs; Z90.49 Acquired absence of other specified parts of digestive tract; Z96.659 Presence of unspecified artificial knee joint; Z90.10 Acquired absence of unspecified breast and nipple; Z98.84 Bariatric surgery status; W19.XXXD Unspecified fall, subsequent encounter
CPT/HCPCS: 36415; 80048; 83880; 85025; 93971-LT; 94150; 97110-GO; 97110-GP; 97124-GP; 97140-GP; 97161-GP; 97530-GO; 97530-GP; 97535-GO; 97542-GO; 99305; 99309; 99316; A9270-GY; Q0162; U0002

== ENCOUNTER 2024-03-15 13:03 | Inpatient (IN) | payer MEDICARE, MEDICAID ==
[2024-03-15] MEDS: Sodium Chloride 0.9% 1,000 ML IV ONE (14:17)
[2024-03-15 14:28] LABS: BASOPHILS ABSOLUTE AUTO 0.1 x10-3/uL (0.0-0.1); BLOOD UREA NITROGEN,BUN 29 mg/dL (7-18); BUN/CREATININE RATIO 20.7 (9-20); CALCIUM 8.6 mg/dL (8.6-10.2); CARBON DIOXIDE,CO2 20 mmol/L (21-32); CHLORIDE,CL 108 mmol/L (100-110); CREATININE 1.4 mg/dL (0.55-1.02); EOSINOPHILS ABSOLUTE AUTO 0.4 x10-3/uL (0.0-0.8); EST CRCL DRUG DOSING (CG) 25.71 mL/min; ESTIMATED GFR 40 mL/min (>60); GLUCOSE RANDOM 87 mg/dL (80-116); LYMPHOCYTES ABSOLUTE AUTO 0.8 x10-3/uL (1.0-4.4); MEAN CORPUSCULAR HEMOGLOBIN 29.8 pg (23.9-33.9); POTASSIUM,K 4.3 mmol/L (3.5-5.3); SODIUM,NA 140 mmol/L (135-145)
[2024-03-15 14:31] LABS: BASOPHILS PERCENT AUTO 1.2 % (0.2-1.5); EOSINOPHILS PERCENT AUTO 5.2 % (0.6-8.1); HEMATOCRIT 34.1 % (34.2-48.2); LYMPHOCYTES PERCENT AUTO 11.2 % (18.4-52.1); MEAN CORPUSCULAR HGB CONC 32.4 g/dL (31.9-34.8); MEAN CORPUSCULAR VOLUME 92.2 fL (76.7-100.5); MEAN PLATELET VOLUME 7.6 fL (7.1-12.4); MONOCYTES ABSOLUTE AUTO 0.6 x10-3/uL (0.3-1.0); MONOCYTES PERCENT AUTO 8.3 % (4.4-15.7); NEUTROPHILS ABSOLUTE AUTO 5.2 x10-3/uL (1.5-6.3); NEUTROPHILS PERCENT AUTO 74.1 % (30.8-76.2); PLATELET COUNT,PLT 404 x10(3)uL (151-488); RED BLOOD CELL COUNT 3.69 x10(6)uL (3.60-5.20); RED CELL DISTRIBUTION WIDTH 13.8 % (12.3-16.5)
[2024-03-15 14:34] LABS: A/G RATIO 0.7; ALANINE AMINOTRANSFERASE,ALT 63 U/L (12-36); ALBUMIN 3.1 g/dL (3.2-4.6); ALKALINE PHOSPHATASE 121 IU/L (56-112); ASPARTATE AMNIOTRANSFERASE,AST 64 IU/L (5-25); BILIRUBIN TOTAL 0.2 mg/dL (0.1-1.3); PROTEIN TOTAL,TP 7.3 g/dL (6.0-8.0)
[2024-03-15 14:37] LABS: TROPONIN I 6.9 pg/mL (4.0-60.3)
[2024-03-15 14:38] LABS: C-REACTIVE PROTEIN < 0.50 mg/dL (<0.50)
[2024-03-15 14:41] LABS: BILIRUBIN,URINE NEGATIVE (NEGATIVE); GLUCOSE,URINE NORMAL (NORMAL); KETONES,URINE NEGATIVE (NEGATIVE); LEUKOCYTE ESTERASE,URINE NEGATIVE (NEGATIVE); NITRITE,URINE NEGATIVE (NEGATIVE); OCCULT BLOOD,URINE NEGATIVE (NEGATIVE); PROTEIN,URINE NEGATIVE (NEGATIVE); UROBILINOGEN,URINE NORMAL (NEGATIVE)
[2024-03-15 14:57] LABS: INFLUENZA A NAA NEGATIVE (NEGATIVE); INFLUENZA B NAA NEGATIVE (NEGATIVE); RESPIRATORY SYNCYTIAL VIR NAA NEGATIVE (NEGATIVE)
[2024-03-15 14:59] LABS: APPEARANCE,URINE CLEAR (CLEAR); BACTERIA,URINE FEW (NS); COLOR,URINE YELLOW (YELLOW); RBC,URINE 0-5 (0-5); SQUAMOUS EPITHELIAL CELLS,UR FEW (NS,R,O); WBC,URINE 0-5 (0-5)
[2024-03-15 14:59] LABS: CORONAVIRUS COVID-19 NAA NEGATIVE (NEGATIVE)
[2024-03-15] MEDS ORDERED: Vancomycin 1 GM SDV IV SCH ×2 (15:45→16:00)
[2024-03-15] MEDS: cefTRIAXone 1 GM Vial IVPUSH SCH (16:19)
[2024-03-15] MEDS: Sodium Chloride 0.9% 10 ML Syringe FLUSH PRN (16:21)
[2024-03-15] MEDS ORDERED: Loperamide 2 MG Cap PO PRN (17:08)
[2024-03-15] MEDS ORDERED: Bisacodyl 10 MG Supp RECTAL PRN (17:08)
[2024-03-15] MEDS ORDERED: Calcium Carbonate 500 MG Tab.Chew PO PRN (17:08)
[2024-03-15] MEDS ORDERED: Carboxymethylcellulose Sodium 0.5% Ophth Soln 15 ML Bottle EYEBOTH PRN (17:08)
[2024-03-15] MEDS ORDERED: Cocoa Butter/Phenylephrine Rectal Supp RECTAL PRN (17:08)
[2024-03-15] MEDS ORDERED: guaiFENesin 100 MG/5 ML Soln 5 ML UD Cup PO PRN (17:08)
[2024-03-15] MEDS ORDERED: Sennosides/Docusate Sodium 50-8.6 MG Tab PO PRN (17:08)
[2024-03-15] MEDS: VANCOmycin 1.5 GM/300 ML 1.5 GM in Premix Bag 1 BAG IV ONE (17:35)
[2024-03-15] MEDS: Midodrine 5 MG Tab PO SCH (19:13)
[2024-03-15] MEDS: Pantoprazole 40 MG Tab.CR PO SCH (19:13)
[2024-03-15] MEDS: Apixaban 5 MG Tab PO SCH (20:28)
[2024-03-15] MEDS: Gabapentin 100 MG Cap PO SCH (20:28)
[2024-03-15] MEDS: Carboxymethylcellulose Sodium 0.5% Ophth Soln 15 ML Bottle EYEBOTH SCH (20:29)
[2024-03-15] MEDS: Psyllium 0.52 GM Cap PO SCH (20:29)
[2024-03-15] MEDS: hydrOXYzine HCl 25 MG Tab PO SCH (20:29)
[2024-03-16] MEDS: oxyCODONE 5 MG Tab PO PRN (00:35)
[2024-03-16] MEDS: Acetaminophen 325 MG Tab PO PRN (03:50)
[2024-03-16 06:11] LABS: BASOPHILS ABSOLUTE AUTO 0.1 x10-3/uL (0.0-0.1); BASOPHILS PERCENT AUTO 0.8 % (0.2-1.5); EOSINOPHILS ABSOLUTE AUTO 0.3 x10-3/uL (0.0-0.8); EOSINOPHILS PERCENT AUTO 4.2 % (0.6-8.1); HEMATOCRIT 34.1 % (34.2-48.2); LYMPHOCYTES ABSOLUTE AUTO 0.6 x10-3/uL (1.0-4.4); LYMPHOCYTES PERCENT AUTO 7.3 % (18.4-52.1); MEAN CORPUSCULAR HEMOGLOBIN 29.7 pg (23.9-33.9); MEAN CORPUSCULAR HGB CONC 32.1 g/dL (31.9-34.8); MEAN CORPUSCULAR VOLUME 92.5 fL (76.7-100.5); MEAN PLATELET VOLUME 7.1 fL (7.1-12.4); MONOCYTES ABSOLUTE AUTO 0.6 x10-3/uL (0.3-1.0); MONOCYTES PERCENT AUTO 7.8 % (4.4-15.7); NEUTROPHILS ABSOLUTE AUTO 6.5 x10-3/uL (1.5-6.3); NEUTROPHILS PERCENT AUTO 79.9 % (30.8-76.2); PLATELET COUNT,PLT 404 x10(3)uL (151-488); RED BLOOD CELL COUNT 3.69 x10(6)uL (3.60-5.20); RED CELL DISTRIBUTION WIDTH 13.7 % (12.3-16.5); WHITE BLOOD CELL COUNT,WBC 8.1 x10-3/uL (3.0-10.3)
[2024-03-16 06:22] LABS: A/G RATIO 0.7; ALANINE AMINOTRANSFERASE,ALT 57 U/L (12-36); ALBUMIN 2.9 g/dL (3.2-4.6); ALKALINE PHOSPHATASE 117 IU/L (56-112); ASPARTATE AMNIOTRANSFERASE,AST 50 IU/L (5-25); BILIRUBIN TOTAL 0.3 mg/dL (0.1-1.3); BLOOD UREA NITROGEN,BUN 25 mg/dL (7-18); BUN/CREATININE RATIO 19.2 (9-20); CALCIUM 8.8 mg/dL (8.6-10.2); CARBON DIOXIDE,CO2 24 mmol/L (21-32); CHLORIDE,CL 107 mmol/L (100-110); CREATININE 1.3 mg/dL (0.55-1.02); EST CRCL DRUG DOSING (CG) 27.68 mL/min; ESTIMATED GFR 43 mL/min (>60); GLUCOSE RANDOM 89 mg/dL (80-116); PROTEIN TOTAL,TP 6.9 g/dL (6.0-8.0); SODIUM,NA 140 mmol/L (135-145)
[2024-03-16] MEDS ORDERED: Aluminum Hydroxide/Magnesium Hydroxide Susp 30 ML Cup PO PRN (07:39)
[2024-03-16] MEDS: Ferrous Sulfate 325 MG Tab PO SCH (09:13)
[2024-03-16] MEDS: Rosuvastatin 5 MG Tab PO SCH (09:13)
[2024-03-16] MEDS: Furosemide 20 MG Tab PO SCH (09:13)
[2024-03-16] MEDS: Fluticasone NASAL Spray 16 GM Bottle NASBOTH SCH (09:14)
[2024-03-16] MEDS: Potassium Chloride 10 MEQ Tab.ER PO SCH (09:15)
[2024-03-16] MEDS: Cholecalciferol (Vitamin D3) 25 MCG Tab PO SCH (09:21)
[2024-03-16] MEDS: Multivitamin Tab PO SCH (09:21)
[2024-03-16] MEDS: buPROPion 150 MG Tab.ER PO SCH (09:21)
[2024-03-16] MEDS: Sertraline 100 MG Tab PO SCH (09:22)
[2024-03-16] MEDS: CALAMINE TOP SCH (11:23)
[2024-03-16] MEDS: ZINC OXIDE TOP SCH (11:23)
[2024-03-16] MEDS: PETROLATUM WHITE TOP SCH (11:24)
[2024-03-16] MEDS: [UNRECOGNIZED DRUG - OTHER] TOP SCH (11:24)
[2024-03-16] MEDS: VANCOmycin 1 GM/200 ML 1 GM in Premix Bag 1 BAG IV SCH (16:52)
[2024-03-17 06:34] LABS: BASOPHILS PERCENT AUTO 0.6 % (0.2-1.5); EOSINOPHILS ABSOLUTE AUTO 0.5 x10-3/uL (0.0-0.8); EOSINOPHILS PERCENT AUTO 6.5 % (0.6-8.1); HEMATOCRIT 36.3 % (34.2-48.2); HEMOGLOBIN 11.4 g/dL (11.4-15.5); LYMPHOCYTES ABSOLUTE AUTO 0.7 x10-3/uL (1.0-4.4); LYMPHOCYTES PERCENT AUTO 9.6 % (18.4-52.1); MEAN CORPUSCULAR HEMOGLOBIN 29.2 pg (23.9-33.9); MEAN CORPUSCULAR HGB CONC 31.4 g/dL (31.9-34.8); MEAN CORPUSCULAR VOLUME 92.9 fL (76.7-100.5); MEAN PLATELET VOLUME 7.7 fL (7.1-12.4); MONOCYTES ABSOLUTE AUTO 0.6 x10-3/uL (0.3-1.0); MONOCYTES PERCENT AUTO 8.8 % (4.4-15.7); NEUTROPHILS ABSOLUTE AUTO 5.4 x10-3/uL (1.5-6.3); NEUTROPHILS PERCENT AUTO 74.5 % (30.8-76.2); PLATELET COUNT,PLT 419 x10(3)uL (151-488); RED BLOOD CELL COUNT 3.91 x10(6)uL (3.60-5.20); RED CELL DISTRIBUTION WIDTH 13.8 % (12.3-16.5); WHITE BLOOD CELL COUNT,WBC 7.2 x10-3/uL (3.0-10.3)
[2024-03-17 06:41] LABS: A/G RATIO 0.7; ALANINE AMINOTRANSFERASE,ALT 59 U/L (12-36); ALKALINE PHOSPHATASE 120 IU/L (56-112); ASPARTATE AMNIOTRANSFERASE,AST 46 IU/L (5-25); BILIRUBIN TOTAL 0.4 mg/dL (0.1-1.3); BLOOD UREA NITROGEN,BUN 21 mg/dL (7-18); BUN/CREATININE RATIO 17.5 (9-20); CALCIUM 9.1 mg/dL (8.6-10.2); CARBON DIOXIDE,CO2 23 mmol/L (21-32); CHLORIDE,CL 104 mmol/L (100-110); CREATININE 1.2 mg/dL (0.55-1.02); EST CRCL DRUG DOSING (CG) 29.99 mL/min; ESTIMATED GFR 48 mL/min (>60); GLUCOSE RANDOM 105 mg/dL (80-116); POTASSIUM,K 4.2 mmol/L (3.5-5.3); PROTEIN TOTAL,TP 7.3 g/dL (6.0-8.0); SODIUM,NA 140 mmol/L (135-145)
[2024-03-17] MEDS: [UNRECOGNIZED DRUG - OTHER] TOP PRN (08:59)
[2024-03-17] MEDS: PETROLATUM WHITE TOP PRN (08:59)
[2024-03-17 17:23] VITALS: BP 115/62; PULSE 115
[2024-03-18 18:13] LABS: HEPATITIS A ANTIBODY, IGM Positive (Negative); HEPATITIS B CORE ANTIBODY, IGM Negative (Negative); HEPATITIS B SURFACE ANTIGEN Negative (Negative); HEPATITIS C AB CIA INTERP Negative (Negative); HEPATITIS C ANTIBODY CIA INDEX <0.02 IV
== END 2024-03-17 19:35 | DRG 603 ==
LOC: FB.ED 13:03 → OBSVTOIN 15:37 → FB.MS 15:37
PROVIDERS: ADMIT Internal Medicine; ATTEND Internal Medicine
DX: R00.0 Tachycardia, unspecified (principal); L03.115 Cellulitis of right lower limb; N18.4 Chronic kidney disease, stage 4 (severe); I13.0 Hypertensive heart and chronic kidney disease with heart failure and stage 1 through stage 4 chronic kidney disease, or unspecified chronic kidney disease; I48.20 Chronic atrial fibrillation, unspecified; I50.32 Chronic diastolic (congestive) heart failure; I11.0 Hypertensive heart disease with heart failure; I50.9 Heart failure, unspecified; R78.81 Bacteremia; L03.116 Cellulitis of left lower limb; E83.42 Hypomagnesemia; K21.9 Gastro-esophageal reflux disease without esophagitis; I27.20 Pulmonary hypertension, unspecified; G43.909 Migraine, unspecified, not intractable, without status migrainosus; I25.10 Atherosclerotic heart disease of native coronary artery without angina pectoris; G47.30 Sleep apnea, unspecified; K52.9 Noninfective gastroenteritis and colitis, unspecified; M81.0 Age-related osteoporosis without current pathological fracture; F41.9 Anxiety disorder, unspecified; F32.A Depression, unspecified; E86.0 Dehydration; R39.2 Extrarenal uremia; E88.09 Other disorders of plasma-protein metabolism, not elsewhere classified; D63.1 Anemia in chronic kidney disease; R74.01 Elevation of levels of liver transaminase levels; E78.5 Hyperlipidemia, unspecified; S56.912A Strain of unspecified muscles, fascia and tendons at forearm level, left arm, initial encounter; Z96.659 Presence of unspecified artificial knee joint; I25.2 Old myocardial infarction; Z87.81 Personal history of (healed) traumatic fracture; Z86.73 Personal history of transient ischemic attack (TIA), and cerebral infarction without residual deficits; Z88.8 Allergy status to other drugs, medicaments and biological substances; Z79.899 Other long term (current) drug therapy; Z79.01 Long term (current) use of anticoagulants; Z85.828 Personal history of other malignant neoplasm of skin; Z90.89 Acquired absence of other organs; Z90.49 Acquired absence of other specified parts of digestive tract; Z98.890 Other specified postprocedural states; Z90.710 Acquired absence of both cervix and uterus; Z98.84 Bariatric surgery status; Z79.2 Long term (current) use of antibiotics; X58.XXXA Exposure to other specified factors, initial encounter
CPT/HCPCS: 0241U; 36415; 71045; 80053; 80074; 80202; 81001; 84484; 85025; 86140; 87040; 87077; 87186; 93005; 93010; 96361; 96365; 96366; 96374; 96375; 96376; 97161-GP; 99222; 99232; 99238; 99285-25; A9270-GY; G0378; J0696; J3370; J3490; J7030

== ENCOUNTER 2024-05-18 14:01 | Emergency (ER) | payer MEDICAID ==
[2024-05-18 15:03] LABS: BLOOD UREA NITROGEN,BUN 29 mg/dL (7-18); BUN/CREATININE RATIO 17.1 (9-20); CARBON DIOXIDE,CO2 19 mmol/L (21-32); CHLORIDE,CL 102 mmol/L (100-110); CREATININE 1.7 mg/dL (0.55-1.02); EST CRCL DRUG DOSING (CG) 21.17 mL/min; ESTIMATED GFR 31 mL/min (>60); GLUCOSE RANDOM 176 mg/dL (80-116); POTASSIUM,K 4.2 mmol/L (3.5-5.3); SODIUM,NA 137 mmol/L (135-145)
[2024-05-18 15:14] LABS: A/G RATIO 0.7; ALBUMIN 3.2 g/dL (3.2-4.6); ALKALINE PHOSPHATASE 189 IU/L (56-112); BILIRUBIN TOTAL 0.5 mg/dL (0.1-1.3); PROTEIN TOTAL,TP 7.7 g/dL (6.0-8.0)
[2024-05-18 15:16] LABS: ALANINE AMINOTRANSFERASE,ALT 328 U/L (12-36); ASPARTATE AMNIOTRANSFERASE,AST 382 IU/L (5-25)
[2024-05-18] MEDS: cefTRIAXone 1 GM Vial IVPUSH STA (15:26)
[2024-05-18] MEDS: Sodium Chloride 0.9% 10 ML Syringe FLUSH PRN (15:26)
[2024-05-18] MEDS: Sodium Chloride 0.9% 1,000 ML IV SCH (15:28)
[2024-05-18 15:30] LABS: TROPONIN I 11.7 pg/mL (4.0-60.3)
[2024-05-18 15:33] LABS: LACTIC ACID 2.8 mmol/L (0.4-2.0)
[2024-05-18 16:02] LABS: INFLUENZA A NAA NEGATIVE (NEGATIVE); INFLUENZA B NAA NEGATIVE (NEGATIVE); RESPIRATORY SYNCYTIAL VIR NAA NEGATIVE (NEGATIVE)
[2024-05-18 16:04] LABS: CORONAVIRUS COVID-19 NAA NEGATIVE (NEGATIVE)
[2024-05-18] MEDS: Piperacillin/Tazobactam 4.5 GM in Sodium Chloride 0.9% 100 ML IV ONE (16:30)
[2024-05-18] MEDS: VANCOmycin 1.5 GM/300 ML 1.5 GM in Premix Bag 1 BAG IV SCH (16:30)
[2024-05-18] MEDS: Iopamidol 755 Mg/ML 100 ML Bottle IV SCH (16:32)
[2024-05-18] MEDS: Ketorolac 30 MG/ML SDV IVPUSH STA (16:33)
[2024-05-18] MEDS: Acetaminophen 500 MG Tab PO ONE (16:40)
[2024-05-18 16:44] VITALS: PULSE 95
[2024-05-18 18:11] VITALS: BP 118/68
== END 2024-05-18 17:36 ==
LOC: FB.ED 14:01
DX: A41.9 Sepsis, unspecified organism (principal); I13.0 Hypertensive heart and chronic kidney disease with heart failure and stage 1 through stage 4 chronic kidney disease, or unspecified chronic kidney disease; I50.9 Heart failure, unspecified; N18.32 Chronic kidney disease, stage 3b; F33.1 Major depressive disorder, recurrent, moderate; I48.91 Unspecified atrial fibrillation; R59.0 Localized enlarged lymph nodes; E78.00 Pure hypercholesterolemia, unspecified; K21.9 Gastro-esophageal reflux disease without esophagitis; Z86.73 Personal history of transient ischemic attack (TIA), and cerebral infarction without residual deficits; Z79.899 Other long term (current) drug therapy; Z79.01 Long term (current) use of anticoagulants; Z88.8 Allergy status to other drugs, medicaments and biological substances
CPT/HCPCS: 0241U; 36415; 51702; 71045; 71260; 74177; 80053; 83605; 83880; 84484; 86140; 87040; 87086; 87088; 87186; 93005; 93010; 96361; 96365; 96366; 96368; 96375; 99285; A9270; J0696; J1885; J2543; J3370; J3490; J7030; Q9967

== ENCOUNTER 2024-07-05 06:54 | Day surgery (SDC) | payer MEDICAID ==
[~2024-07-05 06:54] MED LIST: Sodium Chloride 0.9% 1,000 ML IV SCH
[2024-07-05] MEDS ORDERED: fentaNYL 100 MCG/2 ML SDV IV ONE (06:55)
[2024-07-05] MEDS ORDERED: Midazolam 1 MG/ML 2 ML SDV IV ONE (06:55)
[2024-07-05] MEDS: Sodium Chloride 0.9% 10 ML Syringe FLUSH PRN (08:00)
[2024-07-05] MEDS: Lactated Ringers 1,000 ML IV SCH (08:22)
[2024-07-05] MEDS: acetaZOLAMIDE 500 MG Cap.ER PO ONE (09:30)
[2024-07-05 12:02] VITALS: BP 104/61; PULSE 64
== END 2024-07-05 10:32 | disposition home or self-care (01) ==
LOC: FB.SDS 06:54
PROVIDERS: ATTEND Ophthalmology
DX: H26.9 Unspecified cataract (principal); H21.81 Floppy iris syndrome; I89.0 Lymphedema, not elsewhere classified; I87.2 Venous insufficiency (chronic) (peripheral); I48.11 Longstanding persistent atrial fibrillation; I25.10 Atherosclerotic heart disease of native coronary artery without angina pectoris; I12.9 Hypertensive chronic kidney disease with stage 1 through stage 4 chronic kidney disease, or unspecified chronic kidney disease; N18.31 Chronic kidney disease, stage 3a; G47.33 Obstructive sleep apnea (adult) (pediatric); F33.1 Major depressive disorder, recurrent, moderate; F41.9 Anxiety disorder, unspecified; E78.5 Hyperlipidemia, unspecified; Z79.899 Other long term (current) drug therapy; Z88.8 Allergy status to other drugs, medicaments and biological substances; Z86.16 Personal history of COVID-19
CPT/HCPCS: 00142; 99100; A9270-GY; J2250; J3010; J3490; J7120; V2632

== ENCOUNTER 2024-07-19 14:42 | Inpatient (IN) | payer MEDICARE, MEDICAID ==
[2024-07-19 15:31] LABS: BASOPHILS ABSOLUTE AUTO 0.1 x10-3/uL (0.0-0.1); BASOPHILS PERCENT AUTO 0.9 % (0.2-1.5); EOSINOPHILS ABSOLUTE AUTO 0.4 x10-3/uL (0.0-0.8); EOSINOPHILS PERCENT AUTO 3.7 % (0.6-8.1); HEMATOCRIT 34.9 % (34.2-48.2); HEMOGLOBIN 11.5 g/dL (11.4-15.5); LYMPHOCYTES ABSOLUTE AUTO 0.8 x10-3/uL (1.0-4.4); MEAN CORPUSCULAR HEMOGLOBIN 29.5 pg (23.9-33.9); MEAN CORPUSCULAR HGB CONC 32.8 g/dL (31.9-34.8); MEAN CORPUSCULAR VOLUME 89.9 fL (76.7-100.5); MEAN PLATELET VOLUME 7.1 fL (7.1-12.4); MONOCYTES ABSOLUTE AUTO 0.7 x10-3/uL (0.3-1.0); MONOCYTES PERCENT AUTO 7.4 % (4.4-15.7); NEUTROPHILS ABSOLUTE AUTO 7.9 x10-3/uL (1.5-6.3); PLATELET COUNT,PLT 366 x10(3)uL (151-488); RED BLOOD CELL COUNT 3.89 x10(6)uL (3.60-5.20); RED CELL DISTRIBUTION WIDTH 16.3 % (12.3-16.5); WHITE BLOOD CELL COUNT,WBC 9.9 x10-3/uL (3.0-10.3)
[2024-07-19 15:35] LABS: BLOOD UREA NITROGEN,BUN 18 mg/dL (7-18); BUN/CREATININE RATIO 11.3 (9-20); CALCIUM 8.6 mg/dL (8.6-10.2); CARBON DIOXIDE,CO2 23 mmol/L (21-32); CHLORIDE,CL 109 mmol/L (100-110); CREATININE 1.6 mg/dL (0.55-1.02); ESTIMATED GFR 34 mL/min (>60); GLUCOSE RANDOM 126 mg/dL (80-116); POTASSIUM,K 4.6 mmol/L (3.5-5.3); SODIUM,NA 141 mmol/L (135-145)
[2024-07-19 15:41] LABS: A/G RATIO 0.8; ALANINE AMINOTRANSFERASE,ALT 33 U/L (12-36); ALBUMIN 3.2 g/dL (3.2-4.6); ALKALINE PHOSPHATASE 125 IU/L (56-112); ASPARTATE AMNIOTRANSFERASE,AST 28 IU/L (5-25); BILIRUBIN TOTAL 0.3 mg/dL (0.1-1.3); MAGNESIUM 1.9 mg/dL (1.8-2.5); PROTEIN TOTAL,TP 7.3 g/dL (6.0-8.0)
[2024-07-19] MEDS ORDERED: Bisacodyl 10 MG Supp RECTAL PRN (17:13)
[2024-07-19] MEDS ORDERED: Calcium Carbonate 500 MG Tab.Chew PO PRN (17:13)
[2024-07-19] MEDS ORDERED: Acetaminophen 650 MG Supp RECTAL PRN (17:19)
[2024-07-19] MEDS: Midodrine 5 MG Tab PO SCH (17:44)
[2024-07-19] MEDS: Acetaminophen 325 MG Tab PO PRN (17:44)
[2024-07-19] MEDS: VANCOmycin 1.5 GM/300 ML 1.5 GM in Premix Bag 1 BAG IV ONE (18:22)
[2024-07-19] MEDS: Sodium Chloride 0.9% 10 ML Syringe FLUSH PRN (18:24)
[2024-07-19] MEDS: Pantoprazole 40 MG Tab.CR PO SCH (20:28)
[2024-07-19] MEDS: Apixaban 5 MG Tab PO SCH (20:29)
[2024-07-19] MEDS: Gabapentin 100 MG Cap PO SCH (20:29)
[2024-07-19] MEDS: hydrOXYzine HCl 25 MG Tab PO SCH (20:29)
[2024-07-19] MEDS: [UNRECOGNIZED DRUG - OTHER] EYEBOTH SCH (20:31)
[2024-07-19] MEDS: PREDNISOLONE ACETATE 1% EYERT SCH (20:31)
[2024-07-19] MEDS ORDERED: Carboxymethylcellulose Sodium 0.5% Ophth Soln 15 ML Bottle EYEBOTH SCH (21:00)
[2024-07-20] MEDS: Cyclobenzaprine 10 MG Tab PO PRN (01:19)
[2024-07-20 06:41] LABS: BASOPHILS ABSOLUTE AUTO 0.2 x10-3/uL (0.0-0.1); BASOPHILS PERCENT AUTO 2.8 % (0.2-1.5); EOSINOPHILS ABSOLUTE AUTO 0.4 x10-3/uL (0.0-0.8); EOSINOPHILS PERCENT AUTO 7.9 % (0.6-8.1); HEMATOCRIT 30.8 % (34.2-48.2); HEMOGLOBIN 10.1 g/dL (11.4-15.5); LYMPHOCYTES ABSOLUTE AUTO 0.9 x10-3/uL (1.0-4.4); LYMPHOCYTES PERCENT AUTO 15.3 % (18.4-52.1); MEAN CORPUSCULAR HEMOGLOBIN 29.5 pg (23.9-33.9); MEAN CORPUSCULAR HGB CONC 32.9 g/dL (31.9-34.8); MEAN CORPUSCULAR VOLUME 89.6 fL (76.7-100.5); MEAN PLATELET VOLUME 7.5 fL (7.1-12.4); MONOCYTES ABSOLUTE AUTO 0.6 x10-3/uL (0.3-1.0); MONOCYTES PERCENT AUTO 11.5 % (4.4-15.7); NEUTROPHILS ABSOLUTE AUTO 3.5 x10-3/uL (1.5-6.3); NEUTROPHILS PERCENT AUTO 62.5 % (30.8-76.2); PLATELET COUNT,PLT 323 x10(3)uL (151-488); RED BLOOD CELL COUNT 3.43 x10(6)uL (3.60-5.20); RED CELL DISTRIBUTION WIDTH 15.8 % (12.3-16.5); WHITE BLOOD CELL COUNT,WBC 5.6 x10-3/uL (3.0-10.3)
[2024-07-20 06:45] LABS: BLOOD UREA NITROGEN,BUN 18 mg/dL (7-18); BUN/CREATININE RATIO 12.9 (9-20); CALCIUM 8.1 mg/dL (8.6-10.2); CARBON DIOXIDE,CO2 22 mmol/L (21-32); CHLORIDE,CL 110 mmol/L (100-110); CREATININE 1.4 mg/dL (0.55-1.02); EST CRCL DRUG DOSING (CG) 25.71 mL/min; ESTIMATED GFR 40 mL/min (>60); GLUCOSE RANDOM 83 mg/dL (80-116); POTASSIUM,K 4.7 mmol/L (3.5-5.3); SODIUM,NA 141 mmol/L (135-145)
[2024-07-20] MEDS: Rosuvastatin 5 MG Tab PO SCH (09:32)
[2024-07-20] MEDS: Furosemide 20 MG Tab PO SCH (09:33)
[2024-07-20] MEDS: Potassium Chloride 10 MEQ Tab.ER PO SCH (09:33)
[2024-07-20] MEDS: Digoxin 125 MCG Tab PO SCH (09:33)
[2024-07-20] MEDS: Polyethylene Glycol 3350 Powder 17 GM Packet PO SCH (09:33)
[2024-07-20] MEDS: Ferrous Sulfate 325 MG Tab PO SCH (09:33)
[2024-07-20] MEDS: Sertraline 100 MG Tab PO SCH (09:34)
[2024-07-20] MEDS: Multivitamin Tab PO SCH (09:34)
[2024-07-20] MEDS: buPROPion 150 MG Tab.ER PO SCH (09:34)
[2024-07-20] MEDS: Cholecalciferol (Vitamin D3) 25 MCG Tab PO SCH (09:34)
[2024-07-20] MEDS: [UNRECOGNIZED DRUG - OTHER] TOP PRN (10:14)
[2024-07-20] MEDS: PETROLATUM WHITE TOP PRN (10:14)
[2024-07-21 06:55] LABS: BASOPHILS ABSOLUTE AUTO 0.1 x10-3/uL (0.0-0.1); BASOPHILS PERCENT AUTO 1.3 % (0.2-1.5); EOSINOPHILS ABSOLUTE AUTO 0.4 x10-3/uL (0.0-0.8); EOSINOPHILS PERCENT AUTO 6.1 % (0.6-8.1); HEMATOCRIT 34.4 % (34.2-48.2); HEMOGLOBIN 11.2 g/dL (11.4-15.5); LYMPHOCYTES PERCENT AUTO 15.7 % (18.4-52.1); MEAN CORPUSCULAR HEMOGLOBIN 29.2 pg (23.9-33.9); MEAN CORPUSCULAR HGB CONC 32.5 g/dL (31.9-34.8); MEAN CORPUSCULAR VOLUME 89.7 fL (76.7-100.5); MEAN PLATELET VOLUME 7.4 fL (7.1-12.4); MONOCYTES ABSOLUTE AUTO 0.6 x10-3/uL (0.3-1.0); MONOCYTES PERCENT AUTO 9.7 % (4.4-15.7); NEUTROPHILS ABSOLUTE AUTO 4.3 x10-3/uL (1.5-6.3); NEUTROPHILS PERCENT AUTO 67.2 % (30.8-76.2); PLATELET COUNT,PLT 344 x10(3)uL (151-488); RED BLOOD CELL COUNT 3.83 x10(6)uL (3.60-5.20); RED CELL DISTRIBUTION WIDTH 16.3 % (12.3-16.5); WHITE BLOOD CELL COUNT,WBC 6.4 x10-3/uL (3.0-10.3)
[2024-07-21 06:59] LABS: BLOOD UREA NITROGEN,BUN 17 mg/dL (7-18); BUN/CREATININE RATIO 14.2 (9-20); CALCIUM 8.6 mg/dL (8.6-10.2); CARBON DIOXIDE,CO2 23 mmol/L (21-32); CHLORIDE,CL 109 mmol/L (100-110); CREATININE 1.2 mg/dL (0.55-1.02); EST CRCL DRUG DOSING (CG) 29.99 mL/min; ESTIMATED GFR 48 mL/min (>60); GLUCOSE RANDOM 84 mg/dL (80-116); POTASSIUM,K 4.6 mmol/L (3.5-5.3); SODIUM,NA 141 mmol/L (135-145)
[2024-07-21] MEDS: Loperamide 2 MG Cap PO PRN (10:26)
[2024-07-22 06:22] LABS: BASOPHILS ABSOLUTE AUTO 0.1 x10-3/uL (0.0-0.1); BASOPHILS PERCENT AUTO 1.1 % (0.2-1.5); EOSINOPHILS ABSOLUTE AUTO 0.4 x10-3/uL (0.0-0.8); EOSINOPHILS PERCENT AUTO 5.6 % (0.6-8.1); HEMATOCRIT 32.3 % (34.2-48.2); HEMOGLOBIN 10.5 g/dL (11.4-15.5); LYMPHOCYTES ABSOLUTE AUTO 0.9 x10-3/uL (1.0-4.4); LYMPHOCYTES PERCENT AUTO 13.6 % (18.4-52.1); MEAN CORPUSCULAR HEMOGLOBIN 29.1 pg (23.9-33.9); MEAN CORPUSCULAR HGB CONC 32.5 g/dL (31.9-34.8); MEAN CORPUSCULAR VOLUME 89.5 fL (76.7-100.5); MEAN PLATELET VOLUME 7.2 fL (7.1-12.4); MONOCYTES ABSOLUTE AUTO 0.8 x10-3/uL (0.3-1.0); MONOCYTES PERCENT AUTO 11.9 % (4.4-15.7); NEUTROPHILS ABSOLUTE AUTO 4.5 x10-3/uL (1.5-6.3); NEUTROPHILS PERCENT AUTO 67.8 % (30.8-76.2); PLATELET COUNT,PLT 325 x10(3)uL (151-488); RED BLOOD CELL COUNT 3.61 x10(6)uL (3.60-5.20); RED CELL DISTRIBUTION WIDTH 15.6 % (12.3-16.5); WHITE BLOOD CELL COUNT,WBC 6.6 x10-3/uL (3.0-10.3)
[2024-07-22 06:31] LABS: BLOOD UREA NITROGEN,BUN 18 mg/dL (7-18); BUN/CREATININE RATIO 16.4 (9-20); CALCIUM 8.3 mg/dL (8.6-10.2); CARBON DIOXIDE,CO2 25 mmol/L (21-32); CHLORIDE,CL 109 mmol/L (100-110); CREATININE 1.1 mg/dL (0.55-1.02); EST CRCL DRUG DOSING (CG) 32.72 mL/min; ESTIMATED GFR 53 mL/min (>60); GLUCOSE RANDOM 85 mg/dL (80-116); POTASSIUM,K 4.4 mmol/L (3.5-5.3); SODIUM,NA 141 mmol/L (135-145)
[2024-07-22 08:40] VITALS: PULSE 92
[2024-07-22 12:55] VITALS: BP 102/65
== END 2024-07-22 13:05 | DRG 603 ==
LOC: FB.ED 14:42 → FB.MS 16:33 → OBSVTOIN 07-21 09:49
PROVIDERS: ADMIT Internal Medicine; ATTEND Internal Medicine
DX: L03.116 Cellulitis of left lower limb (principal); I13.0 Hypertensive heart and chronic kidney disease with heart failure and stage 1 through stage 4 chronic kidney disease, or unspecified chronic kidney disease; I50.32 Chronic diastolic (congestive) heart failure; I48.20 Chronic atrial fibrillation, unspecified; N18.4 Chronic kidney disease, stage 4 (severe); N17.9 Acute kidney failure, unspecified; L03.115 Cellulitis of right lower limb; K52.9 Noninfective gastroenteritis and colitis, unspecified; I87.8 Other specified disorders of veins; G47.33 Obstructive sleep apnea (adult) (pediatric); F41.9 Anxiety disorder, unspecified; F32.A Depression, unspecified; E78.00 Pure hypercholesterolemia, unspecified; I73.9 Peripheral vascular disease, unspecified; I25.10 Atherosclerotic heart disease of native coronary artery without angina pectoris; M81.0 Age-related osteoporosis without current pathological fracture; I11.0 Hypertensive heart disease with heart failure; D50.9 Iron deficiency anemia, unspecified; I95.9 Hypotension, unspecified; R74.01 Elevation of levels of liver transaminase levels; I50.9 Heart failure, unspecified; K21.9 Gastro-esophageal reflux disease without esophagitis; Z86.73 Personal history of transient ischemic attack (TIA), and cerebral infarction without residual deficits; Z79.52 Long term (current) use of systemic steroids; Z90.710 Acquired absence of both cervix and uterus; Z96.659 Presence of unspecified artificial knee joint; Z98.890 Other specified postprocedural states; Z79.899 Other long term (current) drug therapy; Z79.01 Long term (current) use of anticoagulants; Z88.8 Allergy status to other drugs, medicaments and biological substances; Z88.1 Allergy status to other antibiotic agents
CPT/HCPCS: 36415 ×3; 80048 ×2; 80053; 80202; 83605; 83735; 83880; 85025 ×3; 86140; 87040 ×2; 93005; 94150; 96365; 96366; 97140; 97161; 99284; A9270 ×48; G0378 ×4; J3370; J3372; J3490 ×4; J7050; 93010; 93970; 99222; 99232; 99238; 99285

== ENCOUNTER 2024-08-02 08:30 | Day surgery (SDC) | payer MEDICAID, MEDICARE ==
[~2024-08-02 08:30] MED LIST changes: +Lactated Ringers 1,000 ML IV PRN; -Sodium Chloride 0.9% 1,000 ML IV SCH
[2024-08-02] MEDS ORDERED: Midazolam 1 MG/ML 2 ML SDV IV ONE (08:31)
[2024-08-02] MEDS: Sodium Chloride 0.9% 10 ML Syringe FLUSH PRN (09:10)
[2024-08-02] MEDS: acetaZOLAMIDE 500 MG Cap.ER PO ONE (10:56)
[2024-08-02 13:47] VITALS: PULSE 68
[2024-08-02 13:48] VITALS: BP 102/58
== END 2024-08-02 11:18 ==
LOC: FB.SDS 08:30
PROVIDERS: ATTEND Ophthalmology
DX: H26.9 Unspecified cataract (principal); I13.0 Hypertensive heart and chronic kidney disease with heart failure and stage 1 through stage 4 chronic kidney disease, or unspecified chronic kidney disease; I50.32 Chronic diastolic (congestive) heart failure; N18.31 Chronic kidney disease, stage 3a; D63.1 Anemia in chronic kidney disease; E78.5 Hyperlipidemia, unspecified; I48.11 Longstanding persistent atrial fibrillation; G47.33 Obstructive sleep apnea (adult) (pediatric); I89.0 Lymphedema, not elsewhere classified; I87.2 Venous insufficiency (chronic) (peripheral); I25.10 Atherosclerotic heart disease of native coronary artery without angina pectoris; F33.1 Major depressive disorder, recurrent, moderate; I87.339 Chronic venous hypertension (idiopathic) with ulcer and inflammation of unspecified lower extremity; Z86.16 Personal history of COVID-19; Z86.73 Personal history of transient ischemic attack (TIA), and cerebral infarction without residual deficits; Z79.899 Other long term (current) drug therapy; Z79.01 Long term (current) use of anticoagulants; Z88.8 Allergy status to other drugs, medicaments and biological substances
CPT/HCPCS: 66984; A9270; J2250; J3490; V2632; 00142; 99100

== ENCOUNTER 2024-10-30 15:04 | Emergency (ER) | payer MEDICAID, MEDICARE, OTHER ==
[2024-10-30 15:40] LABS: HEMATOCRIT 38.6 % (34.2-48.2); HEMOGLOBIN 12.8 g/dL (11.4-15.5); MEAN CORPUSCULAR HEMOGLOBIN 30.2 pg (23.9-33.9); MEAN CORPUSCULAR HGB CONC 33.1 g/dL (31.9-34.8); MEAN CORPUSCULAR VOLUME 91.4 fL (76.7-100.5); MEAN PLATELET VOLUME 7.3 fL (7.1-12.4); PLATELET COUNT,PLT 425 x10(3)uL (151-488); RED BLOOD CELL COUNT 4.23 x10(6)uL (3.60-5.20); RED CELL DISTRIBUTION WIDTH 15.1 % (12.3-16.5); WHITE BLOOD CELL COUNT,WBC 13.9 x10-3/uL (3.0-10.3)
[2024-10-30 15:42] LABS: BLOOD UREA NITROGEN,BUN 24 mg/dL (7-18); BUN/CREATININE RATIO 17.1 (9-20); CALCIUM 8.7 mg/dL (8.6-10.2); CARBON DIOXIDE,CO2 22 mmol/L (21-32); CHLORIDE,CL 107 mmol/L (100-110); CREATININE 1.4 mg/dL (0.55-1.02); ESTIMATED GFR 40 mL/min (>60); GLUCOSE RANDOM 100 mg/dL (80-116); POTASSIUM,K 4.3 mmol/L (3.5-5.3); SODIUM,NA 142 mmol/L (135-145)
[2024-10-30 15:48] LABS: A/G RATIO 0.7; ALANINE AMINOTRANSFERASE,ALT 40 U/L (12-36); ALBUMIN 3.2 g/dL (3.2-4.6); ALKALINE PHOSPHATASE 134 IU/L (56-112); ASPARTATE AMNIOTRANSFERASE,AST 30 IU/L (5-25); BILIRUBIN TOTAL 0.2 mg/dL (0.1-1.3); PROTEIN TOTAL,TP 7.6 g/dL (6.0-8.0)
[2024-10-30 15:57] LABS: LYMPHOCYTES PERCENT MAN 2 % (13-37); MONOCYTES PERCENT MAN 2 % (4-12); SEG NEUTROPHILS PERCENT MAN 96 % (46-82)
[2024-10-30 16:11] LABS: APPEARANCE,URINE CLEAR (CLEAR); BILIRUBIN,URINE NEGATIVE (NEGATIVE); COLOR,URINE YELLOW (YELLOW); GLUCOSE,URINE NORMAL (NORMAL); KETONES,URINE NEGATIVE (NEGATIVE); LEUKOCYTE ESTERASE,URINE NEGATIVE (NEGATIVE); NITRITE,URINE NEGATIVE (NEGATIVE); OCCULT BLOOD,URINE NEGATIVE (NEGATIVE); PROTEIN,URINE NEGATIVE (NEGATIVE); UROBILINOGEN,URINE NORMAL (NEGATIVE)
[2024-10-30] MEDS: Acetaminophen 500 MG Tab PO ONE (16:18)
[2024-10-30] MEDS: Ibuprofen 400 MG Tab PO ONE (16:47)
[2024-10-30] MEDS: Amoxicillin/Clavulanate K 875-125 MG Tab PO ONE (17:29)
[2024-10-30] MEDS: Azithromycin 500 MG Tab PO ONE (17:30)
[2024-10-30 17:56] VITALS: BP 125/72; PULSE 121
== END 2024-10-30 17:40 | disposition home or self-care (01) ==
LOC: FB.ED 15:04
DX: J18.9 Pneumonia, unspecified organism (principal); I11.0 Hypertensive heart disease with heart failure; I50.9 Heart failure, unspecified; I25.10 Atherosclerotic heart disease of native coronary artery without angina pectoris; I25.2 Old myocardial infarction; E78.00 Pure hypercholesterolemia, unspecified; K21.9 Gastro-esophageal reflux disease without esophagitis; I48.91 Unspecified atrial fibrillation; Z86.73 Personal history of transient ischemic attack (TIA), and cerebral infarction without residual deficits; Z90.710 Acquired absence of both cervix and uterus; Z79.899 Other long term (current) drug therapy; Z79.01 Long term (current) use of anticoagulants; Z88.8 Allergy status to other drugs, medicaments and biological substances; Z88.2 Allergy status to sulfonamides
CPT/HCPCS: 36415; 71045; 80053; 81003; 85025; 87428; 99284; A9270

== ENCOUNTER 2024-10-31 11:29 | Emergency (ER) | payer MEDICAID, OTHER ==
[2024-10-31 12:19] LABS: HEMATOCRIT 36.2 % (34.2-48.2); MEAN CORPUSCULAR HEMOGLOBIN 30.1 pg (23.9-33.9); MEAN CORPUSCULAR HGB CONC 33.1 g/dL (31.9-34.8); MEAN CORPUSCULAR VOLUME 90.9 fL (76.7-100.5); MEAN PLATELET VOLUME 7.4 fL (7.1-12.4); PLATELET COUNT,PLT 331 x10(3)uL (151-488); RED BLOOD CELL COUNT 3.98 x10(6)uL (3.60-5.20); RED CELL DISTRIBUTION WIDTH 14.6 % (12.3-16.5); WHITE BLOOD CELL COUNT,WBC 12.8 x10-3/uL (3.0-10.3)
[2024-10-31 12:22] LABS: BLOOD UREA NITROGEN,BUN 22 mg/dL (7-18); BUN/CREATININE RATIO 16.9 (9-20); CALCIUM 8.7 mg/dL (8.6-10.2); CARBON DIOXIDE,CO2 21 mmol/L (21-32); CHLORIDE,CL 106 mmol/L (100-110); CREATININE 1.3 mg/dL (0.55-1.02); EST CRCL DRUG DOSING (CG) 27.68 mL/min; ESTIMATED GFR 43 mL/min (>60); GLUCOSE RANDOM 83 mg/dL (80-116); POTASSIUM,K 4.3 mmol/L (3.5-5.3); SODIUM,NA 138 mmol/L (135-145)
[2024-10-31 12:28] LABS: A/G RATIO 0.6; ALANINE AMINOTRANSFERASE,ALT 38 U/L (12-36); ALBUMIN 2.7 g/dL (3.2-4.6); ALKALINE PHOSPHATASE 121 IU/L (56-112); ASPARTATE AMNIOTRANSFERASE,AST 34 IU/L (5-25); BILIRUBIN TOTAL 0.4 mg/dL (0.1-1.3)
[2024-10-31] MEDS: Iopamidol 755 Mg/ML 100 ML Bottle IV SCH (12:32)
[2024-10-31 12:34] LABS: BAND PERCENT MAN 1 % (0-6); LYMPHOCYTES PERCENT MAN 6 % (13-37); METAMYELOCYTE PERCENT MAN 1 % (0-0); SEG NEUTROPHILS PERCENT MAN 92 % (46-82)
[2024-10-31] MEDS: Sodium Chloride 0.9% 1,000 ML IV ONE (12:34)
[2024-10-31] MEDS: methylPREDNISolone Sodium Succinate 125 MG/2 ML SDV IVPUSH ONE (12:38)
[2024-10-31 12:56] VITALS: BP 125/82; PULSE 76
== END 2024-10-31 13:58 | disposition home or self-care (01) ==
LOC: FB.ED 11:29
DX: J18.9 Pneumonia, unspecified organism (principal); I48.91 Unspecified atrial fibrillation; I25.10 Atherosclerotic heart disease of native coronary artery without angina pectoris; E78.00 Pure hypercholesterolemia, unspecified; I10 Essential (primary) hypertension; K21.9 Gastro-esophageal reflux disease without esophagitis; Z86.16 Personal history of COVID-19; Z90.710 Acquired absence of both cervix and uterus; Z79.899 Other long term (current) drug therapy; Z88.5 Allergy status to narcotic agent; Z88.2 Allergy status to sulfonamides
CPT/HCPCS: 36415; 71275; 80053; 83605; 84484; 85025; 86140; 96361; 96374; 99284; 99285; J2919; J7030; Q9967

== ENCOUNTER 2025-08-23 09:37 | Emergency (ER) | payer MEDICARE, MEDICAID ==
[2025-08-23 10:22] LABS: BASOPHILS ABSOLUTE AUTO 0.0 x10-3/uL (0.0-0.1); BASOPHILS PERCENT AUTO 0.3 % (0.2-1.5); EOSINOPHILS ABSOLUTE AUTO 0.1 x10-3/uL (0.0-0.8); EOSINOPHILS PERCENT AUTO 1.0 % (0.6-8.1); LYMPHOCYTES ABSOLUTE AUTO 0.8 x10-3/uL (1.0-4.4); LYMPHOCYTES PERCENT AUTO 7.2 % (18.4-52.1); MEAN PLATELET VOLUME 8.1 fL (7.1-12.4); MONOCYTES ABSOLUTE AUTO 0.8 x10-3/uL (0.3-1.0); MONOCYTES PERCENT AUTO 7.4 % (4.4-15.7); NEUTROPHILS ABSOLUTE AUTO 9.4 x10-3/uL (1.5-6.3); NEUTROPHILS PERCENT AUTO 84.1 % (30.8-76.2); PLATELET COUNT,PLT 390 x10(3)uL (151-488); RED BLOOD CELL COUNT 4.69 x10(6)uL (3.60-5.20); RED CELL DISTRIBUTION WIDTH 13.0 % (12.3-16.5); WHITE BLOOD CELL COUNT,WBC 11.2 x10-3/uL (3.0-10.3)
[2025-08-23 10:37] LABS: POTASSIUM,K 2.8 mmol/L (3.5-5.3)
[2025-08-23] MEDS: Potassium Chloride 20 MEQ Tab.ER PO ONE (11:10)
[2025-08-23] MEDS: Sodium Chloride 0.9% 10 ML Syringe FLUSH PRN (11:12)
[2025-08-23 11:37] LABS: APPEARANCE,URINE CLEAR (CLEAR); GLUCOSE,URINE NORMAL (NORMAL); OCCULT BLOOD,URINE NEGATIVE (NEGATIVE)
[2025-08-23 14:42] VITALS: BP 102/69; PULSE 73
== END 2025-08-23 15:10 ==
LOC: FB.ED 09:37
DX: E87.6 Hypokalemia (principal); E86.0 Dehydration; R56.9 Unspecified convulsions; I48.91 Unspecified atrial fibrillation; I25.10 Atherosclerotic heart disease of native coronary artery without angina pectoris; I11.0 Hypertensive heart disease with heart failure; I50.9 Heart failure, unspecified; E78.00 Pure hypercholesterolemia, unspecified; K21.9 Gastro-esophageal reflux disease without esophagitis; Z86.73 Personal history of transient ischemic attack (TIA), and cerebral infarction without residual deficits; Z86.16 Personal history of COVID-19; Z90.49 Acquired absence of other specified parts of digestive tract; Z88.8 Allergy status to other drugs, medicaments and biological substances; Z88.2 Allergy status to sulfonamides; Z88.1 Allergy status to other antibiotic agents; Z79.01 Long term (current) use of anticoagulants; Z79.899 Other long term (current) drug therapy
CPT/HCPCS: 36415; 70450; 81003; 83605; 83735; 84132; 84484; 85025; 93005; 96365; 96367; 99285; A9270; J1953; J3480; J7050

== ENCOUNTER 2025-08-27 15:59 | Emergency (ER) | payer MEDICARE, MEDICAID ==
[2025-08-27] MEDS: LORazepam 2 MG/ML SDV IM ONE (16:25)
[2025-08-27 16:35] LABS: BASOPHILS ABSOLUTE AUTO 0.1 x10-3/uL (0.0-0.1); BASOPHILS PERCENT AUTO 0.7 % (0.2-1.5); EOSINOPHILS ABSOLUTE AUTO 0.2 x10-3/uL (0.0-0.8); EOSINOPHILS PERCENT AUTO 2.7 % (0.6-8.1); LYMPHOCYTES ABSOLUTE AUTO 1.1 x10-3/uL (1.0-4.4); LYMPHOCYTES PERCENT AUTO 13.2 % (18.4-52.1); MEAN PLATELET VOLUME 7.8 fL (7.1-12.4); MONOCYTES ABSOLUTE AUTO 0.6 x10-3/uL (0.3-1.0); MONOCYTES PERCENT AUTO 6.9 % (4.4-15.7); NEUTROPHILS ABSOLUTE AUTO 6.6 x10-3/uL (1.5-6.3); NEUTROPHILS PERCENT AUTO 76.5 % (30.8-76.2); PLATELET COUNT,PLT 455 x10(3)uL (151-488); RED BLOOD CELL COUNT 5.02 x10(6)uL (3.60-5.20); RED CELL DISTRIBUTION WIDTH 12.8 % (12.3-16.5); WHITE BLOOD CELL COUNT,WBC 8.6 x10-3/uL (3.0-10.3)
[2025-08-27 16:38] LABS: BLOOD UREA NITROGEN,BUN 32 mg/dL (7-18); CARBON DIOXIDE,CO2 25 mmol/L (21-32); CHLORIDE,CL 104 mmol/L (100-110); CREATININE 1.2 mg/dL (0.55-1.02); ESTIMATED GFR 48 mL/min (>60); GLUCOSE RANDOM 114 mg/dL (80-116); POTASSIUM,K 4.5 mmol/L (3.5-5.3); SODIUM,NA 140 mmol/L (135-145)
[2025-08-27 16:49] LABS: A/G RATIO 0.7; ALANINE AMINOTRANSFERASE,ALT 47 U/L (12-36); ASPARTATE AMNIOTRANSFERASE,AST 43 IU/L (5-25); BILIRUBIN TOTAL 0.3 mg/dL (0.1-1.3); PROTEIN TOTAL,TP 8.1 g/dL (6.0-8.0)
[2025-08-27 18:34] VITALS: BP 108/72; PULSE 78
== END 2025-08-27 18:18 ==
LOC: FB.ED 15:59
DX: G24.01 Drug induced subacute dyskinesia (principal); R74.8 Abnormal levels of other serum enzymes; I48.91 Unspecified atrial fibrillation; I25.10 Atherosclerotic heart disease of native coronary artery without angina pectoris; I11.0 Hypertensive heart disease with heart failure; I50.9 Heart failure, unspecified; K21.9 Gastro-esophageal reflux disease without esophagitis; Z86.73 Personal history of transient ischemic attack (TIA), and cerebral infarction without residual deficits; Z86.16 Personal history of COVID-19; Z90.710 Acquired absence of both cervix and uterus; Z79.899 Other long term (current) drug therapy; Z79.01 Long term (current) use of anticoagulants; Z88.8 Allergy status to other drugs, medicaments and biological substances; Z88.2 Allergy status to sulfonamides
CPT/HCPCS: 36415; 80053; 83735; 85025; 86140; 96372; 99284; J2060; 99283